=== PATIENT | female | born 1940 | race Caucasian/White ===

== ENCOUNTER 2020-06-11 21:34 | Observation (INO) | payer MEDICARE ==
[2020-06-11] MEDS ORDERED: Sodium Chloride 0.9% 1000 ML 1,000 ML IV SCH (22:00)
[2020-06-11] MEDS ORDERED: ROCEPHIN 1 Gm-D5w 50 ml Bag** 1 G/50 ML IVPB IV ONE ×2 (22:01→22:10)
[2020-06-11 22:11] LABS: Absolute Neutrophil Ct (ANC) 6.45 (1.4-6.9); BASOPHIL % 0.2 % (0.0-0.4); Basophil (Absolute #) 0.02 (0-0.4); Eosinophil % 2.1 % (0.00-5.0); Eosinophil (Absolute #) 0.19 (0-0.5); Hematocrit 37.1 % (35-47); Hemoglobin 12.1 gm/dl (12.0-16.0); Lymphocyte (Absolute #) 1.76 (1.0-4.6); Lymphocytes % 19.2 % (24.0-44.0); Mean Corpuscular Hemoglobin 30.3 pg (26-32); Mean Corpuscular Hgb Concent. 32.6 g/dl (32-36); Mean Platelet Volume 8.8 fl (7.5-11.0); Monocyte (Absolute #) 0.75 (0.0-1.3); Monocytes % 8.2 % (0.0-12.0); Neutrophil % 70.3 % (36.0-66.0); Platelet Count 347 K/mm3 (150-450); Red Blood Count 3.99 M/mm3 (4.1-5.4); Red Cell Distribution Width 14.1 % (11.5-14.0); White Blood Count 9.2 K/mm3 (4.0-10.5)
[2020-06-11 22:26] LABS: ALBUMIN 4.7 g/dL (3.5-5.0); ANION GAP 16.6 MEQ/L (5-15); BILIRUBIN,TOTAL 0.4 mg/dL (0.2-1.3); Creatinine 1 1.13 mg/dL (0.52-1.04); EST GLOMERULAR FILTRATION RATE 49.5 ML/MIN; Potassium 3.3 mmol/L (3.5-5.1); Total Protein 8.3 g/dL (6.3-8.2)
[2020-06-11 22:31] LABS: Appearance SLIGHTLY CLOUDY (CLEAR); Bacteria MODERATE /HPF (NEGATIVE); Bilirubin NEGATIVE (NEGATIVE); Blood NEGATIVE Ery/ul (0-5); Glucose NEGATIVE (NEGATIVE); Ketones NEGATIVE (NEGATIVE); Leukocyte Esterase LARGE (NEGATIVE); Mucus SLIGHT /HPF (NEGATIVE); Nitrite NEGATIVE (NEGATIVE); Protein,Urine Dip NEGATIVE (Negative); Specific Gravity 1.012 (1.005-1.025); Urobilinogen NEGATIVE mg/dL (0-1); WBC 51-100 /HPF (0-5)
--- NOTE | 2020-06-11 22:47 | ERPHSYRPT ---
- History of Present Illness Source: family, EMS Exam Limitations: clinical condition Patient Subjective Stated Complaint: ems states that they were called to the home for abd pain and diarrhea Triage Nursing Assessment: pt came into er via ambulance, pt is alert, pt is co nfused, pt cover is feces, prolaspe rectum present, hyperactive bowel sounds in all quads, clear lung sounds in all lobes, states pain to rectum, vital wnl Physician History: 79 yo female bib ems. called ems. sts pt was having abd pain, confusion and incessant diarrhea. EMS confirms diarrhea No fever. Some nausea. Pt was not comprehending him and got concerned. Diarrhea started few hours ago. Timing/Duration: today Severity: moderate Associated Symptoms: nausea, malaise Allergies/Adverse Reactions: No Known Drug Allergies Allergy (Unverified 05/29/15 21:13) Home Medications: ALPRAZolam [Xanax 0.5 mg] 0.5 mg PO TID 10/18/14 [History] Amitriptyline HCl 50 mg PO HS 10/18/14 [History] B12/Levomefolate Calcium/B-6 [Folbic Rf Tablet] 1 tab PO DAILY 10/18/14 [History] Memantine HCl [Namenda] 10 mg PO DAILY 10/18/14 [History] Rosuvastatin Calcium [Crestor] 5 mg PO HS 10/18/14 [History] Trandolapril/Verapamil HCl [Tarka ER 4-240 mg Tablet] 1 tab PO DAILY 10/18/14 [History] Meloxicam 7.5 mg PO 06/11/20 [History] Hx Tetanus, Diphtheria Vaccination/Date Given: No (unknown) Hx Influenza Vaccination/Date Given: No (unknown) Hx Pneumococcal Vaccination/Date Given: No (unknown) Travel Risk - International Travel Have you traveled outside of the country in past 3 weeks: No - Coronavirus Screening Are you exhibiting any of the following symptoms?: Yes Symptoms: Vomiting/Diarrhea Close contact with a COVID-19 positive Pt in past 14-21 Days: No - Review of Systems Constitutional: Malaise, No Fever, No Chills Eyes: No Symptoms Ears, Nose, & Throat: No Symptoms Respiratory: No Cough, No Dyspnea Cardiac: No Chest Pain, No Edema, No Syncope Abdominal/Gastrointestinal: Abdominal Pain, Nausea, Diarrhea, No Vomiting Genitourinary Symptoms: No Dysuria Musculoskeletal: No Back Pain, No Neck Pain Skin: No Rash Neurological: No Dizziness, No Focal Weakness, No Sensory Changes Psychological: No Symptoms Endocrine: No Symptoms All Other Systems: Reviewed and Negative - Past Medical History Pertinent Past Medical History: Yes Neurological History: Dementia Cardiac History: High Cholesterol, Hypertension Musculoskeletal History: Degenerative Disk Disease, Osteoarthritis, Osteoporosis Psycho-Social History: Depression - Past Surgical History Past Surgical History: Yes - Social History Smoking Status: Current every day smoker Exposure to second hand smoke: No Drug Use: none Patient Lives Alone: No - Female History Hx Now: No - Nursing Vital Signs Nursing Vital Signs: Initial Vital Signs Temperature 97.4 F 06/11/20 21:42 Pulse Rate 61 06/11/20 21:42 Respiratory Rate 18 06/11/20 21:42 Blood Pressure 94/51 06/11/20 21:42 O2 Sat by Pulse Oximetry 94 L 06/11/20 21:42 Pain Scale Pain Intensity 0 - Physical Exam General Appearance: no apparent distress, alert Eye Exam: PERRL/EOMI, eyes nml inspection Ears, Nose, Throat Exam: normal ENT inspection, TMs normal, pharynx normal, dry mucous membranes Neck Exam: normal inspection, non-tender, supple, full range of motion Respiratory Exam: normal breath sounds, lungs clear, No respiratory distress Cardiovascular Exam: regular rate/rhythm, normal heart sounds, normal peripheral pulses Gastrointestinal/Abdomen Exam: soft, normal bowel sounds, No tenderness, No mass Pelvic Exam: not done Rectal Exam: tenderness, decreased tone, other (mild prolapsed rectum.) Back Exam: normal inspection, normal range of motion, No CVA tenderness, No vertebral tenderness Extremity Exam: normal inspection, normal range of motion, pelvis stable Neurologic Exam: alert, oriented x 3, cooperative, normal mood/affect, nml cerebellar function, nml station & gait, sensation nml, No motor deficits Skin Exam: normal color, warm, dry, No rash Lymphatic Exam: No adenopathy SpO2: 92 - Course Nursing assessment & vital signs reviewed: Yes EKG Interpreted by Me: RATE ([id number]), Sinus Rhythm, prolonged QT interval Ordered Tests: Active Orders 24 hr Category Date Time Status Up With Assistance ROUTINE Activity 06/11/20 23:12 Active Code Status Order ROUTINE Care 06/11/20 23:12 Active EKG-ER Only STAT Care 06/11/20 22:08 Active Fall Protocol ROUTINE Care 06/11/20 23:14 Active Roberts [Catheter-[place] Roberts] STAT Care 06/11/20 21:52 Active IV Care Q6H Care 06/11/20 23:12 Active IV Insertion STAT Care 06/11/20 21:47 Active IV Insertion-2nd Peripheral STAT Care 06/11/20 22:08 Active Intake and Output Q12H Care 06/11/20 23:12 Active Neuro Checks Q4H Care 06/11/20 23:[address] in Observation ROUTINE Care 06/11/20 23:12 Active Telemetry q6h Care 06/11/20 23:12 Active Vital Signs Q4H Care 06/11/20 23:12 Active Heart-Healthy Diet Diet 06/12/20 Breakfast Active BLOOD CULTURE Stat Lab 06/11/20 22:25 Received CBC W DIFF AM.LAB Lab 06/12/20 04:00 Ordered CBC W DIFF Stat Lab 06/11/20 22:00 Completed CMP AM.LAB Lab 06/12/20 04:00 Ordered CMP Stat Lab 06/11/20 22:00 Completed CULTURE,URINE Stat Lab 06/11/20 21:50 Received LIPASE Stat Lab 06/11/20 22:00 Completed UA W/RFX UR CULTURE Stat Lab 06/11/20 21:50 Completed Oxygen Oxymizer LPM 2 lpm RT 06/11/20 23:12 Active Pulse Oximetry CONTINUOUS RT 06/11/20 23:14 Active Medication Summary Generic Name Dose Route Start Last Admin Trade Name Freq PRN Reason Stop Dose Admin Acetaminophen 650 mg 06/11/20 23:12 Tylenol 325 Mg PO 07/11/20 23:11 Q4H PRN PRN PAIN AND/OR FEVER Sodium Chloride 1,000 mls @ 100 mls/hr 06/11/20 22:00 06/11/20 22:13 Sodium Chloride 0.9% 1000 Ml IV 07/11/20 21:59 100 mls/hr .Q10H ÓSCAR Administration Potassium Chloride/Sodium Chloride 1,000 mls @ 100 mls/hr 06/11/20 23:15 Sodium Chloride 0.9% W/ 20 Meq Kcl/Liter IV 07/11/20 23:14 .Q10H ÓSCAR Ceftriaxone Sodium/Dextrose 1 g in 50 mls @ 100 mls/hr 06/12/20 10:00 Rocephin 1 Gm-D5w 50 Ml Bag IV 07/12/20 09:59 Q24H10 ÓSCAR Discontinued Medications Generic Name Dose Route Start Last Admin Trade Name Constantine PRN Reason Stop Dose Admin Alprazolam 0.5 mg 06/11/20 23:17 06/11/20 23:22 Xanax 0.5 Mg PO 06/11/20 23:18 0.5 mg STAT ONE Administration Alprazolam Confirm 06/11/20 23:22 Xanax 0.5 Mg Administered 06/11/20 23:23 Dose 0.5 mg .ROUTE .STK-MED ONE Ceftriaxone Sodium/Dextrose 1 g in 50 mls @ 100 mls/hr 06/11/20 22:01 06/11/20 23:06 Rocephin 1 Gm-D5w 50 Ml Bag IV 06/11/20 22:30 Infused STAT ONE Infusion Ceftriaxone Sodium/Dextrose Confirm 06/11/20 22:10 Rocephin 1 Gm-D5w 50 Ml Bag Administered 06/11/20 22:11 Dose 1 g in 50 mls @ ud IV .STK-MED ONE Lab/Rad Data: Laboratory Result Diagrams 06/11/20 22:00 06/11/20 22:00 Laboratory Results 06/11/20 06/11/20 06/11/20 Range/Units 22:00 22:00 21:50 WBC 9.2 (4.0-10.5) K/mm3 RBC 3.99 L (4.1-5.4) M/mm3 Hgb 12.1 (12.0-16.0) gm/dl Hct 37.1 (35-47) % MCV 93.0 (78-100) fl MCH 30.3 (26-32) pg MCHC 32.6 (32-36) g/dl RDW 14.1 H (11.5-14.0) % Plt Count 347 (150-450) K/mm3 MPV 8.8 (7.5-11.0) fl Gran % 70.3 H (36.0-66.0) % Eos # (Auto) 0.19 (0-0.5) Absolute Lymphs (auto) 1.76 (1.0-4.6) Absolute Monos (auto) 0.75 (0.0-1.3) Lymphocytes % 19.2 L (24.0-44.0) % Monocytes % 8.2 (0.0-12.0) % Eosinophils % 2.1 (0.00-5.0) % Basophils % 0.2 (0.0-0.4) % Absolute Granulocytes 6.45 (1.4-6.9) Basophils # 0.02 (0-0.4) Sodium 133 L (137-145) mmol/L Potassium 3.3 L (3.5-5.1) mmol/L Chloride 97 L (98-107) mmol/L Carbon Dioxide 23 (22-30) mmol/L Anion Gap 16.6 H (5-15) MEQ/L BUN 16 (7-17) mg/dL Creatinine 1.13 H (0.52-1.04) mg/dL Estimated GFR 49.5 ML/MIN Glucose 132 H (74-106) mg/dL Calcium 10.0 (8.4-10.2) mg/dL Total Bilirubin 0.40 (0.2-1.3) mg/dL AST 32 (14-36) U/L ALT 14 (0-35) U/L Alkaline Phosphatase 108 (38-126) U/L Serum Total Protein 8.3 H (6.3-8.2) g/dL Albumin 4.7 (3.5-5.0) g/dL Lipase 261 (23-300) U/L Urine Color YELLOW (YELLOW) Urine Appearance SLIGHTLY CLOUDY (CLEAR) Urine pH 6.0 (5-6) Ur Specific [place] 1.012 (1.005-1.025) Urine Protein NEGATIVE (Negative) Urine Ketones NEGATIVE (NEGATIVE) Urine Blood NEGATIVE (0-5) Ld/ul Urine Nitrite NEGATIVE (NEGATIVE) Urine Bilirubin NEGATIVE (NEGATIVE) Urine Urobilinogen NEGATIVE (0-1) mg/dL Ur Leukocyte Esterase LARGE (NEGATIVE) Urine WBC (Auto) 51-100 (0-5) /HPF Urine RBC (Auto) 6-10 (0-2) /HPF U Epithel Cells (Auto) NONE (FEW) /HPF Urine Bacteria (Auto) MODERATE (NEGATIVE) /HPF Urine Mucus (Auto) SLIGHT (NEGATIVE) /HPF Urine Culture Reflexed ORDERED SEPARATELY (NO) Urine Glucose NEGATIVE (NEGATIVE) mg/dL - Progress Progress: improved Progress Note: 06/11/20 23:37 work up for abd pain with labs and UA. Did not feel imaging was necessary given benign exam. Labs normal. No further workup. UA positive for UTI. Rocephin IV, IVF Admit for obs, IV abx, IVF, monitoring. D/w Dr. Chrisyt who agrees with admission. Discussed with : Mar Will see patient in: hospital (observation) Counseled pt/family regarding: lab results, diagnosis - Departure Departure Disposition: Observation Clinical Impression: UTI (urinary tract infection), Diarrhea Condition: Stable Critical Care Time: No Referrals: ALEX ECSALERA MD [Primary Care Provider] -
[2020-06-11] MEDS ORDERED: TYLENOL 325 MG PO PRN (23:12)
[2020-06-11] MEDS ORDERED: Sodium Chloride 0.9% W/ 20 mEq KCl/LITER 1,000 ML IV SCH (23:15)
[2020-06-11] MEDS ORDERED: xanAX 0.5 MG PO ONE (23:17)
[2020-06-11] MEDS ORDERED: xanAX 0.5 MG ONE (23:22)
[2020-06-12 05:08] LABS: BASOPHIL % 0.1 % (0.0-0.4); Basophil (Absolute #) 0.01 (0-0.4); Eosinophil % 0.5 % (0.00-5.0); Eosinophil (Absolute #) 0.04 (0-0.5); Hematocrit 32.4 % (35-47); Hemoglobin 10.5 gm/dl (12.0-16.0); Lymphocyte (Absolute #) 1.19 (1.0-4.6); Lymphocytes % 14.9 % (24.0-44.0); Mean Cell Volume 93.1 fl (78-100); Mean Corpuscular Hemoglobin 30.2 pg (26-32); Mean Corpuscular Hgb Concent. 32.4 g/dl (32-36); Mean Platelet Volume 8.9 fl (7.5-11.0); Monocyte (Absolute #) 0.77 (0.0-1.3); Monocytes % 9.6 % (0.0-12.0); Neutrophil % 74.9 % (36.0-66.0); Platelet Count 304 K/mm3 (150-450); Red Blood Count 3.48 M/mm3 (4.1-5.4); Red Cell Distribution Width 14.2 % (11.5-14.0)
[2020-06-12 05:26] LABS: ALBUMIN 3.8 g/dL (3.5-5.0); ANION GAP 11.5 MEQ/L (5-15); BILIRUBIN,TOTAL 0.3 mg/dL (0.2-1.3); Calcium 9.1 mg/dL (8.4-10.2); Creatinine 1 0.99 mg/dL (0.52-1.04); EST GLOMERULAR FILTRATION RATE 57.7 ML/MIN; Potassium 4.8 mmol/L (3.5-5.1)
--- NOTE | 2020-06-12 09:06 | PCM.HP ---
History of Present Illness - Chief Complaint Chief Complaint: UTI, Diarrhea History of Present Illness: is a 79 year old female.states that they were called to the home for abd pain and diarrhea - Review of Systems Constitutional: Fever, Chills, Fatigue, Lethargy, Weakness Eyes: No Symptoms Ears, Nose, & Throat: No Symptoms Respiratory: No Cough, No Short Of Breath Cardiac: No Chest Pain, No Edema, No Syncope Abdominal/Gastrointestinal: Abdominal Pain, Nausea, Vomiting, Diarrhea Genitourinary Symptoms: No Dysuria Musculoskeletal: No Back Pain, No Neck Pain Skin: No Rash Neurological: No Dizziness, No Focal Weakness, No Sensory Changes Psychological: No Symptoms Endocrine: No Symptoms Hematologic/Lymphatic: No Symptoms Immunological/Allergic: No Symptoms Medications & Allergies Home Medications: Home Medication List ALPRAZolam [Xanax 0.5 mg] 0.5 mg PO HS 10/18/14 [History Confirmed 06/12/20] Amitriptyline HCl 50 mg PO HS 10/18/14 [History Confirmed 06/11/20] B12/Levomefolate Calcium/B-6 [Folbic Rf Tablet] 1 tab PO DAILY 10/18/14 [History Confirmed 06/11/20] Memantine HCl [Namenda] 10 mg PO HS 10/18/14 [History Confirmed 06/12/20] Rosuvastatin Calcium [Crestor] 5 mg PO HS 10/18/14 [History Confirmed 06/11/20] Trandolapril/Verapamil HCl [Tarka ER 4-240 mg Tablet] 1 tab PO DAILY 10/18/14 [History Confirmed 06/11/20] Meloxicam 7.5 mg PO DAILY 06/11/20 [History Confirmed 06/12/20] Acetaminophen 325 mg [Tylenol 325 mg] 650 mg PO Q6HPRN PRN 06/12/20 [History Confirmed 06/12/20] Allergies/Adverse Reactions: Allergies Allergy/AdvReac Type Severity Reaction Status Date / Time No Known Drug Allergies Allergy Unverified 05/29/15 21:13 - Past Medical History Past Medical History: Yes Neurological History: Dementia Cardiac History: High Cholesterol, Hypertension Musculoskelatal History: Degenerative Disk Disease, Osteoarthritis, Osteoporosis Pyscho-Social History: Depression Comment: pt is a poor historian- no family accompanying pt due to Covid restrictions - Female History Are you now?: No - Past Surgical History Past Surgical History: Yes Other Surgical History: pt is a poor historian- no family accompanying pt due to Covid restrictions - Social History Smoking Status: Current every day smoker Exposure to second hand smoke: No Alcohol: None Drug Use: none - Physical Exam Vital Signs: Vital Signs - 24 hr Temp Pulse Resp BP BP Pulse Ox 06/12/20 07:51 98.1 F 73 16 117/59 94 L 06/12/20 07:31 98 06/12/20 04:00 97.8 F 70 20 102/59 96 06/12/20 00:24 97.5 F 71 20 114/57 93 L 06/12/20 00:21 97.5 F 71 20 114/57 93 L 06/12/20 00:12 97.5 F 71 20 114/57 93 L 06/11/20 23:39 92 L 06/11/20 23:14 93 L 06/11/20 23:05 66 19 92/54 98 06/11/20 22:27 68 18 93/55 92 L 06/11/20 21:42 97.4 F 61 18 94/51 94 L General Appearance: mild distress, lethargy Neurologic Exam: alert, sensation nml, No motor deficits Eye Exam: PERRL/EOMI Ears, Nose, Throat Exam: normal ENT inspection, TMs normal, pharynx normal, moist mucous membranes Neck Exam: normal inspection, non-tender, supple, full range of motion Respiratory Exam: normal breath sounds, lungs clear, No respiratory distress Cardiovascular Exam: regular rate/rhythm, normal heart sounds, normal peripheral pulses Gastrointestinal/Abdomen Exam: soft, tenderness, distention, pulsatile mass (left groin), rebound, No mass Back Exam: normal inspection, normal range of motion, No CVA tenderness, No vertebral tenderness Extremity Exam: normal inspection, normal range of motion, pelvis stable Skin Exam: normal color, warm, dry, No rash Lymphatic Exam: No adenopathy Results - Labs Lab/Micro Results: Lab Results-Last 24 Hours 06/11/20 06/11/20 06/11/20 Range/Units 21:50 22:00 22:00 WBC 9.2 (4.0-10.5) K/mm3 RBC 3.99 L (4.1-5.4) M/mm3 Hgb 12.1 (12.0-16.0) gm/dl Hct 37.1 (35-47) % MCV 93.0 (78-100) fl MCH 30.3 (26-32) pg MCHC 32.6 (32-36) g/dl RDW 14.1 H (11.5-14.0) % Plt Count 347 (150-450) K/mm3 MPV 8.8 (7.5-11.0) fl Gran % 70.3 H (36.0-66.0) % Eos # (Auto) 0.19 (0-0.5) Absolute Lymphs (auto) 1.76 (1.0-4.6) Absolute Monos (auto) 0.75 (0.0-1.3) Lymphocytes % 19.2 L (24.0-44.0) % Monocytes % 8.2 (0.0-12.0) % Eosinophils % 2.1 (0.00-5.0) % Basophils % 0.2 (0.0-0.4) % Absolute Granulocytes 6.45 (1.4-6.9) Basophils # 0.02 (0-0.4) Sodium 133 L (137-145) mmol/L Potassium 3.3 L (3.5-5.1) mmol/L Chloride 97 L (98-107) mmol/L Carbon Dioxide 23 (22-30) mmol/L Anion Gap 16.6 H (5-15) MEQ/L BUN 16 (7-17) mg/dL Creatinine 1.13 H (0.52-1.04) mg/dL Estimated GFR 49.5 ML/MIN Glucose 132 H (74-106) mg/dL Calcium 10.0 (8.4-10.2) mg/dL Total Bilirubin 0.40 (0.2-1.3) mg/dL AST 32 (14-36) U/L ALT 14 (0-35) U/L Alkaline Phosphatase 108 (38-126) U/L Serum Total Protein 8.3 H (6.3-8.2) g/dL Albumin 4.7 (3.5-5.0) g/dL Lipase 261 (23-300) U/L Urine Color YELLOW (YELLOW) Urine Appearance SLIGHTLY CLOUDY (CLEAR) Urine pH 6.0 (5-6) Ur Specific [place] 1.012 (1.005-1.025) Urine Protein NEGATIVE (Negative) Urine Ketones NEGATIVE (NEGATIVE) Urine Blood NEGATIVE (0-5) Ld/ul Urine Nitrite NEGATIVE (NEGATIVE) Urine Bilirubin NEGATIVE (NEGATIVE) Urine Urobilinogen NEGATIVE (0-1) mg/dL Ur Leukocyte Esterase LARGE (NEGATIVE) Urine WBC (Auto) 51-100 (0-5) /HPF Urine RBC (Auto) 6-10 (0-2) /HPF U Epithel Cells (Auto) NONE (FEW) /HPF Urine Bacteria (Auto) MODERATE (NEGATIVE) /HPF Urine Mucus (Auto) SLIGHT (NEGATIVE) /HPF Urine Culture Reflexed ORDERED SEPARATELY (NO) Urine Glucose NEGATIVE (NEGATIVE) mg/dL 06/12/20 06/12/20 Range/Units 04:45 04:45 WBC 8.0 (4.0-10.5) K/mm3 RBC 3.48 L (4.1-5.4) M/mm3 Hgb 10.5 L (12.0-16.0) gm/dl Hct 32.4 L (35-47) % MCV 93.1 (78-100) fl MCH 30.2 (26-32) pg MCHC 32.4 (32-36) g/dl RDW 14.2 H (11.5-14.0) % Plt Count 304 (150-450) K/mm3 MPV 8.9 (7.5-11.0) fl Gran % 74.9 H (36.0-66.0) % Eos # (Auto) 0.04 (0-0.5) Absolute Lymphs (auto) 1.19 (1.0-4.6) Absolute Monos (auto) 0.77 (0.0-1.3) Lymphocytes % 14.9 L (24.0-44.0) % Monocytes % 9.6 (0.0-12.0) % Eosinophils % 0.5 (0.00-5.0) % Basophils % 0.1 (0.0-0.4) % Absolute Granulocytes 6.00 (1.4-6.9) Basophils # 0.01 (0-0.4) Sodium 132 L (137-145) mmol/L Potassium 4.8 D (3.5-5.1) mmol/L Chloride 102 (98-107) mmol/L Carbon Dioxide 23 (22-30) mmol/L Anion Gap 11.5 (5-15) MEQ/L BUN 15 (7-17) mg/dL Creatinine 0.99 (0.52-1.04) mg/dL Estimated GFR 57.7 ML/MIN Glucose 102 (74-106) mg/dL Calcium 9.1 (8.4-10.2) mg/dL Total Bilirubin 0.30 (0.2-1.3) mg/dL AST 30 (14-36) U/L ALT 13 (0-35) U/L Alkaline Phosphatase 78 (38-126) U/L Serum Total Protein 7.0 (6.3-8.2) g/dL Albumin 3.8 (3.5-5.0) g/dL Lipase (23-300) U/L Urine Color (YELLOW) Urine Appearance (CLEAR) Urine pH (5-6) Ur Specific [place] (1.005-1.025) Urine Protein (Negative) Urine Ketones (NEGATIVE) Urine Blood (0-5) Ld/ul Urine Nitrite (NEGATIVE) Urine Bilirubin (NEGATIVE) Urine Urobilinogen (0-1) mg/dL Ur Leukocyte Esterase (NEGATIVE) Urine WBC (Auto) (0-5) /HPF Urine RBC (Auto) (0-2) /HPF U Epithel Cells (Auto) (FEW) /HPF Urine Bacteria (Auto) (NEGATIVE) /HPF Urine Mucus (Auto) (NEGATIVE) /HPF Urine Culture Reflexed (NO) Urine Glucose (NEGATIVE) mg/dL - Radiology Impressions Radiology Exams & Impressions: Radiology Procedures Category Date Time Status ABDOMEN AND PELVIS W&WO CONTRA [CT] Urgent Exams 06/12/20 09:00 Ordered - Other Procedures and Tests Respiratory Therapy 06/11/20 23:12 Oxygen Oxymizer LPM 2 lpm Assessment/Plan (1) Abdominal pain, left lower quadrant Current Visit: Yes Status: Acute Assessment & Plan: Chief Complaint Diagnosis UTI, Diarrhea Allergies Allergy/AdvReac Type Severity Reaction Status Date / Time No Known Drug Allergies Allergy Unverified 05/29/15 21:13 Vital Signs (Last 24 hours) Temp Pulse Resp BP BP Pulse Ox 06/12/20 07:51 98.1 F 73 16 117/59 94 L 06/12/20 07:31 98 06/12/20 04:00 97.8 F 70 20 102/59 96 09/22/20 00:24 97.5 F 71 20 114/57 93 L 06/12/20 00:21 97.5 F 71 20 114/57 93 L 06/12/20 00:12 97.5 F 71 20 114/57 93 L 06/11/20 23:39 92 L 06/11/20 23:14 93 L 06/11/20 23:05 66 19 92/54 98 06/11/20 22:27 68 18 93/55 92 L 06/11/20 21:42 97.4 F 61 18 94/51 94 L Home Medications Medication Instructions Recorded Confirmed Last Taken Type Meloxicam 7.5 mg PO DAILY 06/11/20 06/12/20 Unknown History Acetaminophen 325 mg [Tylenol 650 mg PO Q6HPRN PRN 06/12/20 06/12/20 Unknown History 325 mg] Current Medications Generic Name Dose Route Start Last Admin Trade Name Freq PRN Reason Stop Dose Admin Acetaminophen 650 mg 06/11/20 23:12 Tylenol 325 Mg PO 07/11/20 23:11 Q4H PRN PRN PAIN AND/OR FEVER Potassium Chloride/Sodium Chloride 1,000 mls @ 100 mls/hr 06/11/20 23:15 06/11/20 23:50 Sodium Chloride 0.9% W/ 20 Meq Kcl/Liter IV 07/11/20 23:14 100 mls/hr .Q10H ÓSCAR Administration Ceftriaxone Sodium/Dextrose 1 g in 50 mls @ 100 mls/hr 06/12/20 22:00 Rocephin 1 Gm-D5w 50 Ml Bag IV 07/12/20 21:59 Q24H22 ÓSCAR Discontinued Medications Generic Name Dose Route Start Last Admin Trade Name Freq PRN Reason Stop Dose Admin Alprazolam 0.5 mg 06/11/20 23:17 06/11/20 23:22 Xanax 0.5 Mg PO 06/11/20 23:18 0.5 mg STAT ONE Administration Alprazolam Confirm 06/11/20 23:22 Xanax 0.5 Mg Administered 06/11/20 23:23 Dose 0.5 mg .ROUTE .STK-MED ONE Sodium Chloride 1,000 mls @ 100 mls/hr 06/11/20 22:00 06/11/20 22:13 Sodium Chloride 0.9% 1000 Ml IV 07/11/20 21:59 100 mls/hr .Q10H ÓSCAR Administration Ceftriaxone Sodium/Dextrose 1 g in 50 mls @ 100 mls/hr 06/11/20 22:01 06/11/20 23:06 Rocephin 1 Gm-D5w 50 Ml Bag IV 06/11/20 22:30 Infused STAT ONE Infusion Ceftriaxone Sodium/Dextrose Confirm 06/11/20 22:10 Rocephin 1 Gm-D5w 50 Ml Bag Administered 06/11/20 22:11 Dose 1 g in 50 mls @ ud IV .STK-MED ONE Intake & Output (Last 24 hours) 06/09/20 06/10/20 06/11/20 06/12/20 11:59 11:59 11:59 11:59 Intake Total 652 Output Total 250 Balance 402 Weight 51.9 kg Microbiology Results (Last 24 hours) 06/11/20 22:25 Blood Blood Culture Gram Stain - Pending 06/11/20 22:25 Blood Blood Culture - Pending 06/11/20 21:50 Catherized Urine Culture - Pending 06/11/20 22:00 Blood Blood Culture Gram Stain - Pending 06/11/20 22:00 Blood Blood Culture - Pending Laboratory Results (Last 24 hours) 06/12/20 06/12/20 06/11/20 04:45 04:45 22:00 WBC 8.0 RBC 3.48 L Hgb 10.5 L Hct 32.4 L MCV 93.1 MCH 30.2 MCHC 32.4 RDW 14.2 H Plt Count 304 MPV 8.9 Gran % 74.9 H Eos # (Auto) 0.04 Absolute Lymphs (auto) 1.19 Absolute Monos (auto) 0.77 Lymphocytes % 14.9 L Monocytes % 9.6 Eosinophils % 0.5 Basophils % 0.1 Absolute Granulocytes 6.00 Basophils # 0.01 Sodium 132 L 133 L Potassium 4.8 D 3.3 L Chloride 102 97 L Carbon Dioxide 23 23 Anion Gap 11.5 16.6 H BUN 15 16 Creatinine 0.99 1.13 H Estimated GFR 57.7 49.5 Glucose 102 132 H Calcium 9.1 10.0 Total Bilirubin 0.30 0.40 AST 30 32 ALT 13 14 Alkaline Phosphatase 78 108 Serum Total Protein 7.0 8.3 H Albumin 3.8 4.7 Lipase 261 Urine Color Urine Appearance Urine pH Ur Specific [place] Urine Protein Urine Ketones Urine Blood Urine Nitrite Urine Bilirubin Urine Urobilinogen Ur Leukocyte Esterase Urine WBC (Auto) Urine RBC (Auto) U Epithel Cells (Auto) Urine Bacteria (Auto) Urine Mucus (Auto) Urine Culture Reflexed Urine Glucose 06/11/20 06/11/20 22:00 21:50 WBC 9.2 RBC 3.99 L Hgb 12.1 Hct 37.1 MCV 93.0 MCH 30.3 MCHC 32.6 RDW 14.1 H Plt Count 347 MPV 8.8 Gran % 70.3 H Eos # (Auto) 0.19 Absolute Lymphs (auto) 1.76 Absolute Monos (auto) 0.75 Lymphocytes % 19.2 L Monocytes % 8.2 Eosinophils % 2.1 Basophils % 0.2 Absolute Granulocytes 6.45 Basophils # 0.02 Sodium Potassium Chloride Carbon Dioxide Anion Gap BUN Creatinine Estimated GFR Glucose Calcium Total Bilirubin AST ALT Alkaline Phosphatase Serum Total Protein Albumin Lipase Urine Color YELLOW Urine Appearance SLIGHTLY CLOUDY Urine pH 6.0 Ur Specific [place] 1.012 Urine Protein NEGATIVE Urine Ketones NEGATIVE Urine Blood NEGATIVE Urine Nitrite NEGATIVE Urine Bilirubin NEGATIVE Urine Urobilinogen NEGATIVE Ur Leukocyte Esterase LARGE Urine WBC (Auto) 51-100 Urine RBC (Auto) 6-10 U Epithel Cells (Auto) NONE Urine Bacteria (Auto) MODERATE Urine Mucus (Auto) SLIGHT Urine Culture Reflexed ORDERED SEPARATELY Urine Glucose NEGATIVE Orders (Last 24 hours) Category Date Time Status Up With Assistance ROUTINE Activity 06/11/20 23:12 Active Code Status Order ROUTINE Care 06/11/20 23:12 Active EKG-ER Only STAT Care 06/11/20 22:08 Active Fall Protocol Q1H Care 06/11/20 23:14 Active Roberts [Catheter-[place] Roberts] STAT Care 06/11/20 21:52 Active IV Care Q6H Care 06/11/20 23:12 Active IV Insertion STAT Care 06/11/20 21:47 Active IV Insertion-2nd Peripheral STAT Care 06/11/20 22:08 Active Intake and Output Q12H Care 06/11/20 23:12 Active Neuro Checks Q4H Care 06/11/20 23:[address] in Observation ROUTINE Care 06/11/20 23:12 Active Telemetry q6h Care 06/11/20 23:12 Active Vital Signs Q4H Care 06/11/20 23:12 Active Infection Control Consult ROUTINE Cons 06/12/20 00:30 Active Heart-Healthy Diet Diet 06/12/20 Breakfast Completed NPO Diet 06/12/20 08:59 Active ABDOMEN AND PELVIS W&WO CONTRA [CT] Urgent Exams 06/12/20 09:00 Ordered ABDOMINAL-LIMITED [US] Urgent Exams 06/12/20 09:10 Ordered PELVIC [US] Urgent Exams 06/12/20 09:10 Ordered BLOOD CULTURE Stat Lab 06/11/20 22:25 Received CBC W DIFF AM.LAB Lab 06/12/20 04:45 Completed CBC W DIFF Stat Lab 06/11/20 22:00 Completed CMP AM.LAB Lab 06/12/20 04:45 Completed CMP Stat Lab 06/11/20 22:00 Completed CULTURE,URINE Stat Lab 06/11/20 21:50 Received LIPASE Stat Lab 06/11/20 22:00 Completed UA W/RFX UR CULTURE Stat Lab 06/11/20 21:50 Completed Acetaminophen 325 mg [Tylenol 325 mg] Med 06/11/20 23:12 Active 650 mg PO Q4H PRN PRN Alprazolam 0.5 mg [xanAX 0.5 MG] Med 06/11/20 23:22 Discontinued 0.5 mg .ROUTE .STK-MED ONE Alprazolam 0.5 mg [xanAX 0.5 MG] Med 06/11/20 23:17 Discontinued 0.5 mg PO STAT ONE Ceftriaxone 1 GM/50 ML PREMIX* [ROCEPHIN 1 Gm-D5w 50 ml Med 06/12/20 22:00 Active Bag] 1 g in 50 ml IV Q24H22 Ceftriaxone 1 GM/50 ML PREMIX* [ROCEPHIN 1 Gm-D5w 50 ml Med 06/11/20 22:01 Discontinued Bag] 1 g in 50 ml IV STAT Ceftriaxone 1 GM/50 ML PREMIX* [ROCEPHIN 1 Gm-D5w 50 ml Med 06/11/20 22:10 Discontinued Bag] 1 g in 50 ml IV UD NaCl 0.9% 1000 ml + KCl 20 Meq [Sodium Chloride 0.9% W/ Med 06/11/20 23:15 Active 20 mEq KCl/LITER] 1,000 ml IV 100 mls/hr NaCl 0.9% 1000 ml [Sodium Chloride 0.9% 1000 ML] 1,000 Med 06/11/20 22:00 Discontinued ml IV 100 mls/hr Oxygen Oxymizer LPM 2 lpm RT 06/11/20 23:12 Active Pulse Oximetry CONTINUOUS RT 06/11/20 23:14 Active Smoking Cessation Education ONCE RT 06/12/20 00:30 Completed Patient Care Notes (Last 24 hours) 06/12/20 00:31 Nursing Note by Estefania Jane Pt is confused and unable to verify home medication list. This nurse will [facility] to obtain list from Dr. Schreiber's office. Pt is also unable to verify code status, so she will be made a full code until this can be discussed with spouse. Addendum entered by Estefania Jane RN 06/12/20 00:36: Also this nurse is unable to verify Flu vaccine status. Initialized on 06/12/20 00:31 - END OF NOTE Code(s): R10.32 - LEFT LOWER QUADRANT PAIN (2) Diarrhea Current Visit: Yes Status: Acute Code(s): R19.7 - DIARRHEA, UNSPECIFIED (3) Dementia Current Visit: Yes Status: Acute Qualifiers: Dementia type: vascular dementia Code(s): F03.90 - UNSPECIFIED DEMENTIA WITHOUT BEHAVIORAL DISTURBANCE (4) UTI (urinary tract infection) Current Visit: Yes Status: Acute Code(s): N39.0 - URINARY TRACT INFECTION, SITE NOT SPECIFIED
[2020-06-12] MEDS ORDERED: VERAPAMIL HCL PO SCH (10:00)
[2020-06-12] MEDS ORDERED: TRANDOLAPRIL PO SCH (10:00)
[2020-06-12] MEDS ORDERED: ISOPTIN S.R. 240 MG PO SCH (10:00)
[2020-06-12] MEDS ORDERED: Mavik 2 MG PO SCH (10:00)
[2020-06-12] MEDS ORDERED: B12 PO SCH (10:00)
[2020-06-12] MEDS ORDERED: FOLTX (FOLBIC) PO SCH (10:00)
[2020-06-12] MEDS ORDERED: LEVOMEFOLATE CALCIUM PO SCH (10:00)
[2020-06-12] MEDS ORDERED: MELOXICAM PO SCH (10:00)
[2020-06-12] MEDS ORDERED: B6 PO SCH (10:00)
--- NOTE | 2020-06-12 12:00 | XRAY ---
Indication: Left groin mass. Two-dimensional targeted soft tissue ultrasound left groin demonstrates a 3.5 x 2.2 x 3.2 cm heterogeneous hypoechogenic solid mass with peripheral color Doppler flow favoring adenopathy. No other solid/cystic mass or abnormal fluid collection.
--- NOTE | 2020-06-12 13:14 | XRAY ---
Indication: Groin pain 7 days. No known injury. Multiple contiguous axial images obtained through the abdomen and pelvis without contrast as ordered. Comparison: June 13, 2010. Lung bases/upper abdomen is slightly degraded by respiration artifact. New moderate bibasilar dependent atelectasis and incompletely visualized 7 mm right middle lobe noncalcified nodule. Stable posterior left lower lobe calcified granuloma. Heart is not enlarged. New small hiatal hernia. Left groin demonstrates new 2.7 x 3.3 x 3.7 cm noncalcified soft tissue mass favoring adenopathy. No ventral or inguinal hernias. Noncontrasted stomach and bowel loops appear nonobstructed. Again scattered sigmoid diverticulosis more than before. New Roberts balloon catheter empties the urinary bladder. Appendectomy reported. Stable splenic calcified granulomas. No free fluid/air. Remaining liver, gallbladder, pancreas, spleen, adrenal glands, kidneys, ureters, bladder, and uterus appear unremarkable for noncontrast exam. Progressive worsening heavy scattered vascular calcifications with new distal AAA measuring 2.4 x 2.8 cm. Osseous structures again demonstrates osteopenia with mild double curvature thoracolumbar scoliosis. Progressive worsening multilevel thoracolumbar degenerative spondylosis. Superior endplate L1 demonstrates new concave deformity with 25% height loss favoring remote fracture. Impression: 1. New left inguinal lymphadenopathy as detailed either reactive versus malignancy. 2. New incompletely visualized 7 mm right middle lobe noncalcified nodule. Finding could be granulomatous as there is evidence for old granulomatous disease elsewhere. Outside comparison studies recommended if available. If not, CT chest recommended to establish baseline with follow-up per Fleischner guidelines. 3. 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 4. New remote-appearing L1 superior endplate fracture. 5. New small hiatal hernia and Roberts catheter in situ. 6. Again sigmoid diverticulosis, osteopenia, multilevel degenerative spondylosis, and scoliosis.
[2020-06-12] MEDS ORDERED: ROCEPHIN 1 Gm-D5w 50 ml Bag** 1 G/50 ML IVPB IV ONE (15:07)
--- NOTE | 2020-06-12 16:15 | PCM.DCORD ---
- Discharge Discharge Date: 06/12/20 Disposition: Home, Self-Care Condition: Stable Prescriptions: New Cephalexin Mh 500 mg [Keflex 500 mg] 500 mg PO QID 10 Days #40 capsule No Action Trandolapril/Verapamil HCl [Tarka ER 4-240 mg Tablet] 1 tab PO DAILY Rosuvastatin Calcium [Crestor] 5 mg PO HS B12/Levomefolate Calcium/B-6 [Folbic Rf Tablet] 1 tab PO DAILY Amitriptyline HCl 50 mg PO HS Memantine HCl [Namenda] 10 mg PO HS ALPRAZolam [Xanax 0.5 mg] 0.5 mg PO HS Meloxicam 7.5 mg PO DAILY Acetaminophen 325 mg [Tylenol 325 mg] 650 mg PO Q6HPRN PRN PRN Reason: Pain Instructions: Urinary Tract Infection, Adult (DC) Additional Instructions: Follow up with Dr. Escalera in office, he will discuss results from your CT scan and Ultrasound at the appointment. Take full amount of antibiotics as prescribed, even when symptoms improve Follow up with: ALEX ESCALERA MD [Primary Care Provider] - 06/22/20 9:30 am
[2020-06-12 16:34] VITALS: BP 114/58; PULSE 75; O2SAT 97
[2020-06-12] MEDS ORDERED: NON-FORMULARY ITEM (Memantine Hcl [Namenda] 10 MG) PO SCH (22:00)
[2020-06-12] MEDS ORDERED: xanAX 0.5 MG PO SCH (22:00)
[2020-06-12] MEDS ORDERED: Zocor 10MG PO SCH (22:00)
[2020-06-12] MEDS ORDERED: ROCEPHIN 1 Gm-D5w 50 ml Bag** 1 G/50 ML IVPB IV SCH (22:00)
[2020-06-12] MEDS ORDERED: NON-FORMULARY ITEM (Rosuvastatin Calcium [Crestor] 5 MG) PO SCH (22:00)
[2020-06-12] MEDS ORDERED: Namenda 5 MG PO SCH (22:00)
== END 2020-06-12 16:25 | disposition home or self-care (01) ==
LOC: ED 21:34 → MED SURG 23:35
PROVIDERS: ADMIT General Practice; ATTEND General Practice
DX: R10.32 Left lower quadrant pain (principal); R19.7 Diarrhea, unspecified; N39.0 Urinary tract infection, site not specified; F03.90 Unspecified dementia, unspecified severity, without behavioral disturbance, psychotic disturbance, mood disturbance, and anxiety; I10 Essential (primary) hypertension; E78.00 Pure hypercholesterolemia, unspecified; Z79.899 Other long term (current) drug therapy
CPT/HCPCS: 36000; 36415; 51702; 74176; 76881; 80053; 81001; 83615; 83690; 85025; 87040; 87086; 93005; 93268; 94762; 96360; 96365; 99285; G0378; J0696; A9270-GY

== ENCOUNTER 2020-08-18 12:39 | Emergency (ER) | payer MEDICARE ==
--- NOTE | 2020-08-18 12:44 | ERPHSYRPT ---
- History of Present Illness Time Seen by Provider: 08/18/20 12:44 Source: patient Exam Limitations: no limitations Physician History: This is a 79-year-old white female who has a history of dementia, osteoporosis, hypertension and hypercholesterolemia and fell onto her right hip when trying to get up off a low level couch. She complains of right hip pain and lower back pain. Patient has a history of right-sided sciatica in the past. Patient has no other pain complaints and no other sites of injury per her report and to her 's report. He witnessed the fall. Occurred approximately 1030 to 11:00 this morning Timing/Duration: today Occured at: home Context: fall Quality: aching Hip Pain Location: hip (R) Severity of Pain-Max: moderate Severity of Pain-Current: moderate Modifying Factors: Improves With: movement, other (Palpation of the right hip hurts) Symptoms prior to fall: none Associated Symptoms: denies symptoms Allergies/Adverse Reactions: No Known Drug Allergies Allergy (Verified 08/18/20 13:09) Home Medications: ALPRAZolam [Xanax 0.5 mg] 0.5 mg PO HS 10/18/14 [History] Amitriptyline HCl 50 mg PO HS 10/18/14 [History] B12/Levomefolate Calcium/B-6 [Folbic Rf Tablet] 1 tab PO DAILY 10/18/14 [History] Memantine HCl [Namenda] 10 mg PO HS 10/18/14 [History] Rosuvastatin Calcium [Crestor] 5 mg PO HS 10/18/14 [History] Trandolapril/Verapamil HCl [Tarka ER 4-240 mg Tablet] 1 tab PO DAILY 10/18/14 [History] Meloxicam 7.5 mg PO DAILY 06/11/20 [History] Acetaminophen 325 mg [Tylenol 325 mg] 650 mg PO Q6HPRN PRN 06/12/20 [Hist ory] Hx Tetanus, Diphtheria Vaccination/Date Given: No (unknown) Hx Influenza Vaccination/Date Given: No (unknown) Hx Pneumococcal Vaccination/Date Given: No (unknown) Travel Risk - International Travel Have you traveled outside of the country in past 3 weeks: No - Coronavirus Screening Are you exhibiting any of the following symptoms?: No Close contact with a COVID-19 positive Pt in past 14-21 Days: No - Review of Systems Constitutional: No Symptoms Eyes: No Symptoms Ears, Nose, & Throat: No Symptoms Respiratory: No Symptoms Cardiac: No Symptoms Abdominal/Gastrointestinal: No Symptoms Genitourinary Symptoms: No Symptoms Musculoskeletal: Injury (Right hip) Skin: No Symptoms Neurological: No Symptoms Psychological: No Symptoms Endocrine: No Symptoms Hematologic/Lymphatic: No Symptoms Immunological/Allergic: No Symptoms All Other Systems: Reviewed and Negative - Past Medical History Pertinent Past Medical History: Yes Neurological History: Dementia ENT History: No Pertinent History Cardiac History: High Cholesterol, Hypertension Respiratory History: No Pertinent History Endocrine Medical History: No Pertinent History Musculoskeletal History: Degenerative Disk Disease, Osteoarthritis, Osteoporosis GI Medical History: No Pertinent History History: No Pertinent History Psycho-Social History: Depression Other Medical History: pt is a poor historian- no family accompanying pt due to Covid restrictions - Past Surgical History Past Surgical History: Yes Neuro Surgical History: No Pertinent History Cardiac: No Pertinent History Respiratory: No Pertinent History Gastrointestinal: No Pertinent History Genitourinary: No Pertinent History Musculoskeletal: No Pertinent History Female Surgical History: No Pertinent History Other Surgical History: pt is a poor historian- no family accompanying pt due to Covid restrictions - Social History Smoking Status: Current every day smoker Exposure to second hand smoke: No Drug Use: none Patient Lives Alone: No - Nursing Vital Signs Nursing Vital Signs: Initial Vital Signs Temperature 97.8 F 08/18/20 12:54 Pulse Rate 70 08/18/20 12:54 Respiratory Rate 20 08/18/20 12:54 Blood Pressure 103/72 08/18/20 12:54 O2 Sat by Pulse Oximetry 95 08/18/20 12:54 Pain Scale Pain Intensity 0 - Physical Exam General Appearance: no apparent distress Eye Exam: PERRL/EOMI, eyes nml inspection Ears, Nose, Throat Exam: normal ENT inspection, moist mucous membranes Neck Exam: normal inspection, non-tender, supple, full range of motion Respiratory Exam: airway intact, No chest tenderness, No respiratory distress Gastrointestinal Exam: No tenderness Pelvic Exam: not done Back Exam: normal inspection, normal range of motion, muscle spasm (Right side), No CVA tenderness, No vertebral tenderness Extremity Exam: normal inspection, pelvis stable, tenderness (Right hip to palpation) Neurologic Exam: alert, cooperative, yield engineer II-XII nml as tested, normal mood/affect, nml cerebellar function, sensation nml Skin Exam: normal color, warm, dry Lymphatic Exam: No adenopathy SpO2 Interpretation: normal O2 Delivery: Room Air - Course Nursing assessment & vital signs reviewed: Yes Ordered Tests: Active Orders 24 hr Category Date Time Status IV Insertion STAT Care 08/18/20 13:37 Active HIP UNI (2V) INCL PEL IF DONE Stat Exams 08/18/20 13:00 Completed LOWER EXTREMITY WO CONTRAST [CT] Stat Exams 08/18/20 16:35 Taken LUMBAR LIMITED (2 OR 3 VIEWS) Stat Exams 08/18/20 13:01 Completed CBC W DIFF Stat Lab 08/18/20 19:06 Ordered CMP Stat Lab 08/18/20 19:06 Ordered PROTIME WITH INR Stat Lab 08/18/20 19:06 Ordered Medication Summary Discontinued Medications Generic Name Dose Route Start Last Admin Trade Name Freq PRN Reason Stop Dose Admin Lorazepam 0.5 mg 08/18/20 13:37 08/18/20 13:54 Ativan 2 Mg/1 Ml Vial IV 08/18/20 13:38 0.5 mg STAT ONE Administration Lorazepam Confirm 08/18/20 13:53 Ativan 2 Mg/1 Ml Vial Administered 08/18/20 13:54 Dose 2 mg .ROUTE .STK-MED ONE Methylprednisolone Sodium Succinate 125 mg 08/18/20 15:32 08/18/20 15:51 Solu-Medrol 125 Mg IV 08/18/20 15:33 125 mg STAT ONE Administration Methylprednisolone Sodium Succinate Confirm 08/18/20 15:50 Solu-Medrol 125 Mg Administered 08/18/20 15:51 Dose 125 mg .ROUTE .STK-MED ONE Morphine Sulfate 2 mg 08/18/20 13:18 08/18/20 13:43 Morphine Sulfate 2 Mg Inj IM 08/18/20 13:19 2 mg STAT ONE Administration Morphine Sulfate Confirm 08/18/20 13:19 Morphine Sulfate 2 Mg Inj Administered 08/18/20 13:20 Dose 2 mg .ROUTE .STK-MED ONE Ondansetron HCl 4 mg 08/18/20 13:19 08/18/20 13:44 Zofran Odt 4 Mg PO 08/18/20 13:20 4 mg STAT ONE Administration Ondansetron HCl Confirm 08/18/20 13:19 Zofran Odt 4 Mg Administered 08/18/20 13:20 Dose 4 mg .ROUTE .STK-MED ONE - Progress Progress: improved, pain not gone completely, re-examined Progress Note: 08/18/20 16:09 X-ray of the lumbar spine reveals chronic changes only. I do not not see any acute fracture or subluxation. Lumbar spine #1 has chronic compression fracture present. Clinically, the patient states that she is feeling much better. In fact she states I feel pretty good. We are awaiting the final read from the virtual radiology report. If this is negative for any acute fracture or dislocation, the patient be discharged to home with prescription for steroids and a few days of pain medication. 08/18/20 18:24 Dr. Payne, our radiologist, over read the read of the right hip x-ray performed on this patient. He states that the right hip demonstrates an acute nondisplaced right subcapital femur fracture. There is an old right pubic symphysis fracture. I discussed these findings with the patient's spouse. They are agreeable to be transferred to [facility] for evaluation by Ortho to determine whether or not a surgical procedure is necessary. 08/18/20 18:28 CAT scan of the right hip without contrast reveals a tiny hairline fracture of the subcapital proximal right femur. The neck of the femur appears to be impacted into the head to a minimal degree. The right femoral head is normally positioned within the hip joint acetabulum. 08/18/20 19:11 Medical decision making: I spoke with Dr. Devang Ackerman, the emergency room physician on staff at [facility] in [place]. I reviewed the patient history and x-ray findings with him. He accepts the patient in transfer. We have put the x-rays on the cloud. Counseled pt/family regarding: diagnosis, rad results - Departure Departure Disposition: Transfer Clinical Impression: Closed fracture of right superior pubic ramus, Fracture of femur, subcapital, closed Condition: Stable Critical Care Time: No Referrals: ALEX ESCALERA MD [Primary Care Provider] -
[2020-08-18] MEDS ORDERED: MORPHINE SULFATE 2 MG INJ IM ONE (13:18)
[2020-08-18] MEDS ORDERED: ZOFRAN ODT 4 MG PO ONE (13:19)
[2020-08-18] MEDS ORDERED: MORPHINE SULFATE 2 MG INJ ONE ×2 (13:19→19:48)
[2020-08-18] MEDS ORDERED: ZOFRAN ODT 4 MG ONE (13:19)
[2020-08-18] MEDS ORDERED: Ativan 2 MG/1 ML VIAL IV ONE (13:37)
[2020-08-18] MEDS ORDERED: Ativan 2 MG/1 ML VIAL ONE (13:53)
[2020-08-18] MEDS ORDERED: solu-MEDROL 125 MG IV ONE (15:32)
[2020-08-18] MEDS ORDERED: solu-MEDROL 125 MG ONE (15:50)
--- NOTE | 2020-08-18 17:33 | XRAY ---
Indication: Pain following fall. Comparison: July 26, 2018. AP/crosstable lateral lumbar spine demonstrates new remote-appearing L1 superior endplate fracture with less than 25% height loss. Stable osteopenia, moderate levorotoscoliosis centered at L4, mild/moderate multilevel degenerative spondylosis, and extensive scattered vascular calcifications.
--- NOTE | 2020-08-18 17:41 | XRAY ---
Indication: Right hip pain following fall. Comparison: None AP pelvis and 2 view right hip demonstrates acute nondisplaced right subcapital femur fracture. Elsewhere osteopenia, lower lumbar degenerative spondylosis, old right pubic symphysis fracture, and minimal vascular calcifications. No other bony, articular, or soft tissue abnormalities. Comment: Preliminary interpretation was made by [facility]. No critical discrepancy.
[2020-08-18 19:28] VITALS: BP 138/60; PULSE 80; O2SAT 95
[2020-08-18] MEDS ORDERED: MORPHINE SULFATE 2 MG INJ IV ONE (19:30)
[2020-08-18 19:33] LABS: Absolute Neutrophil Ct (ANC) 7.25 (1.4-6.9); BASOPHIL % 0.1 % (0.0-0.4); Basophil (Absolute #) 0.01 (0-0.4); Eosinophil % 0.2 % (0.00-5.0); Eosinophil (Absolute #) 0.02 (0-0.5); Hematocrit 37.1 % (35-47); Hemoglobin 12.4 gm/dl (12.0-16.0); Lymphocyte (Absolute #) 0.77 (1.0-4.6); Lymphocytes % 9.4 % (24.0-44.0); Mean Cell Volume 92.3 fl (78-100); Mean Corpuscular Hemoglobin 30.8 pg (26-32); Mean Corpuscular Hgb Concent. 33.4 g/dl (32-36); Mean Platelet Volume 9.4 fl (7.5-11.0); Monocyte (Absolute #) 0.13 (0.0-1.3); Monocytes % 1.6 % (0.0-12.0); Neutrophil % 88.7 % (36.0-66.0); Platelet Count 201 K/mm3 (150-450); Red Blood Count 4.02 M/mm3 (4.1-5.4); Red Cell Distribution Width 13.7 % (11.5-14.0); White Blood Count 8.2 K/mm3 (4.0-10.5)
[2020-08-18 19:42] LABS: INR 1.13 (0.8-3.0); PROTIME 12.8 SECONDS (9.95-12.35)
[2020-08-18 19:47] LABS: ALBUMIN 4.6 g/dL (3.5-5.0); ALKALINE PHOSPHATASE 105 U/L (38-126); ANION GAP 12.4 MEQ/L (5-15); BLOOD UREA NITROGEN 13 mg/dL (7-17); CHLORIDE 102 mmol/L (98-107); Calcium 9.7 mg/dL (8.4-10.2); Carbon Dioxide 25 mmol/L (22-30); Creatinine 1 0.75 mg/dL (0.52-1.04); EST GLOMERULAR FILTRATION RATE > 60.0 ML/MIN; Glucose 144 mg/dL (74-106); Potassium 4.1 mmol/L (3.5-5.1); SGOT/AST 32 U/L (14-36); SGPT/ALT 17 U/L (0-35); SODIUM 135 mmol/L (137-145); Total Protein 7.8 g/dL (6.3-8.2)
--- NOTE | 2020-08-18 21:09 | XRAY ---
ndication: Right hip pain following fall. Multiple contiguous axial images obtained through the right hip. Sagittal and coronal reformatted images obtained. Comparison: None. Osseous structures demineralized consistent with patient's age. There is nondisplaced acute subcapital fracture. Old right pubic symphysis fracture. No other fracture, suspicious bony lesions, or osseous destructive process. Right hip articulation intact without effusion. Visualized surrounding soft tissues demonstrates minimal vascular calcifications. Impression: 1. Nondisplaced subcapital fracture. 2. Osteopenia and old right pubic symphysis fracture. Comment: Preliminary interpretation was made by [facility]. No critical discrepancy.
== END 2020-08-18 20:00 | disposition short-term general hospital (02) ==
LOC: ED 12:39
DX: S32.599A Other specified fracture of unspecified pubis, initial encounter for closed fracture (principal); S72.011A Unspecified intracapsular fracture of right femur, initial encounter for closed fracture; M54.5 Low back pain; I10 Essential (primary) hypertension; M81.0 Age-related osteoporosis without current pathological fracture; E78.00 Pure hypercholesterolemia, unspecified; W18.39XA Other fall on same level, initial encounter; Y93.89 Activity, other specified; M54.31 Sciatica, right side; M25.551 Pain in right hip; Z79.899 Other long term (current) drug therapy
CPT/HCPCS: 36000; 36415; 72100; 73502; 73700; 80053; 85025; 85610; 96372; 96374; 96375; 96376; 99285; J2060; J2270; J2930; Q0162

== ENCOUNTER 2021-01-14 12:19 | Observation (INO) | payer MEDICARE ==
[2021-01-14 12:56] LABS: BASOPHIL % 0.1 % (0.0-0.4); Basophil (Absolute #) 0.01 (0-0.4); Eosinophil % 0.4 % (0.00-5.0); Eosinophil (Absolute #) 0.03 (0-0.5); Hematocrit 31.5 % (35-47); Lymphocyte (Absolute #) 1.42 (1.0-4.6); Lymphocytes % 17.8 % (24.0-44.0); Mean Cell Volume 91.3 fl (78-100); Mean Corpuscular Hgb Concent. 31.7 g/dl (32-36); Mean Platelet Volume 9.5 fl (7.5-11.0); Monocyte (Absolute #) 0.51 (0.0-1.3); Monocytes % 6.4 % (0.0-12.0); Neutrophil % 75.3 % (36.0-66.0); Platelet Count 217 K/mm3 (150-450); Red Blood Count 3.45 M/mm3 (4.1-5.4); Red Cell Distribution Width 14.7 % (11.5-14.0)
[2021-01-14 13:03] LABS: Appearance CLOUDY (CLEAR); Bacteria MANY /HPF (NEGATIVE); Bilirubin NEGATIVE (NEGATIVE); Blood SMALL Ery/ul (0-5); Glucose NEGATIVE (NEGATIVE); Ketones SMALL (NEGATIVE); Leukocyte Esterase SMALL (NEGATIVE); Mucus SLIGHT /HPF (NEGATIVE); Nitrite POSITIVE (NEGATIVE); Protein,Urine Dip 30 (Negative); RBC 0-2 /HPF (0-2); Specific Gravity 1.021 (1.005-1.025); Urobilinogen 2 mg/dL (0-1); WBC 51-100 /HPF (0-5)
--- NOTE | 2021-01-14 13:09 | ERPHSYRPT ---
- History of Present Illness Source: patient Exam Limitations: other (Pt w dementia) Patient Subjective Stated Complaint: EMS reports being called out for weakness/lethargy. EMS reports home health RN states pt is increasingly weaker, more lethargic, and more confused x 2 weeks. Triage Nursing Assessment: pt to ED by EMS for weakness and increased confusion. EMS reports home health RN states pt is increasingly weaker, more lethargic, and more confused x 2 weeks. EMS also reports hx dementia. lives at home with and is on his way to ED now. will assess further with his assistance. pt A&O to self and intermittenly to place. states she is unsure why she is in ED now. Physician History: 80 yo wf w advanced dementia presents w increasing lethargy/confusion x 2 wks. History obtained through primary care pediatrician. Cough/fever/N/V/D/focal weakness are all denied. She has become more incontinent of urine. DNR per primary care pediatrician. Timing/Duration: other (2wks) Modifying Factors: Improves With: nothing Associated Symptoms: loss of appetite, malaise, weakness, No nausea, No vomiting, No abdominal pain, No shortness of breath, No heartburn, No diaphoresis, No cough, No chills, No chest pain, No fever, No headaches, No rash, No syncope, No seizure Allergies/Adverse Reactions: No Known Drug Allergies Allergy (Verified 08/18/20 13:09) Home Medications: Amitriptyline HCl 50 mg PO HS 10/18/14 [History] Memantine HCl [Namenda] 10 mg PO HS 10/18/14 [History] Rosuvastatin Calcium [Crestor] 5 mg PO HS 10/18/14 [History] Trandolapril/Verapamil HCl [Tarka ER 4-240 mg Tablet] 0.5 tab PO UD 10/18/14 [History] Acetaminophen 325 mg [Tylenol 325 mg] 650 mg PO Q6HPRN PRN 06/12/20 [History] Cyanocobalamin/Folic AC/Vit B6 [Folbic Tablet] 1 tab PO DAILY 01/14/21 [History] Donepezil HCl 10 mg [Aricept 10 MG] 10 mg PO HS 01/14/21 [History] Loratadine 10 mg [Claritin 10 mg] 10 mg PO DAILY 01/14/21 [History] Melatonin 10 mg PO HS 01/14/21 [History] Oxybutynin Chloride Xl 5 mg [Ditropan XL 5 MG] 5 mg PO DAILY 01/14/21 [History] Tramadol HCl/Acetaminophen [Ultracet Tablet] 1 tab PO Q8HPRN PRN 01/14/21 [History] Hx Tetanus, Diphtheria Vaccination/Date Given: No (unknown) Hx Influenza Vaccination/Date Given: No (unknown) Hx Pneumococcal Vaccination/Date Given: No (unknown) Travel Risk - International Travel Have you traveled outside of the country in past 3 weeks: No - Coronavirus Screening Are you exhibiting any of the following symptoms?: No Close contact with a COVID-19 positive Pt in past 14-21 Days: No - Vaccine Status Have you recieved a Covid-19 vaccination: (unknown at this time) - Review of Systems Constitutional: No Symptoms, Fatigue, Lethargy Eyes: No Symptoms Ears, Nose, & Throat: No Symptoms Respiratory: No Symptoms Cardiac: No Symptoms Abdominal/Gastrointestinal: No Symptoms Genitourinary Symptoms: No Symptoms, Incontinence Musculoskeletal: No Symptoms Skin: No Symptoms Neurological: No Symptoms, Lethargy Psychological: No Symptoms Endocrine: No Symptoms Hematologic/Lymphatic: No Symptoms Immunological/Allergic: No Symptoms - Past Medical History Pertinent Past Medical History: Yes Neurological History: Dementia ENT History: No Pertinent History Cardiac History: High Cholesterol, Hypertension Respiratory History: No Pertinent History Endocrine Medical History: No Pertinent History Musculoskeletal History: Degenerative Disk Disease, Osteoarthritis, Osteoporosis GI Medical History: No Pertinent History History: No Pertinent History Psycho-Social History: Depression Other Medical History: pt is a poor historian- 01/14/21 - Past Surgical History Past Surgical History: Yes Neuro Surgical History: No Pertinent History Cardiac: No Pertinent History Respiratory: No Pertinent History Gastrointestinal: No Pertinent History Genitourinary: No Pertinent History Musculoskeletal: No Pertinent History Female Surgical History: No Pertinent History Other Surgical History: pt is a poor historian- 01/14/21 - Social History Smoking Status: Current every day smoker How long have you smoked: years Exposure to second hand smoke: No Drug Use: none Patient Lives Alone: No Significant Family History: no pertinent family hx - Nursing Vital Signs Nursing Vital Signs: Initial Vital Signs Temperature 98.4 F 01/14/21 12:20 Pulse Rate 77 01/14/21 12:20 Respiratory Rate 17 01/14/21 12:20 Blood Pressure 118/78 01/14/21 12:20 O2 Sat by Pulse Oximetry 95 01/14/21 12:20 Pain Scale Pain Intensity 0 - Physical Exam General Appearance: no apparent distress Eye Exam: PERRL/EOMI, eyes nml inspection Ears, Nose, Throat Exam: pharynx normal, moist mucous membranes Neck Exam: normal inspection, non-tender, supple, full range of motion, No meningismus, No mass, No Brudzinski, No Kernig's Respiratory Exam: airway intact, crackles/rales (Faint at bases B), No respiratory distress Cardiovascular Exam: regular rate/rhythm, murmur (3/6 KIM) Back Exam: normal inspection, normal range of motion, No CVA tenderness, No vertebral tenderness Extremity Exam: normal inspection, normal range of motion, pelvis stable Neurologic Exam: alert (Disoriented to place/Time(baseline)), cooperative, 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, sensation nml, No motor deficits, No sensory deficit Skin Exam: normal color, warm, dry, No rash Lymphatic Exam: No adenopathy SpO2 Interpretation: normal SpO2: 95 O2 Delivery: Room Air - Course Nursing assessment & vital signs reviewed: Yes EKG Interpreted by Me: RATE (NSR/R75/Normal QT-QTc/Poor quality tracing due to artifact/Low voltage/No acute ST-Twave changes) - Radiology Exams Chest X-ray Interpretation: Discussed w/ radiologist (Increased B interstritual lung markings) Ordered Tests: Active Orders 24 hr Category Date Time Status EKG-ER Only STAT Care 01/14/21 12:25 Completed IV Insertion STAT Care 01/14/21 12:25 Completed Heart-Healthy Diet Diet 01/14/21 Dinner Active CHEST 1 VIEW (PORTABLE) Stat Exams 01/14/21 12:25 Completed BLOOD CULTURE Stat Lab 01/14/21 15:40 Received CBC W DIFF AM.LAB Lab 01/15/21 04:00 Ordered CBC W DIFF Stat Lab 01/14/21 12:45 Completed CMP AM.LAB Lab 01/15/21 04:00 Ordered CMP Stat Lab 01/14/21 12:43 Completed CULTURE,URINE Stat Lab 01/14/21 12:43 Received Lactic Acid Stat Lab 01/14/21 12:43 Completed NT PRO BNP Stat Lab 01/14/21 13:59 Completed TROPONIN Q3H Lab 01/14/21 12:43 Completed TROPONIN Q3H Lab 01/14/21 15:40 Completed TROPONIN Q3H Lab 01/14/21 18:50 Completed TROPONIN Q3H Lab 01/14/21 21:52 Completed TROPONIN Q3H Lab 01/15/21 00:30 Ordered UA W/RFX UR CULTURE Stat Lab 01/14/21 12:43 Completed Urine Triage Profile Stat Lab 01/14/21 12:43 Completed Medication Summary Generic Name Dose Route Start Last Admin Trade Name Freq PRN Reason Stop Dose Admin Acetaminophen 650 mg 01/14/21 17:25 Tylenol 325 Mg PO 02/13/21 17:24 Q6HPRN PRN PAIN Acetaminophen 325 mg 01/14/21 17:33 01/14/21 18:55 Tylenol 325 Mg PO 02/13/21 17:32 325 mg Q8H/PRN PRN Administration PAIN Amitriptyline HCl 50 mg 01/14/21 22:00 01/14/21 21:06 Amitriptyline Hcl 50 Mg Tablet PO 02/13/21 21:59 50 mg HS ÓSCAR Administration Donepezil HCl 10 mg 01/14/21 22:00 01/14/21 21:07 Aricept 10 Mg PO 02/13/21 21:59 10 mg HS ÓSCAR Administration Folic Acid 1 tab 01/14/21 18:00 01/14/21 18:39 Foltx (Folbic) PO 02/13/21 17:59 1 tab DAILY ÓSCAR Administration Sodium Chloride 1,000 mls @ 100 mls/hr 01/14/21 15:15 01/14/21 16:11 Sodium Chloride 0.9% 1000 Ml IV 02/13/21 15:14 100 mls/hr .Q10H ÓSCAR Administration Ceftriaxone Sodium/Dextrose 1 g in 50 mls @ 100 mls/hr 01/15/21 10:00 Rocephin 1 Gm-D5w 50 Ml Bag IV 01/18/21 09:59 Q24H10 ÓSCAR Loratadine 10 mg 01/14/21 18:00 01/14/21 18:37 Claritin 10 Mg PO 02/13/21 17:59 10 mg DAILY ÓSCAR Administration Memantine 10 mg 01/14/21 22:00 01/14/21 21:07 Namenda 5 Mg PO 02/13/21 21:59 10 mg HS ÓSCAR Administration Miscellaneous Information 1 each 01/14/21 17:45 Medication Intervention PO 02/13/21 17:44 .RN TO CHECK ON ÓSCAR Ondansetron HCl 4 mg 01/14/21 15:22 Zofran 4 Mg/2 Ml Vial IV 02/13/21 15:21 Q6H PRN PRN NAUSEA/VOMITING Oxybutynin Chloride 5 mg 01/14/21 18:00 01/14/21 18:37 Ditropan Xl 5 Mg PO 02/13/21 17:59 5 mg DAILY ÓSCAR Administration Pantoprazole Sodium 40 mg 01/14/21 17:00 01/14/21 16:12 Protonix 40 Mg Iv IV 02/13/21 16:59 40 mg Q24H10 ÓSCAR Administration Simvastatin 10 mg 01/14/21 22:00 01/14/21 21:07 Zocor 10mg PO 02/13/21 21:59 10 mg HS ÓSCAR Administration Tramadol HCl 50 mg 01/14/21 17:32 01/14/21 18:54 Ultram 50 Mg PO 02/13/21 17:31 50 mg Q8H/PRN PRN Administration PAIN Trandolapril 2 mg 01/15/21 10:00 Mavik 2 Mg PO 02/14/21 09:59 QOD ÓSCAR Verapamil HCl 120 mg 01/15/21 10:00 Isoptin S.R. 240 Mg PO 02/14/21 09:59 QOD ÓSCAR Discontinued Medications Generic Name Dose Route Start Last Admin Trade Name Freq PRN Reason Stop Dose Admin Ceftriaxone Sodium/Dextrose 1 g in 50 mls @ 100 mls/hr 01/14/21 15:25 01/14/21 15:46 Rocephin 1 Gm-D5w 50 Ml Bag IV 01/14/21 15:54 100 mls/hr STAT STA 100 mls/hr Administration Ceftriaxone Sodium/Dextrose Confirm 01/14/21 15:44 Rocephin 1 Gm-D5w 50 Ml Bag Administered 01/14/21 15:45 Dose 1 g in 50 mls @ ud IV .STK-MED ONE Lab/Rad Data: Laboratory Result Diagrams 01/14/21 12:45 01/14/21 12:43 Laboratory Results 01/14/21 01/14/21 01/14/21 Range/Units 15:40 14:33 13:59 WBC (4.0-10.5) K/mm3 RBC (4.1-5.4) M/mm3 Hgb (12.0-16.0) gm/dl Hct (35-47) % MCV (78-100) fl MCH (26-32) pg MCHC (32-36) g/dl RDW (11.5-14.0) % Plt Count (150-450) K/mm3 MPV (7.5-11.0) fl Gran % (36.0-66.0) % Eos # (Auto) (0-0.5) Absolute Lymphs (auto) (1.0-4.6) Absolute Monos (auto) (0.0-1.3) Lymphocytes % (24.0-44.0) % Monocytes % (0.0-12.0) % Eosinophils % (0.00-5.0) % Basophils % (0.0-0.4) % Absolute Granulocytes (1.4-6.9) Basophils # (0-0.4) Sodium (137-145) mmol/L Potassium (3.5-5.1) mmol/L Chloride (98-107) mmol/L Carbon Dioxide (22-30) mmol/L Anion Gap (5-15) MEQ/L BUN (7-17) mg/dL Creatinine (0.52-1.04) mg/dL Estimated GFR ML/MIN Glucose (74-106) mg/dL Lactic Acid (0.4-2.0) Calcium (8.4-10.2) mg/dL Total Bilirubin (0.2-1.3) mg/dL AST (14-36) U/L ALT (0-35) U/L Alkaline Phosphatase (38-126) U/L Troponin I 0.020 (0.000-0.034) ng/mL NT-Pro-B Natriuret Pep 687 (0-1800) pg/mL Serum Total Protein (6.3-8.2) g/dL Albumin (3.5-5.0) g/dL Urine Color (YELLOW) Urine Appearance (CLEAR) Urine pH (5-6) Ur Specific Honeydew (1.005-1.025) Urine Protein (Negative) Urine Ketones (NEGATIVE) Urine Blood (0-5) Ld/ul Urine Nitrite (NEGATIVE) Urine Bilirubin (NEGATIVE) Urine Urobilinogen (0-1) mg/dL Ur Leukocyte Esterase (NEGATIVE) Urine WBC (Auto) (0-5) /HPF Urine RBC (Auto) (0-2) /HPF U Epithel Cells (Auto) (FEW) /HPF Urine Bacteria (Auto) (NEGATIVE) /HPF Urine Mucus (Auto) (NEGATIVE) /HPF Urine Culture Reflexed (NO) Urine Glucose (NEGATIVE) mg/dL Urine Opiates Level (NEGATIVE) Ur Methadone (NEGATIVE) Urine Barbiturates (NEGATIVE) Ur Phencyclidine (PCP) (NEGATIVE) Urine Amphetamine (NEGATIVE) U Benzodiazepine Level (NEGATIVE) Urine Cocaine (NEGATIVE) Urine Marijuana (THC) (NEGATIVE) Influenza Type A Ag NEGATIVE (NEGATIVE) Influenza Type B Ag NEGATIVE (NEGATIVE) RSV (PCR) NEGATIVE (Negative) SARS-CoV-2 (PCR) NEGATIVE (NEGATIVE) 01/14/21 01/14/21 01/14/21 Range/Units 12:45 12:43 12:43 WBC 8.0 (4.0-10.5) K/mm3 RBC 3.45 L (4.1-5.4) M/mm3 Hgb 10.0 L (12.0-16.0) gm/dl Hct 31.5 L (35-47) % MCV 91.3 (78-100) fl MCH 29.0 (26-32) pg MCHC 31.7 L (32-36) g/dl RDW 14.7 H (11.5-14.0) % Plt Count 217 (150-450) K/mm3 MPV 9.5 (7.5-11.0) fl Gran % 75.3 H (36.0-66.0) % Eos # (Auto) 0.03 (0-0.5) Absolute Lymphs (auto) 1.42 (1.0-4.6) Absolute Monos (auto) 0.51 (0.0-1.3) Lymphocytes % 17.8 L (24.0-44.0) % Monocytes % 6.4 (0.0-12.0) % Eosinophils % 0.4 (0.00-5.0) % Basophils % 0.1 (0.0-0.4) % Absolute Granulocytes 6.00 (1.4-6.9) Basophils # 0.01 (0-0.4) Sodium (137-145) mmol/L Potassium (3.5-5.1) mmol/L Chloride (98-107) mmol/L Carbon Dioxide (22-30) mmol/L Anion Gap (5-15) MEQ/L BUN (7-17) mg/dL Creatinine (0.52-1.04) mg/dL Estimated GFR ML/MIN Glucose (74-106) mg/dL Lactic Acid 0.9 (0.4-2.0) Calcium (8.4-10.2) mg/dL Total Bilirubin (0.2-1.3) mg/dL AST (14-36) U/L ALT (0-35) U/L Alkaline Phosphatase (38-126) U/L Troponin I (0.000-0.034) ng/mL NT-Pro-B Natriuret Pep (0-1800) pg/mL Serum Total Protein (6.3-8.2) g/dL Albumin (3.5-5.0) g/dL Urine Color MARCELA (YELLOW) Urine Appearance CLOUDY (CLEAR) Urine pH 5.0 (5-6) Ur Specific Honeydew 1.021 (1.005-1.025) Urine Protein 30 (Negative) Urine Ketones SMALL (NEGATIVE) Urine Blood SMALL (0-5) Ld/ul Urine Nitrite POSITIVE (NEGATIVE) Urine Bilirubin NEGATIVE (NEGATIVE) Urine Urobilinogen 2 (0-1) mg/dL Ur Leukocyte Esterase SMALL (NEGATIVE) Urine WBC (Auto) 51-100 (0-5) /HPF Urine RBC (Auto) 0-2 (0-2) /HPF U Epithel Cells (Auto) NONE (FEW) /HPF Urine Bacteria (Auto) MANY (NEGATIVE) /HPF Urine Mucus (Auto) SLIGHT (NEGATIVE) /HPF Urine Culture Reflexed YES (NO) Urine Glucose NEGATIVE (NEGATIVE) mg/dL Urine Opiates Level (NEGATIVE) Ur Methadone (NEGATIVE) Urine Barbiturates (NEGATIVE) Ur Phencyclidine (PCP) (NEGATIVE) Urine Amphetamine (NEGATIVE) U Benzodiazepine Level (NEGATIVE) Urine Cocaine (NEGATIVE) Urine Marijuana (THC) (NEGATIVE) Influenza Type A Ag (NEGATIVE) Influenza Type B Ag (NEGATIVE) RSV (PCR) (Negative) SARS-CoV-2 (PCR) (NEGATIVE) 01/14/21 01/14/21 01/14/21 Range/Units 12:43 12:43 12:43 WBC (4.0-10.5) K/mm3 RBC (4.1-5.4) M/mm3 Hgb (12.0-16.0) gm/dl Hct (35-47) % MCV (78-100) fl MCH (26-32) pg MCHC (32-36) g/dl RDW (11.5-14.0) % Plt Count (150-450) K/mm3 MPV (7.5-11.0) fl Gran % (36.0-66.0) % Eos # (Auto) (0-0.5) Absolute Lymphs (auto) (1.0-4.6) Absolute Monos (auto) (0.0-1.3) Lymphocytes % (24.0-44.0) % Monocytes % (0.0-12.0) % Eosinophils % (0.00-5.0) % Basophils % (0.0-0.4) % Absolute Granulocytes (1.4-6.9) Basophils # (0-0.4) Sodium 137 (137-145) mmol/L Potassium 3.7 (3.5-5.1) mmol/L Chloride 101 (98-107) mmol/L Carbon Dioxide 27 (22-30) mmol/L Anion Gap 11.3 (5-15) MEQ/L BUN 25 H (7-17) mg/dL Creatinine 0.92 (0.52-1.04) mg/dL Estimated GFR > 60.0 ML/MIN Glucose 97 (74-106) mg/dL Lactic Acid (0.4-2.0) Calcium 9.3 (8.4-10.2) mg/dL Total Bilirubin 0.60 (0.2-1.3) mg/dL AST 32 (14-36) U/L ALT 13 (0-35) U/L Alkaline Phosphatase 86 (38-126) U/L Troponin I 0.015 (0.000-0.034) ng/mL NT-Pro-B Natriuret Pep (0-1800) pg/mL Serum Total Protein 6.8 (6.3-8.2) g/dL Albumin 3.8 (3.5-5.0) g/dL Urine Color (YELLOW) Urine Appearance (CLEAR) Urine pH (5-6) Ur Specific Honeydew (1.005-1.025) Urine Protein (Negative) Urine Ketones (NEGATIVE) Urine Blood (0-5) Ld/ul Urine Nitrite (NEGATIVE) Urine Bilirubin (NEGATIVE) Urine Urobilinogen (0-1) mg/dL Ur Leukocyte Esterase (NEGATIVE) Urine WBC (Auto) (0-5) /HPF Urine RBC (Auto) (0-2) /HPF U Epithel Cells (Auto) (FEW) /HPF Urine Bacteria (Auto) (NEGATIVE) /HPF Urine Mucus (Auto) (NEGATIVE) /HPF Urine Culture Reflexed (NO) Urine Glucose (NEGATIVE) mg/dL Urine Opiates Level NEGATIVE (NEGATIVE) Ur Methadone NEGATIVE (NEGATIVE) Urine Barbiturates NEGATIVE (NEGATIVE) Ur Phencyclidine (PCP) NEGATIVE (NEGATIVE) Urine Amphetamine NEGATIVE (NEGATIVE) U Benzodiazepine Level NEGATIVE (NEGATIVE) Urine Cocaine NEGATIVE (NEGATIVE) Urine Marijuana (THC) NEGATIVE (NEGATIVE) Influenza Type A Ag (NEGATIVE) Influenza Type B Ag (NEGATIVE) RSV (PCR) (Negative) SARS-CoV-2 (PCR) (NEGATIVE) - Progress Progress Note: 01/14/21 13:[address] Schreiber Counseled pt/family regarding: lab results, diagnosis, rad results - Departure Departure Disposition: Observation Clinical Impression: UTI (urinary tract infection) Qualifiers: Urinary tract infection type: acute pyelonephritis Qualified Code(s): N10 - Acute pyelonephritis Condition: Stable Critical Care Time: No
[2021-01-14 13:19] LABS: ALBUMIN 3.8 g/dL (3.5-5.0); ALKALINE PHOSPHATASE 86 U/L (38-126); ANION GAP 11.3 MEQ/L (5-15); BLOOD UREA NITROGEN 25 mg/dL (7-17); CHLORIDE 101 mmol/L (98-107); Calcium 9.3 mg/dL (8.4-10.2); Carbon Dioxide 27 mmol/L (22-30); Creatinine 1 0.92 mg/dL (0.52-1.04); EST GLOMERULAR FILTRATION RATE > 60.0 ML/MIN; Glucose 97 mg/dL (74-106); Potassium 3.7 mmol/L (3.5-5.1); SGOT/AST 32 U/L (14-36); SGPT/ALT 13 U/L (0-35); SODIUM 137 mmol/L (137-145); Total Protein 6.8 g/dL (6.3-8.2)
--- NOTE | 2021-01-14 13:40 | XRAY ---
Exam: AP upright portable chest film from 01/14/2021. Comparison: Two-view chest from 11/02/2013. Indication: 80-year-old female with lethargy, confusion, weakness. Findings: The patient is mildly rotated toward the left. A couple EKG leads are seen. The heart size appears borderline enlarged, but there is some magnification on this AP portable technique. Atherosclerotic vascular calcification is seen within the aortic arch. The remainder of the yao and mediastinal structures appears unremarkable. A calcified granuloma is again seen at the left lung base. There is some accentuation of the peripheral interstitial markings within both midlung zones and at the lung bases. This appears new as compared to 11/02/2013. This may be due to to mild bilateral interstitial scarring/fibrosis, although some other acute or subacute interstitial etiology cannot be completely excluded. Correlate clinically. A superimposed dense air space infiltrate is not seen. No pneumothorax is seen. There is slight blunting of the left lateral costophrenic angle, likely due to pleural thickening. The bones are demineralized. Scoliosis is evident within the visualized thoracolumbar spine. Mild degenerative changes are seen within both shoulder girdles. Impression: 1. Compared to 11/02/2013, there appears to be less inflation of the lungs. In addition, there are new increased bilateral interstitial lung markings within the peripheral midlung zones and at both lung bases. This may be due to chronic interstitial scarring/fibrosis, although an acute interstitial etiology or infectious/inflammatory process is not excluded. Correlate clinically. A dense airspace infiltrate is not seen.
[2021-01-14 13:47] LABS: Amphetamine,Urine NEGATIVE (NEGATIVE); Barbiturate,Urine NEGATIVE (NEGATIVE); Benzodiazepine,Urine NEGATIVE (NEGATIVE); Cocaine,Urine NEGATIVE (NEGATIVE); Methadone,Urine NEGATIVE (NEGATIVE); Opiate,Urine NEGATIVE (NEGATIVE); PCP,Urine NEGATIVE (NEGATIVE); THC,Urine NEGATIVE (NEGATIVE)
[2021-01-14 15:21] LABS: INFLUENZA A NEGATIVE (NEGATIVE); INFLUENZA B NEGATIVE (NEGATIVE); RESPIRATORY SYNCTIAL VIRUS NEGATIVE (Negative)
[2021-01-14] MEDS ORDERED: Zofran 4 MG/2 ML VIAL IV PRN (15:22)
[2021-01-14] MEDS ORDERED: ROCEPHIN 1 Gm-D5w 50 ml Bag** 1 G/50 ML IVPB IV STA (15:25)
[2021-01-14] MEDS ORDERED: ROCEPHIN 1 Gm-D5w 50 ml Bag** 1 G/50 ML IVPB IV ONE (15:44)
[2021-01-14] MEDS: Sodium Chloride 0.9% 1000 ML 1,000 ML IV SCH (16:11)
[2021-01-14] MEDS: PROTONIX 40 MG IV IV SCH (16:12)
[2021-01-14] MEDS ORDERED: ACETAMINOPHEN PO PRN (17:25)
[2021-01-14] MEDS ORDERED: TYLENOL 325 MG PO PRN (17:25)
[2021-01-14] MEDS ORDERED: TRAMADOL HCL PO PRN (17:25)
[2021-01-14] MEDS ORDERED: TRANDOLAPRIL PO SCH (17:30)
[2021-01-14] MEDS ORDERED: VERAPAMIL HCL PO SCH (17:30)
[2021-01-14] MEDS ORDERED: MEDICATION INTERVENTION PO SCH (17:45)
[2021-01-14] MEDS: CLARITIN 10 MG PO SCH (18:37)
[2021-01-14] MEDS: Ditropan XL 5 MG PO SCH (18:37)
[2021-01-14] MEDS: FOLTX (FOLBIC) PO SCH (18:39)
[2021-01-14] MEDS: ULTRAM 50 MG PO PRN (18:54)
[2021-01-14] MEDS: TYLENOL 325 MG PO PRN (18:55)
--- NOTE | 2021-01-14 18:59 | PCM.HP ---
History of Present Illness - Chief Complaint Chief Complaint: weakness and confusion for 1 day History of Present Illness: is a 80 year old female.w advanced dementia presents w increasing lethargy/confusion x 2 wks. History obtained through palliative care coordinator. Cough/fever/N/V/D/focal weakness are all denied. She has become more incontinent of urine. DNR per palliative care coordinator. Timing/Duration: other (2wks) Modifying Factors: Improves With: nothing Associated Symptoms: loss of appetite, malaise, weakness, No nausea, No vomiting, No abdominal pain, No shortness of breath, No heartburn, No diaphoresis, No cough, No chills, No chest pain, No fever, No headaches, No rash, No syncope, No seizure - Review of Systems Constitutional: Lethargy, Weakness, No Fever, No Chills Eyes: No Symptoms Ears, Nose, & Throat: No Symptoms Respiratory: No Cough, No Short Of Breath Cardiac: No Chest Pain, No Edema, No Syncope Abdominal/Gastrointestinal: No Abdominal Pain, No Nausea, No Vomiting, No Diarrhea Genitourinary Symptoms: No Dysuria Musculoskeletal: No Back Pain, No Neck Pain Skin: No Rash Neurological: No Dizziness, No Focal Weakness, No Sensory Changes Psychological: No Symptoms Endocrine: No Symptoms Hematologic/Lymphatic: No Symptoms Immunological/Allergic: No Symptoms Medications & Allergies Home Medications: Home Medication List Amitriptyline HCl 50 mg PO HS 10/18/14 [History Confirmed 01/14/21] Memantine HCl [Namenda] 10 mg PO HS 10/18/14 [History Confirmed 01/14/21] Rosuvastatin Calcium [Crestor] 5 mg PO HS 10/18/14 [History Confirmed 01/14/21] Trandolapril/Verapamil HCl [Tarka ER 4-240 mg Tablet] 0.5 tab PO UD 10/18/14 [History Confirmed 01/14/21] Acetaminophen 325 mg [Tylenol 325 mg] 650 mg PO Q6HPRN PRN 06/12/20 [History Confirmed 01/14/21] Cyanocobalamin/Folic AC/Vit B6 [Folbic Tablet] 1 tab PO DAILY 01/14/21 [History Confirmed 01/14/21] Donepezil HCl 10 mg [Aricept 10 MG] 10 mg PO HS 01/14/21 [History Confirmed 01/14/21] Loratadine 10 mg [Claritin 10 mg] 10 mg PO DAILY 01/14/21 [History Confirmed 01/14/21] Melatonin 10 mg PO HS 01/14/21 [History Confirmed 01/14/21] Oxybutynin Chloride Xl 5 mg [Ditropan XL 5 MG] 5 mg PO DAILY 01/14/21 [History Confirmed 01/14/21] Tramadol HCl/Acetaminophen [Ultracet Tablet] 1 tab PO Q8HPRN PRN 01/14/21 [History Confirmed 01/14/21] Allergies/Adverse Reactions: Allergies Allergy/AdvReac Type Severity Reaction Status Date / Time No Known Drug Allergies Allergy Verified 08/18/20 13:09 - Past Medical History Past Medical History: Yes Neurological History: Dementia ENT History: No Pertinent History Cardiac History: High Cholesterol, Hypertension Respiratory History: No Pertinent History Endocrine Medical History: No Pertinent History Musculoskelatal History: Degenerative Disk Disease, Osteoarthritis, Osteoporosis GI Medical History: No Pertinent History History: No Pertinent History Pyscho-Social History: Depression Comment: pt is a poor historian- 01/14/21. R leg skin cancer/treated. - Female History Are you now?: No - Past Surgical History Past Surgical History: Yes Neuro Surgical History: No Pertinent History Cardiac History: No Pertinent History Respiratory Surgery: No Pertinent History GI Surgical History: No Pertinent History Genitourinary Surgical Hx: No Pertinent History Musculskeletal Surgical Hx: No Pertinent History Female Surgical History: No Pertinent History Other Surgical History: Hebert knee repair. FX R hip repair. - Social History Smoking Status: Former smoker How long have you smoked: years Exposure to second hand smoke: No Alcohol: None Drug Use: none Significant Family History: no pertinent family hx - Physical Exam Vital Signs: Vital Signs - 24 hr Temp Pulse Resp BP Pulse Ox 01/14/21 16:41 99.1 F 76 18 111/61 96 01/14/21 16:07 98.0 F 70 22 111/61 96 01/14/21 15:08 78 18 149/82 98 01/14/21 14:09 85 23 118/73 97 01/14/21 13:57 95 01/14/21 13:54 78 16 124/79 95 01/14/21 12:20 98.4 F 77 17 118/78 95 General Appearance: no apparent distress, alert Neurologic Exam: alert, cooperative, sensation nml, confusion, No motor deficits, No sensory deficit Eye Exam: PERRL/EOMI, eyes nml inspection Ears, Nose, Throat Exam: normal ENT inspection, TMs normal, pharynx normal, moist mucous membranes Neck Exam: normal inspection, non-tender, supple, full range of motion Respiratory Exam: normal breath sounds, lungs clear, No respiratory distress Cardiovascular Exam: regular rate/rhythm, normal heart sounds, normal peripheral pulses Gastrointestinal/Abdomen Exam: soft, normal bowel sounds, No tenderness, No mass Back Exam: normal inspection, normal range of motion, No CVA tenderness, No vertebral tenderness Extremity Exam: normal inspection, normal range of motion, pelvis stable Skin Exam: normal color, warm, dry, No rash Lymphatic Exam: No adenopathy Results - Labs Lab/Micro Results: Lab Results-Last 24 Hours 01/14/21 01/14/21 01/14/21 Range/Units 12:43 12:43 12:43 WBC (4.0-10.5) K/mm3 RBC (4.1-5.4) M/mm3 Hgb (12.0-16.0) gm/dl Hct (35-47) % MCV (78-100) fl MCH (26-32) pg MCHC (32-36) g/dl RDW (11.5-14.0) % Plt Count (150-450) K/mm3 MPV (7.5-11.0) fl Gran % (36.0-66.0) % Eos # (Auto) (0-0.5) Absolute Lymphs (auto) (1.0-4.6) Absolute Monos (auto) (0.0-1.3) Lymphocytes % (24.0-44.0) % Monocytes % (0.0-12.0) % Eosinophils % (0.00-5.0) % Basophils % (0.0-0.4) % Absolute Granulocytes (1.4-6.9) Basophils # (0-0.4) Sodium 137 (137-145) mmol/L Potassium 3.7 (3.5-5.1) mmol/L Chloride 101 (98-107) mmol/L Carbon Dioxide 27 (22-30) mmol/L Anion Gap 11.3 (5-15) MEQ/L BUN 25 H (7-17) mg/dL Creatinine 0.92 (0.52-1.04) mg/dL Estimated GFR > 60.0 ML/MIN Glucose 97 (74-106) mg/dL Lactic Acid (0.4-2.0) Calcium 9.3 (8.4-10.2) mg/dL Total Bilirubin 0.60 (0.2-1.3) mg/dL AST 32 (14-36) U/L ALT 13 (0-35) U/L Alkaline Phosphatase 86 (38-126) U/L Troponin I 0.015 (0.000-0.034) ng/mL NT-Pro-B Natriuret Pep (0-1800) pg/mL Serum Total Protein 6.8 (6.3-8.2) g/dL Albumin 3.8 (3.5-5.0) g/dL Urine Color (YELLOW) Urine Appearance (CLEAR) Urine pH (5-6) Ur Specific Red Bud (1.005-1.025) Urine Protein (Negative) Urine Ketones (NEGATIVE) Urine Blood (0-5) Ld/ul Urine Nitrite (NEGATIVE) Urine Bilirubin (NEGATIVE) Urine Urobilinogen (0-1) mg/dL Ur Leukocyte Esterase (NEGATIVE) Urine WBC (Auto) (0-5) /HPF Urine RBC (Auto) (0-2) /HPF U Epithel Cells (Auto) (FEW) /HPF Urine Bacteria (Auto) (NEGATIVE) /HPF Urine Mucus (Auto) (NEGATIVE) /HPF Urine Culture Reflexed (NO) Urine Glucose (NEGATIVE) mg/dL Urine Opiates Level NEGATIVE (NEGATIVE) Ur Methadone NEGATIVE (NEGATIVE) Urine Barbiturates NEGATIVE (NEGATIVE) Ur Phencyclidine (PCP) NEGATIVE (NEGATIVE) Urine Amphetamine NEGATIVE (NEGATIVE) U Benzodiazepine Level NEGATIVE (NEGATIVE) Urine Cocaine NEGATIVE (NEGATIVE) Urine Marijuana (THC) NEGATIVE (NEGATIVE) Influenza Type A Ag (NEGATIVE) Influenza Type B Ag (NEGATIVE) RSV (PCR) (Negative) SARS-CoV-2 (PCR) (NEGATIVE) 01/14/21 01/14/21 01/14/21 Range/Units 12:43 12:43 12:45 WBC 8.0 (4.0-10.5) K/mm3 RBC 3.45 L (4.1-5.4) M/mm3 Hgb 10.0 L (12.0-16.0) gm/dl Hct 31.5 L (35-47) % MCV 91.3 (78-100) fl MCH 29.0 (26-32) pg MCHC 31.7 L (32-36) g/dl RDW 14.7 H (11.5-14.0) % Plt Count 217 (150-450) K/mm3 MPV 9.5 (7.5-11.0) fl Gran % 75.3 H (36.0-66.0) % Eos # (Auto) 0.03 (0-0.5) Absolute Lymphs (auto) 1.42 (1.0-4.6) Absolute Monos (auto) 0.51 (0.0-1.3) Lymphocytes % 17.8 L (24.0-44.0) % Monocytes % 6.4 (0.0-12.0) % Eosinophils % 0.4 (0.00-5.0) % Basophils % 0.1 (0.0-0.4) % Absolute Granulocytes 6.00 (1.4-6.9) Basophils # 0.01 (0-0.4) Sodium (137-145) mmol/L Potassium (3.5-5.1) mmol/L Chloride (98-107) mmol/L Carbon Dioxide (22-30) mmol/L Anion Gap (5-15) MEQ/L BUN (7-17) mg/dL Creatinine (0.52-1.04) mg/dL Estimated GFR ML/MIN Glucose (74-106) mg/dL Lactic Acid 0.9 (0.4-2.0) Calcium (8.4-10.2) mg/dL Total Bilirubin (0.2-1.3) mg/dL AST (14-36) U/L ALT (0-35) U/L Alkaline Phosphatase (38-126) U/L Troponin I (0.000-0.034) ng/mL NT-Pro-B Natriuret Pep (0-1800) pg/mL Serum Total Protein (6.3-8.2) g/dL Albumin (3.5-5.0) g/dL Urine Color MARCELA (YELLOW) Urine Appearance CLOUDY (CLEAR) Urine pH 5.0 (5-6) Ur Specific Red Bud 1.021 (1.005-1.025) Urine Protein 30 (Negative) Urine Ketones SMALL (NEGATIVE) Urine Blood SMALL (0-5) Ld/ul Urine Nitrite POSITIVE (NEGATIVE) Urine Bilirubin NEGATIVE (NEGATIVE) Urine Urobilinogen 2 (0-1) mg/dL Ur Leukocyte Esterase SMALL (NEGATIVE) Urine WBC (Auto) 51-100 (0-5) /HPF Urine RBC (Auto) 0-2 (0-2) /HPF U Epithel Cells (Auto) NONE (FEW) /HPF Urine Bacteria (Auto) MANY (NEGATIVE) /HPF Urine Mucus (Auto) SLIGHT (NEGATIVE) /HPF Urine Culture Reflexed YES (NO) Urine Glucose NEGATIVE (NEGATIVE) mg/dL Urine Opiates Level (NEGATIVE) Ur Methadone (NEGATIVE) Urine Barbiturates (NEGATIVE) Ur Phencyclidine (PCP) (NEGATIVE) Urine Amphetamine (NEGATIVE) U Benzodiazepine Level (NEGATIVE) Urine Cocaine (NEGATIVE) Urine Marijuana (THC) (NEGATIVE) Influenza Type A Ag (NEGATIVE) Influenza Type B Ag (NEGATIVE) RSV (PCR) (Negative) SARS-CoV-2 (PCR) (NEGATIVE) 01/14/21 01/14/21 01/14/21 Range/Units 13:59 14:33 15:40 WBC (4.0-10.5) K/mm3 RBC (4.1-5.4) M/mm3 Hgb (12.0-16.0) gm/dl Hct (35-47) % MCV (78-100) fl MCH (26-32) pg MCHC (32-36) g/dl RDW (11.5-14.0) % Plt Count (150-450) K/mm3 MPV (7.5-11.0) fl Gran % (36.0-66.0) % Eos # (Auto) (0-0.5) Absolute Lymphs (auto) (1.0-4.6) Absolute Monos (auto) (0.0-1.3) Lymphocytes % (24.0-44.0) % Monocytes % (0.0-12.0) % Eosinophils % (0.00-5.0) % Basophils % (0.0-0.4) % Absolute Granulocytes (1.4-6.9) Basophils # (0-0.4) Sodium (137-145) mmol/L Potassium (3.5-5.1) mmol/L Chloride (98-107) mmol/L Carbon Dioxide (22-30) mmol/L Anion Gap (5-15) MEQ/L BUN (7-17) mg/dL Creatinine (0.52-1.04) mg/dL Estimated GFR ML/MIN Glucose (74-106) mg/dL Lactic Acid (0.4-2.0) Calcium (8.4-10.2) mg/dL Total Bilirubin (0.2-1.3) mg/dL AST (14-36) U/L ALT (0-35) U/L Alkaline Phosphatase (38-126) U/L Troponin I 0.020 (0.000-0.034) ng/mL NT-Pro-B Natriuret Pep 687 (0-1800) pg/mL Serum Total Protein (6.3-8.2) g/dL Albumin (3.5-5.0) g/dL Urine Color (YELLOW) Urine Appearance (CLEAR) Urine pH (5-6) Ur Specific Red Bud (1.005-1.025) Urine Protein (Negative) Urine Ketones (NEGATIVE) Urine Blood (0-5) Ld/ul Urine Nitrite (NEGATIVE) Urine Bilirubin (NEGATIVE) Urine Urobilinogen (0-1) mg/dL Ur Leukocyte Esterase (NEGATIVE) Urine WBC (Auto) (0-5) /HPF Urine RBC (Auto) (0-2) /HPF U Epithel Cells (Auto) (FEW) /HPF Urine Bacteria (Auto) (NEGATIVE) /HPF Urine Mucus (Auto) (NEGATIVE) /HPF Urine Culture Reflexed (NO) Urine Glucose (NEGATIVE) mg/dL Urine Opiates Level (NEGATIVE) Ur Methadone (NEGATIVE) Urine Barbiturates (NEGATIVE) Ur Phencyclidine (PCP) (NEGATIVE) Urine Amphetamine (NEGATIVE) U Benzodiazepine Level (NEGATIVE) Urine Cocaine (NEGATIVE) Urine Marijuana (THC) (NEGATIVE) Influenza Type A Ag NEGATIVE (NEGATIVE) Influenza Type B Ag NEGATIVE (NEGATIVE) RSV (PCR) NEGATIVE (Negative) SARS-CoV-2 (PCR) NEGATIVE (NEGATIVE) - Radiology Impressions Radiology Exams & Impressions: Radiology Procedures Category Date Time Status CHEST 1 VIEW (PORTABLE) Stat Exams 01/14/21 12:25 Completed RAD/CHEST 1 VIEW (PORTABLE) Exam: AP upright portable chest film from 01/14/2021. Comparison: Two-view chest from 11/02/2013. Indication: 80-year-old female with lethargy, confusion, weakness. Findings: The patient is mildly rotated toward the left. A couple EKG leads are seen. The heart size appears borderline enlarged, but there is some magnification on this AP portable technique. Atherosclerotic vascular calcification is seen within the aortic arch. The remainder of the yao and mediastinal structures appears unremarkable. A calcified granuloma is again seen at the left lung base. There is some accentuation of the peripheral interstitial markings within both midlung zones and at the lung bases. This appears new as compared to 11/02/2013. This may be due to to mild bilateral interstitial scarring/fibrosis, although some other acute or subacute interstitial etiology cannot be completely excluded. Correlate clinically. A superimposed dense air space infiltrate is not seen. No pneumothorax is seen. There is slight blunting of the left lateral costophrenic angle, likely due to pleural thickening. The bones are demineralized. Scoliosis is evident within the visualized thoracolumbar spine. Mild degenerative changes are seen within both shoulder girdles. Impression: 1. Compared to 11/02/2013, there appears to be less inflation of the lungs. In addition, there are new increased bilateral interstitial lung markings within the peripheral midlung zones and at both lung bases. This may be due to chronic interstitial scarring/fibrosis, although an acute interstitial etiology or infectious/inflammatory process is not excluded. Correlate clinically. A dense airspace infiltrate is not seen. Assessment/Plan (1) UTI (urinary tract infection) Current Visit: Yes Status: Acute Qualifiers: Urinary tract infection type: acute pyelonephritis Qualified Code(s): N10 - Acute pyelonephritis Assessment & Plan: Chief Complaint Diagnosis UTI Allergies Allergy/AdvReac Type Severity Reaction Status Date / Time No Known Drug Allergies Allergy Verified 08/18/20 13:09 Vital Signs (Last 24 hours) Temp Pulse Resp BP Pulse Ox 01/14/21 16:41 99.1 F 76 18 111/61 96 01/14/21 16:07 98.0 F 70 22 111/61 96 01/14/21 15:08 78 18 149/82 98 01/14/21 14:09 85 23 118/73 97 01/14/21 13:57 95 01/14/21 13:54 78 16 124/79 95 01/14/21 12:20 98.4 F 77 17 118/78 95 Home Medications Medication Instructions Recorded Confirmed Last Taken Type Cyanocobalamin/Folic AC/Vit B6 1 tab PO DAILY 01/14/21 01/14/21 01/13/21 History [Folbic Tablet] Donepezil HCl 10 mg [Aricept 10 10 mg PO HS 01/14/21 01/14/21 01/13/21 History MG] Loratadine 10 mg [Claritin 10 10 mg PO DAILY 01/14/21 01/14/21 01/13/21 History mg] Melatonin 5 mg PO HS 01/14/21 01/14/21 01/13/21 History Oxybutynin Chloride Xl 5 mg 5 mg PO DAILY 01/14/21 01/14/21 01/12/21 History [Ditropan XL 5 MG] Tramadol HCl/Acetaminophen 1 tab PO Q8HPRN PRN 01/14/21 01/14/21 Unknown History [Ultracet Tablet] Current Medications Generic Name Dose Route Start Last Admin Trade Name Freq PRN Reason Stop Dose Admin Acetaminophen 650 mg 01/14/21 17:25 Tylenol 325 Mg PO 02/13/21 17:24 Q6HPRN PRN PAIN Acetaminophen 325 mg 01/14/21 17:33 01/14/21 18:55 Tylenol 325 Mg PO 02/13/21 17:32 325 mg Q8H/PRN PRN Administration PAIN Amitriptyline HCl 50 mg 01/14/21 22:00 Amitriptyline Hcl 50 Mg Tablet PO 02/13/21 21:59 HS ÓSCAR Donepezil HCl 10 mg 01/14/21 22:00 Aricept 10 Mg PO 02/13/21 21:59 HS ÓSCAR Folic Acid 1 tab 01/14/21 18:00 01/14/21 18:39 Foltx (Folbic) PO 02/13/21 17:59 1 tab DAILY ÓSCAR Administration Sodium Chloride 1,000 mls @ 100 mls/hr 01/14/21 15:15 01/14/21 16:11 Sodium Chloride 0.9% 1000 Ml IV 02/13/21 15:14 100 mls/hr .Q10H ÓSCAR Administration Ceftriaxone Sodium/Dextrose 1 g in 50 mls @ 100 mls/hr 01/15/21 10:00 Rocephin 1 Gm-D5w 50 Ml Bag IV 01/18/21 09:59 Q24H10 ÓSCAR Loratadine 10 mg 01/14/21 18:00 01/14/21 18:37 Claritin 10 Mg PO 02/13/21 17:59 10 mg DAILY ÓSCAR Administration Memantine 10 mg 01/14/21 22:00 Namenda 5 Mg PO 02/13/21 21:59 HS [facility] Miscellaneous Information 1 each 01/14/21 17:45 Medication Intervention PO 02/13/21 17:44 .RN TO CHECK ON ÓSCAR Ondansetron HCl 4 mg 01/14/21 15:22 Zofran 4 Mg/2 Ml Vial IV 02/13/21 15:21 Q6H PRN PRN NAUSEA/VOMITING Oxybutynin Chloride 5 mg 01/14/21 18:00 01/14/21 18:37 Ditropan Xl 5 Mg PO 02/13/21 17:59 5 mg DAILY ÓSCAR Administration Pantoprazole Sodium 40 mg 01/14/21 17:00 01/14/21 16:12 Protonix 40 Mg Iv IV 02/13/21 16:59 40 mg Q24H10 ÓSCAR Administration Simvastatin 10 mg 01/14/21 22:00 Zocor 10mg PO 02/13/21 21:59 HS [facility] Tramadol HCl 50 mg 01/14/21 17:32 01/14/21 18:54 Ultram 50 Mg PO 02/13/21 17:31 50 mg Q8H/PRN PRN Administration PAIN Trandolapril 2 mg 01/15/21 10:00 Mavik 2 Mg PO 02/14/21 09:59 QOD ÓSCAR Verapamil HCl 120 mg 01/15/21 10:00 Isoptin S.R. 240 Mg PO 02/14/21 09:59 QOD ÓSCAR Discontinued Medications Generic Name Dose Route Start Last Admin Trade Name Freq PRN Reason Stop Dose Admin Ceftriaxone Sodium/Dextrose 1 g in 50 mls @ 100 mls/hr 01/14/21 15:25 01/14/21 15:46 Rocephin 1 Gm-D5w 50 Ml Bag IV 01/14/21 15:54 100 mls/hr STAT STA 100 mls/hr Administration Ceftriaxone Sodium/Dextrose Confirm 01/14/21 15:44 Rocephin 1 Gm-D5w 50 Ml Bag Administered 01/14/21 15:45 Dose 1 g in 50 mls @ ud IV .STK-MED ONE Intake & Output (Last 24 hours) 01/12/21 01/13/21 01/14/21 01/15/21 11:59 11:59 11:59 11:59 Intake Total 120 Balance 120 Weight 76 kg Microbiology Results (Last 24 hours) 01/14/21 15:40 Blood Blood Culture Gram Stain - Pending 01/14/21 15:40 Blood Blood Culture - Pending 01/14/21 12:45 Blood Blood Culture Gram Stain - Pending 01/14/21 12:45 Blood Blood Culture - Pending 01/14/21 12:43 Catherized Urine Culture - Pending Laboratory Results (Last 24 hours) 01/14/21 01/14/21 01/14/21 15:40 14:33 13:59 WBC RBC Hgb Hct MCV MCH MCHC RDW Plt Count MPV Gran % Eos # (Auto) Absolute Lymphs (auto) Absolute Monos (auto) Lymphocytes % Monocytes % Eosinophils % Basophils % Absolute Granulocytes Basophils # Sodium Potassium Chloride Carbon Dioxide Anion Gap BUN Creatinine Estimated GFR Glucose Lactic Acid Calcium Total Bilirubin AST ALT Alkaline Phosphatase Troponin I 0.020 NT-Pro-B Natriuret Pep 687 Serum Total Protein Albumin Urine Color Urine Appearance Urine pH Ur Specific Red Bud Urine Protein Urine Ketones Urine Blood Urine Nitrite Urine Bilirubin Urine Urobilinogen Ur Leukocyte Esterase Urine WBC (Auto) Urine RBC (Auto) U Epithel Cells (Auto) Urine Bacteria (Auto) Urine Mucus (Auto) Urine Culture Reflexed Urine Glucose Urine Opiates Level Ur Methadone Urine Barbiturates Ur Phencyclidine (PCP) Urine Amphetamine U Benzodiazepine Level Urine Cocaine Urine Marijuana (THC) Influenza Type A Ag NEGATIVE Influenza Type B Ag NEGATIVE RSV (PCR) NEGATIVE SARS-CoV-2 (PCR) NEGATIVE 01/14/21 01/14/21 01/14/21 12:45 12:43 12:43 WBC 8.0 RBC 3.45 L Hgb 10.0 L Hct 31.5 L MCV 91.3 MCH 29.0 MCHC 31.7 L RDW 14.7 H Plt Count 217 MPV 9.5 Gran % 75.3 H Eos # (Auto) 0.03 Absolute Lymphs (auto) 1.42 Absolute Monos (auto) 0.51 Lymphocytes % 17.8 L Monocytes % 6.4 Eosinophils % 0.4 Basophils % 0.1 Absolute Granulocytes 6.00 Basophils # 0.01 Sodium Potassium Chloride Carbon Dioxide Anion Gap BUN Creatinine Estimated GFR Glucose Lactic Acid 0.9 Calcium Total Bilirubin AST ALT Alkaline Phosphatase Troponin I NT-Pro-B Natriuret Pep Serum Total Protein Albumin Urine Color MARCELA Urine Appearance CLOUDY Urine pH 5.0 Ur Specific Red Bud 1.021 Urine Protein 30 Urine Ketones SMALL Urine Blood SMALL Urine Nitrite POSITIVE Urine Bilirubin NEGATIVE Urine Urobilinogen 2 Ur Leukocyte Esterase SMALL Urine WBC (Auto) 51-100 Urine RBC (Auto) 0-2 U Epithel Cells (Auto) NONE Urine Bacteria (Auto) MANY Urine Mucus (Auto) SLIGHT Urine Culture Reflexed YES Urine Glucose NEGATIVE Urine Opiates Level Ur Methadone Urine Barbiturates Ur Phencyclidine (PCP) Urine Amphetamine U Benzodiazepine Level Urine Cocaine Urine Marijuana (THC) Influenza Type A Ag Influenza Type B Ag RSV (PCR) SARS-CoV-2 (PCR) 01/14/21 01/14/21 01/14/21 12:43 12:43 12:43 WBC RBC Hgb Hct MCV MCH MCHC RDW Plt Count MPV Gran % Eos # (Auto) Absolute Lymphs (auto) Absolute Monos (auto) Lymphocytes % Monocytes % Eosinophils % Basophils % Absolute Granulocytes Basophils # Sodium 137 Potassium 3.7 Chloride 101 Carbon Dioxide 27 Anion Gap 11.3 BUN 25 H Creatinine 0.92 Estimated GFR > 60.0 Glucose 97 Lactic Acid Calcium 9.3 Total Bilirubin 0.60 AST 32 ALT 13 Alkaline Phosphatase 86 Troponin I 0.015 NT-Pro-B Natriuret Pep Serum Total Protein 6.8 Albumin 3.8 Urine Color Urine Appearance Urine pH Ur Specific Red Bud Urine Protein Urine Ketones Urine Blood Urine Nitrite Urine Bilirubin Urine Urobilinogen Ur Leukocyte Esterase Urine WBC (Auto) Urine RBC (Auto) U Epithel Cells (Auto) Urine Bacteria (Auto) Urine Mucus (Auto) Urine Culture Reflexed Urine Glucose Urine Opiates Level NEGATIVE Ur Methadone NEGATIVE Urine Barbiturates NEGATIVE Ur Phencyclidine (PCP) NEGATIVE Urine Amphetamine NEGATIVE U Benzodiazepine Level NEGATIVE Urine Cocaine NEGATIVE Urine Marijuana (THC) NEGATIVE Influenza Type A Ag Influenza Type B Ag RSV (PCR) SARS-CoV-2 (PCR) Orders (Last 24 hours) Category Date Time Status Bedrest ROUTINE Activity 01/14/21 15:19 Active Code Status Order ROUTINE Care 01/14/21 15:23 Active EKG-ER Only STAT Care 01/14/21 12:25 Completed IV Insertion STAT Care 01/14/21 12:25 Completed Intake and Output Q12H Care 01/14/21 15:[address] in Observation ROUTINE Care 01/14/21 15:14 Active Vital Signs Q4H Care 01/14/21 15:14 Active Gambling Cashier/Discharge Plan ROUTINE Cons 01/14/21 17:38 Active Heart-Healthy Diet Diet 01/14/21 Dinner Active Nutritional Admission Screen ONCE Diet 01/14/21 17:38 Active CHEST 1 VIEW (PORTABLE) Stat Exams 01/14/21 12:25 Completed BLOOD CULTURE Stat Lab 01/14/21 15:40 Received CBC W DIFF AM.LAB Lab 01/15/21 04:00 Ordered CBC W DIFF Stat Lab 01/14/21 12:45 Completed CMP AM.LAB Lab 01/15/21 04:00 Ordered CMP Stat Lab 01/14/21 12:43 Completed CULTURE,URINE Stat Lab 01/14/21 12:43 Received Lactic Acid Stat Lab 01/14/21 12:43 Completed NT PRO BNP Stat Lab 01/14/21 13:59 Completed TROPONIN Q3H Lab 01/14/21 12:43 Completed TROPONIN Q3H Lab 01/14/21 15:40 Completed TROPONIN Q3H Lab 01/14/21 18:50 Received TROPONIN Q3H Lab 01/14/21 21:30 Ordered TROPONIN Q3H Lab 01/15/21 00:30 Ordered UA W/RFX UR CULTURE Stat Lab 01/14/21 12:43 Completed Urine Triage Profile Stat Lab 01/14/21 12:43 Completed AMITRIPTYLINE HCL 50 mg Tab [AMITRIPTYLINE HCL 50 mg Med 01/14/21 22:00 Active Tablet] 50 mg PO HS Acetaminophen 325 mg [Tylenol 325 mg] Med 01/14/21 17:33 Active 325 mg PO Q8H/PRN PRN Acetaminophen 325 mg [Tylenol 325 mg] Med 01/14/21 17:25 Active 650 mg PO Q6HPRN PRN Ceftriaxone 1 GM/50 ML PREMIX* [ROCEPHIN 1 Gm-D5w 50 ml Med 01/15/21 10:00 Active Bag] 1 g in 50 ml IV Q24H10 Ceftriaxone 1 GM/50 ML PREMIX* [ROCEPHIN 1 Gm-D5w 50 ml Med 01/14/21 15:25 Discontinued Bag] 1 g in 50 ml IV STAT Ceftriaxone 1 GM/50 ML PREMIX* [ROCEPHIN 1 Gm-D5w 50 ml Med 01/14/21 15:44 Discontinued Bag] 1 g in 50 ml IV UD Donepezil HCl 10 mg [Aricept 10 MG] Med 01/14/21 22:00 Active 10 mg PO HS Folic Acid/Vitamin B Comp W-C* [Foltx (Folbic)] Med 01/14/21 18:00 Active 1 tab PO DAILY Loratadine 10 mg [Claritin 10 mg] Med 01/14/21 18:00 Active 10 mg PO DAILY Medication Intervention Med 01/14/21 17:45 Active 1 each PO .RN TO CHECK ON Memantine HCl 5 mg [Namenda 5 MG] Med 01/14/21 22:00 Active 10 mg PO HS NaCl 0.9% 1000 ml [Sodium Chloride 0.9% 1000 ML] 1,000 Med 01/14/21 15:15 Active ml IV 100 mls/hr Ondansetron HCl 4 mg/2 ml [Zofran 4 MG/2 ML VIAL] Med 01/14/21 15:22 Active 4 mg IV Q6H PRN PRN Oxybutynin Chloride Xl 5 mg [Ditropan XL 5 MG] Med 01/14/21 18:00 Active 5 mg PO DAILY Pantoprazole 40 mg [Protonix 40 mg IV] Med 01/14/21 17:00 Active 40 mg IV Q24H10 Simvastatin 10 mg [Zocor 10MG] Med 01/14/21 22:00 Active 10 mg PO HS Tramadol HCl 50 mg [Ultram 50 mg] Med 01/14/21 17:32 Active 50 mg PO Q8H/PRN PRN Trandolapril 2 mg [Mavik 2 MG] Med 01/15/21 10:00 Active 2 mg PO QOD Verapamil HCl Sr 240 mg [Isoptin S.r. 240 mg] Med 01/15/21 10:00 Active 120 mg PO QOD OT Screen per Nursing Assess ONCE OT 01/14/21 17:38 Active PT Screen per Nursing Assess ONCE PT 01/14/21 17:38 Active Speech Therapy Eval & Treat [ST Eval & Treat (MD Order) ST 01/14/21 17:09 Active ] .as ordered Transfer Order Routine Transfer 01/14/21 Completed Code(s): N39.0 - URINARY TRACT INFECTION, SITE NOT SPECIFIED (2) Confusion with non-focal neuro exam Current Visit: Yes Status: Acute Code(s): R41.0 - DISORIENTATION, UNSPECIFIED
[2021-01-14] MEDS: Aricept 10 MG PO SCH (21:07)
[2021-01-14] MEDS: Namenda 5 MG PO SCH (21:07)
[2021-01-14] MEDS: Zocor 10MG PO SCH (21:07)
[2021-01-14] MEDS ORDERED: NON-FORMULARY ITEM (Rosuvastatin Calcium [Crestor] 5 MG) PO SCH (22:00)
[2021-01-14] MEDS ORDERED: NON-FORMULARY ITEM (Memantine Hcl [Namenda] 10 MG) PO SCH (22:00)
[2021-01-14] MEDS ORDERED: NON-FORMULARY ITEM (Melatonin [Melatonin] 5 MG) PO SCH (22:00)
[2021-01-15] MEDS: Sodium Chloride 0.9% 1000 ML 1,000 ML IV SCH (02:30)
[2021-01-15] MEDS ORDERED: Colace 100 MG PO PRN (04:31)
[2021-01-15 05:39] LABS: Absolute Neutrophil Ct (ANC) 3.85 (1.4-6.9); BASOPHIL % 0.5 % (0.0-0.4); Basophil (Absolute #) 0.03 (0-0.4); Eosinophil % 3.7 % (0.00-5.0); Eosinophil (Absolute #) 0.22 (0-0.5); Hematocrit 31.4 % (35-47); Hemoglobin 9.9 gm/dl (12.0-16.0); Lymphocyte (Absolute #) 1.44 (1.0-4.6); Mean Cell Volume 92.1 fl (78-100); Mean Corpuscular Hgb Concent. 31.5 g/dl (32-36); Mean Platelet Volume 9.7 fl (7.5-11.0); Monocyte (Absolute #) 0.47 (0.0-1.3); Monocytes % 7.8 % (0.0-12.0); Platelet Count 225 K/mm3 (150-450); Red Blood Count 3.41 M/mm3 (4.1-5.4); Red Cell Distribution Width 14.6 % (11.5-14.0)
[2021-01-15 06:00] LABS: ALBUMIN 3.9 g/dL (3.5-5.0); ALKALINE PHOSPHATASE 82 U/L (38-126); BLOOD UREA NITROGEN 20 mg/dL (7-17); CHLORIDE 105 mmol/L (98-107); Calcium 9.2 mg/dL (8.4-10.2); Carbon Dioxide 25 mmol/L (22-30); Creatinine 1 0.82 mg/dL (0.52-1.04); EST GLOMERULAR FILTRATION RATE > 60.0 ML/MIN; Glucose 93 mg/dL (74-106); SGOT/AST 36 U/L (14-36); SGPT/ALT 16 U/L (0-35); SODIUM 136 mmol/L (137-145); Total Protein 7.1 g/dL (6.3-8.2)
[2021-01-15 06:02] LABS: Potassium 3.8 mmol/L (3.5-5.1)
[2021-01-15 06:17] LABS: ANION GAP 9.8 MEQ/L (5-15)
[2021-01-15] MEDS: Ditropan XL 5 MG PO SCH (09:27)
[2021-01-15] MEDS: Mavik 2 MG PO SCH (09:29)
[2021-01-15] MEDS: ISOPTIN S.R. 240 MG PO SCH (09:29)
[2021-01-15] MEDS: ROCEPHIN 1 Gm-D5w 50 ml Bag** 1 G/50 ML IVPB IV SCH (09:30)
[2021-01-15] MEDS: FOLTX (FOLBIC) PO SCH (09:30)
[2021-01-15] MEDS: PROTONIX 40 MG IV IV SCH (09:30)
[2021-01-15] MEDS: CLARITIN 10 MG PO SCH (09:30)
[2021-01-15] MEDS: ULTRAM 50 MG PO PRN (09:31)
[2021-01-15] MEDS: TYLENOL 325 MG PO PRN ×2 (09:32→20:05)
[2021-01-15] MEDS ORDERED: Colace 100 MG PO SCH (10:00)
[2021-01-15] MEDS: Namenda 5 MG PO SCH (20:03)
[2021-01-15] MEDS: Aricept 10 MG PO SCH (20:03)
[2021-01-15] MEDS: PATIENT OWN MEDICATION PO SCH (20:04)
[2021-01-15] MEDS: Zocor 10MG PO SCH (20:04)
--- NOTE | 2021-01-15 20:38 | PCM.NOTE ---
Date and Time: 01/15/212036 Subjective Assessment: still confused. no fever - Review of Systems Constitutional: No Fever, No Chills Eyes: No Symptoms Ears, Nose, & Throat: No Symptoms Respiratory: No Cough, No Short Of Breath Cardiac: No Chest Pain, No Edema, No Syncope Abdominal/Gastrointestinal: No Abdominal Pain, No Nausea, No Vomiting, No Diarrhea Genitourinary Symptoms: No Dysuria Musculoskeletal: No Back Pain, No Neck Pain Skin: No Rash Neurological: Lethargy, No Dizziness, No Focal Weakness, No Sensory Changes Psychological: No Symptoms Endocrine: No Symptoms Hematologic/Lymphatic: No Symptoms Immunological/Allergic: No Symptoms Objective Exam General Appearance: no apparent distress, alert Neurologic Exam: alert, oriented x 3, cooperative, normal mood/affect, nml cerebellar function, sensation nml, No motor deficits Skin Exam: normal color, warm, dry Eye Exam: PERRL, EOMI, eyes nml inspection Ears, Nose, Throat Exam: normal ENT inspection, pharynx normal, moist mucous membranes Neck Exam: normal inspection, non-tender, supple, full range of motion Respiratory Exam: normal breath sounds, lungs clear, No respiratory distress Cardiovascular Exam: regular rate/rhythm, normal heart sounds Gastrointestinal/Abdomen Exam: soft, No tenderness, No mass Extremity Exam: normal inspection, normal range of motion Back Exam: normal inspection, normal range of motion, No CVA tenderness, No vertebral tenderness Pelvic Exam: deferred Rectal Exam: deferred OBJECTIVE DATA Vital Signs: Vital Signs - 24 hr Temp Pulse Resp BP Pulse Ox 01/15/21 20:00 98.3 F 73 18 124/56 94 L 01/15/21 15:59 97.9 F 65 16 101/58 95 01/15/21 12:00 97.9 F 79 16 118/59 95 01/15/21 07:36 98.5 F 73 16 131/67 92 L 01/15/21 04:00 98 F 77 18 120/56 91 L 01/15/21 01:08 95 Pain Assessment - Last Documented Pain Intensity 0 Pain Scale Used [facility] Intake and Output: Intake & Output 01/13/21 01/14/21 01/15/21 01/16/21 11:59 11:59 11:59 11:59 Intake Total 1536 1083 Output Total 700 300 Balance 836 783 Weight 76 kg 76 kg Lab Results: Lab Results-Last 24 Hours 01/14/21 01/15/21 01/15/21 Range/Units 21:52 05:25 05:25 WBC 6.0 (4.0-10.5) K/mm3 RBC 3.41 L (4.1-5.4) M/mm3 Hgb 9.9 L (12.0-16.0) gm/dl Hct 31.4 L (35-47) % MCV 92.1 (78-100) fl MCH 29.0 (26-32) pg MCHC 31.5 L (32-36) g/dl RDW 14.6 H (11.5-14.0) % Plt Count 225 (150-450) K/mm3 MPV 9.7 (7.5-11.0) fl Gran % 64.0 (36.0-66.0) % Eos # (Auto) 0.22 (0-0.5) Absolute Lymphs (auto) 1.44 (1.0-4.6) Absolute Monos (auto) 0.47 (0.0-1.3) Lymphocytes % 24.0 (24.0-44.0) % Monocytes % 7.8 (0.0-12.0) % Eosinophils % 3.7 (0.00-5.0) % Basophils % 0.5 (0.0-0.4) % Absolute Granulocytes 3.85 (1.4-6.9) Basophils # 0.03 (0-0.4) Sodium (137-145) mmol/L Potassium (3.5-5.1) mmol/L Chloride (98-107) mmol/L Carbon Dioxide (22-30) mmol/L Anion Gap (5-15) MEQ/L BUN (7-17) mg/dL Creatinine (0.52-1.04) mg/dL Estimated GFR ML/MIN Glucose (74-106) mg/dL Calcium (8.4-10.2) mg/dL Total Bilirubin (0.2-1.3) mg/dL AST (14-36) U/L ALT (0-35) U/L Alkaline Phosphatase (38-126) U/L Troponin I 0.015 < 0.012 (0.000-0.034) ng/mL Serum Total Protein (6.3-8.2) g/dL Albumin (3.5-5.0) g/dL 01/15/21 Range/Units 05:25 WBC (4.0-10.5) K/mm3 RBC (4.1-5.4) M/mm3 Hgb (12.0-16.0) gm/dl Hct (35-47) % MCV (78-100) fl MCH (26-32) pg MCHC (32-36) g/dl RDW (11.5-14.0) % Plt Count (150-450) K/mm3 MPV (7.5-11.0) fl Gran % (36.0-66.0) % Eos # (Auto) (0-0.5) Absolute Lymphs (auto) (1.0-4.6) Absolute Monos (auto) (0.0-1.3) Lymphocytes % (24.0-44.0) % Monocytes % (0.0-12.0) % Eosinophils % (0.00-5.0) % Basophils % (0.0-0.4) % Absolute Granulocytes (1.4-6.9) Basophils # (0-0.4) Sodium 136 L (137-145) mmol/L Potassium 3.8 (3.5-5.1) mmol/L Chloride 105 (98-107) mmol/L Carbon Dioxide 25 (22-30) mmol/L Anion Gap 9.8 (5-15) MEQ/L BUN 20 H (7-17) mg/dL Creatinine 0.82 (0.52-1.04) mg/dL Estimated GFR > 60.0 ML/MIN Glucose 93 (74-106) mg/dL Calcium 9.2 (8.4-10.2) mg/dL Total Bilirubin 0.40 (0.2-1.3) mg/dL AST 36 (14-36) U/L ALT 16 (0-35) U/L Alkaline Phosphatase 82 (38-126) U/L Troponin I (0.000-0.034) ng/mL Serum Total Protein 7.1 (6.3-8.2) g/dL Albumin 3.9 (3.5-5.0) g/dL Radiology Exams: Radiology Procedures Category Date Time Status CHEST 1 VIEW (PORTABLE) Stat Exams 01/14/21 12:25 Completed Multi-Disciplinary Progress Notes: Multi-Disciplinary Progress Notes 01/15/21 15:05 Case Management Note by Neelam Simon PT'S HERE VISITING. DISCUSSED THAT REFERRAL HAD BEEN SENT TO [facility]. NO OTHER NEEDS IDENTIFIED AT PRESENT TIME. Initialized on 01/15/21 15:05 - END OF NOTE 01/15/21 14:45 (created 01/15/21 15:06) Case Management Note by Neelam Simon REFERRAL FAXED TO [facility], SPOKE WITH DOROTHY TO REPORT. ALSO, PASRR COMPLETE, NO LEVEL II REQUIRED. ALSO, SENT TO [facility]. Initialized on 01/15/21 15:06 - END OF NOTE 01/15/21 08:15 (created 01/15/21 14:12) Case Management Note by Neelam Simon LONG DISCUSSION WITH SARAH VIA TELEPHONE REGARDING PT'S NEEDS FOR DISCHARGE. SARAH REPORTS THAT PT HAS HAD INCREASED CONFUSION AND WEAKNESS OVER THE LAST COUPLE OF WEEKS. REPORTS THAT HE HAS HAD SITTERS COMING IN TO HELP [facility]. REPORTS THAT THE [facility] WAS CONCERNED YESTERDAY WHEN SHE VISITED AND ENCOURAGED THEM TO COME TO HOSPITAL. DID DISCUSS DX: UTI AND THE EFFECTS IT CAN HAVE ON MENTAL STATUS. REPORTS THAT 2 WEEKS AGO PT WAS INDEPENDENT, SHE WAS ABLE TO DRESS/BATHE/TOILET HERSELF. BUT NOW SHE NEEDED HELP TO DO EVERYTHING. REPORTS THAT PT FELL IN JULY AND FRACTURED HER HIP AND WENT TO [facility] FOR REHAB STAY. REPORTS THAT HE PICKED HER UP ON Sep AND TOOK HER HOME. SINCE THEN THEY HAVE HAD ISSUES OFF/ON, BUT PT HAD BEEN DOING WELL UP UNTIL 2 WEEKS AGO. REPORTS THAT HE CAN NOT CARE OF HER IN THE STATE THAT SHE IS IN NOW. DOES NOT FEEL THAT SITTERS AND HHC SERVICES WOULD BE ENOUGH SUPPORT. REQUESTS REFERRAL TO [facility], [place], OR [facility]. HE JUST WANTS TO KEEP PT CLOSE TO HOME. REPORTS THAT PT HAD WANDERED A BIT WHEN SHE WAS AT [facility] THE LAST TIME, SO HE WAS UNSURE IF THEY WOULD BE ABLE TO TAKE HER BACK TO REHAB. DISCUSSED THAT PT WAS SO WEAK, THAT THIS LIKELY WOULD NOT BE AN ISSUE AT THIS MOMENT. ALSO, DISCUSSED WITH SARAH THAT WITH PT'S INSURANCE THE HALFWAY WOULD HAVE TO GET PRECERT FROM INSURANCE PRIOR TO REHAB STAY. SARAH VERBALIZED UNDERSTANDING TO ALL INFORMATION. WILL MAKE REFERRALS PER REQUEST. Initialized on 01/15/21 14:12 - END OF NOTE Assessment/Plan (1) UTI (urinary tract infection) Current Visit: Yes Status: Acute Qualifiers: Urinary tract infection type: acute pyelonephritis Qualified Code(s): N10 - Acute pyelonephritis Assessment & Plan: Chief Complaint Diagnosis weakness and confusion for 1 day Allergies Allergy/AdvReac Type Severity Reaction Status Date / Time No Known Drug Allergies Allergy Verified 08/18/20 13:09 Vital Signs (Last 24 hours) Temp Pulse Resp BP Pulse Ox 01/15/21 20:00 98.3 F 73 18 124/56 94 L 01/15/21 15:59 97.9 F 65 16 101/58 95 01/15/21 12:00 97.9 F 79 16 118/59 95 01/15/21 07:36 98.5 F 73 16 131/67 92 L 01/15/21 04:00 98 F 77 18 120/56 91 L 01/15/21 01:08 95 Home Medications Medication Instructions Recorded Confirmed Last Taken Type Cyanocobalamin/Folic AC/Vit B6 1 tab PO DAILY 01/14/21 01/14/21 01/13/21 History [Folbic Tablet] Donepezil HCl 10 mg [Aricept 10 10 mg PO HS 01/14/21 01/14/21 01/13/21 History MG] Loratadine 10 mg [Claritin 10 10 mg PO DAILY 01/14/21 01/14/21 01/13/21 History mg] Melatonin 10 mg PO HS 01/14/21 01/14/21 01/13/21 History Oxybutynin Chloride Xl 5 mg 5 mg PO DAILY 01/14/21 01/14/21 01/12/21 History [Ditropan XL 5 MG] Tramadol HCl/Acetaminophen 1 tab PO Q8HPRN PRN 01/14/21 01/14/21 Unknown History [Ultracet Tablet] Current Medications Generic Name Dose Route Start Last Admin Trade Name Freq PRN Reason Stop Dose Admin Acetaminophen 650 mg 01/14/21 17:25 Tylenol 325 Mg PO 02/13/21 17:24 Q6HPRN PRN PAIN Acetaminophen 325 mg 01/14/21 17:33 01/15/21 20:05 Tylenol 325 Mg PO 02/13/21 17:32 325 mg Q8H/PRN PRN Administration PAIN Amitriptyline HCl 50 mg 01/14/21 22:00 01/15/21 20:03 Amitriptyline Hcl 50 Mg Tablet PO 02/13/21 21:59 50 mg HS ÓSCAR Administration Docusate Sodium 100 mg 01/15/21 04:31 Colace 100 Mg PO 02/14/21 04:30 DAILY PRN PRN CONSTIPATION Donepezil HCl 10 mg 01/14/21 22:00 01/15/21 20:03 Aricept 10 Mg PO 02/13/21 21:59 10 mg HS ÓSCAR Administration Folic Acid 1 tab 01/14/21 18:00 01/15/21 09:30 Foltx (Folbic) PO 02/13/21 17:59 1 tab DAILY ÓSCAR Administration Sodium Chloride 1,000 mls @ 100 mls/hr 01/14/21 15:15 01/15/21 02:30 Sodium Chloride 0.9% 1000 Ml IV 02/13/21 15:14 100 mls/hr .Q10H ÓSCAR Administration Ceftriaxone Sodium/Dextrose 1 g in 50 mls @ 100 mls/hr 01/15/21 10:00 01/15/21 09:30 Rocephin 1 Gm-D5w 50 Ml Bag IV 01/18/21 09:59 100 mls/hr Q24H10 ÓSCAR Administration Loratadine 10 mg 01/14/21 18:00 01/15/21 09:30 Claritin 10 Mg PO 02/13/21 17:59 10 mg DAILY ÓSCAR Administration Memantine 10 mg 01/14/21 22:00 01/15/21 20:03 Namenda 5 Mg PO 02/13/21 21:59 10 mg HS ÓSCAR Administration Ondansetron HCl 4 mg 01/14/21 15:22 Zofran 4 Mg/2 Ml Vial IV 02/13/21 15:21 Q6H PRN PRN NAUSEA/VOMITING Oxybutynin Chloride 5 mg 01/14/21 18:00 01/15/21 09:27 Ditropan Xl 5 Mg PO 02/13/21 17:59 5 mg DAILY ÓSCAR Administration Pantoprazole Sodium 40 mg 01/14/21 17:00 01/15/21 09:30 Protonix 40 Mg Iv IV 02/13/21 16:59 40 mg Q24H10 ÓSCAR Administration Patient Own Med: 1 each 01/15/21 22:00 01/15/21 20:04 Melatonin 10 Mg PO 02/14/21 21:59 1 each Capsule HS ÓSCAR Administration Simvastatin 10 mg 01/14/21 22:00 01/15/21 20:04 Zocor 10mg PO 02/13/21 21:59 10 mg HS ÓSCAR Administration Tramadol HCl 50 mg 01/14/21 17:32 01/15/21 09:31 Ultram 50 Mg PO 02/13/21 17:31 50 mg Q8H/PRN PRN Administration PAIN Trandolapril 2 mg 01/15/21 10:00 01/15/21 09:29 Mavik 2 Mg PO 02/14/21 09:59 2 mg QOD ÓSCAR Administration Verapamil HCl 120 mg 01/15/21 10:00 01/15/21 09:29 Isoptin S.R. 240 Mg PO 02/14/21 09:59 120 mg QOD ÓSCAR Administration Discontinued Medications Generic Name Dose Route Start Last Admin Trade Name Freq PRN Reason Stop Dose Admin Docusate Sodium 100 mg 01/15/21 10:00 Colace 100 Mg PO 02/14/21 09:59 DAILY ÓSCAR Ceftriaxone Sodium/Dextrose 1 g in 50 mls @ 100 mls/hr 01/14/21 15:25 01/14/21 15:46 Rocephin 1 Gm-D5w 50 Ml Bag IV 01/14/21 15:54 100 mls/hr STAT STA 100 mls/hr Administration Ceftriaxone Sodium/Dextrose Confirm 01/14/21 15:44 Rocephin 1 Gm-D5w 50 Ml Bag Administered 01/14/21 15:45 Dose 1 g in 50 mls @ ud IV .STK-MED ONE Miscellaneous Information 1 each 01/14/21 17:45 Medication Intervention PO 02/13/21 17:44 .RN TO CHECK ON ÓSCAR Intake & Output (Last 24 hours) 01/13/21 01/14/21 01/15/21 01/16/21 11:59 11:59 11:59 11:59 Intake Total 1536 1083 Output Total 700 300 Balance 836 783 Weight 76 kg 76 kg Microbiology Results (Last 24 hours) 01/14/21 12:43 Catherized Urine Culture - Preliminary GRAM NEGATIVE ID AND SENSITIVITY PENDING Laboratory Results (Last 24 hours) 01/15/21 01/15/21 01/15/21 05:25 05:25 05:25 WBC 6.0 RBC 3.41 L Hgb 9.9 L Hct 31.4 L MCV 92.1 MCH 29.0 MCHC 31.5 L RDW 14.6 H Plt Count 225 MPV 9.7 Gran % 64.0 Eos # (Auto) 0.22 Absolute Lymphs (auto) 1.44 Absolute Monos (auto) 0.47 Lymphocytes % 24.0 Monocytes % 7.8 Eosinophils % 3.7 Basophils % 0.5 Absolute Granulocytes 3.85 Basophils # 0.03 Sodium 136 L Potassium 3.8 Chloride 105 Carbon Dioxide 25 Anion Gap 9.8 BUN 20 H Creatinine 0.82 Estimated GFR > 60.0 Glucose 93 Calcium 9.2 Total Bilirubin 0.40 AST 36 ALT 16 Alkaline Phosphatase 82 Troponin I < 0.012 Serum Total Protein 7.1 Albumin 3.9 01/14/21 21:52 WBC RBC Hgb Hct MCV MCH MCHC RDW Plt Count MPV Gran % Eos # (Auto) Absolute Lymphs (auto) Absolute Monos (auto) Lymphocytes % Monocytes % Eosinophils % Basophils % Absolute Granulocytes Basophils # Sodium Potassium Chloride Carbon Dioxide Anion Gap BUN Creatinine Estimated GFR Glucose Calcium Total Bilirubin AST ALT Alkaline Phosphatase Troponin I 0.015 Serum Total Protein Albumin Orders (Last 24 hours) Category Date Time Status Miscellaneous Nursing Order ROUTINE Care 01/15/21 15:17 Active Straigth Cath [Cath for Specimen-Straight] UD Care 01/15/21 07:19 Active Mechanical Soft Diet 01/15/21 Breakfast Active CBC W DIFF AM.LAB Lab 01/15/21 05:25 Completed CMP AM.LAB Lab 01/15/21 05:25 Completed TROPONIN Q3H Lab 01/14/21 21:52 Completed TROPONIN Q3H Lab 01/15/21 05:25 Completed AMITRIPTYLINE HCL 50 mg Tab [AMITRIPTYLINE HCL 50 mg Med 01/14/21 22:00 Active Tablet] 50 mg PO HS Ceftriaxone 1 GM/50 ML PREMIX* [ROCEPHIN 1 Gm-D5w 50 ml Med 01/15/21 10:00 Active Bag] 1 g in 50 ml IV Q24H10 Docusate Sodium 100 mg [Colace 100 MG] Med 01/15/21 10:00 Discontinued 100 mg PO DAILY Docusate Sodium 100 mg [Colace 100 MG] Med 01/15/21 04:31 Active 100 mg PO DAILY PRN PRN Donepezil HCl 10 mg [Aricept 10 MG] Med 01/14/21 22:00 Active 10 mg PO HS Memantine HCl 5 mg [Namenda 5 MG] Med 01/14/21 22:00 Active 10 mg PO HS Patient Own Med [Patient Own Medication] Med 01/15/21 22:00 Active 1 each PO HS Simvastatin 10 mg [Zocor 10MG] Med 01/14/21 22:00 Active 10 mg PO HS Trandolapril 2 mg [Mavik 2 MG] Med 01/15/21 10:00 Active 2 mg PO QOD Verapamil HCl Sr 240 mg [Isoptin S.r. 240 mg] Med 01/15/21 10:00 Active 120 mg PO QOD PT Eval & Treat ( Order) ONCE PT 01/15/21 15:10 Active Patient Care Notes (Last 24 hours) 01/15/21 15:05 Case Management Note by Neelam Simon PT'S HERE VISITING. DISCUSSED THAT REFERRAL HAD BEEN SENT TO [facility]. NO OTHER NEEDS IDENTIFIED AT PRESENT TIME. Initialized on 01/15/21 15:05 - END OF NOTE 01/15/21 14:45 (created 01/15/21 15:06) Case Management Note by Neelam Simon REFERRAL FAXED TO [facility], SPOKE WITH DOROTHY TO REPORT. ALSO, PASRR COMPLETE, NO LEVEL II REQUIRED. ALSO, SENT TO [facility]. Initialized on 01/15/21 15:06 - END OF NOTE 01/15/21 09:12 Nursing Note by Dorothy Jacob Patient up to bedside commode and voided 700 cc urine. Remains confused but denies any pain or discomfort right now. Initialized on 01/15/21 09:12 - END OF NOTE 01/15/21 08:15 (created 01/15/21 14:12) Case Management Note by Neelam Simon LONG DISCUSSION WITH SARAH VIA TELEPHONE REGARDING PT'S NEEDS FOR DISCHARGE. SARAH REPORTS THAT PT HAS HAD INCREASED CONFUSION AND WEAKNESS OVER THE LAST COUPLE OF WEEKS. REPORTS THAT HE HAS HAD SITTERS COMING IN TO HELP [facility]. REPORTS THAT THE [facility] WAS CONCERNED YESTERDAY WHEN SHE VISITED AND ENCOURAGED THEM TO COME TO HOSPITAL. DID DISCUSS DX: UTI AND THE EFFECTS IT CAN HAVE ON MENTAL STATUS. REPORTS THAT 2 WEEKS AGO PT WAS INDEPENDENT, SHE WAS ABLE TO DRESS/BATHE/TOILET HERSELF. BUT NOW SHE NEEDED HELP TO DO EVERYTHING. REPORTS THAT PT FELL IN JULY AND FRACTURED HER HIP AND WENT TO [facility] FOR REHAB STAY. REPORTS THAT HE PICKED HER UP ON Sep AND TOOK HER HOME. SINCE THEN THEY HAVE HAD ISSUES OFF/ON, BUT PT HAD BEEN DOING WELL UP UNTIL 2 WEEKS AGO. REPORTS THAT HE CAN NOT CARE OF HER IN THE STATE THAT SHE IS IN NOW. DOES NOT FEEL THAT SITTERS AND [facility] WOULD BE ENOUGH SUPPORT. REQUESTS REFERRAL TO [facility], [place], OR [facility]. HE JUST WANTS TO KEEP PT CLOSE TO HOME. REPORTS THAT PT HAD WANDERED A BIT WHEN SHE WAS AT [facility] THE LAST TIME, SO HE WAS UNSURE IF THEY WOULD BE ABLE TO TAKE HER BACK TO REHAB. DISCUSSED THAT PT WAS SO WEAK, THAT THIS LIKELY WOULD NOT BE AN ISSUE AT THIS MOMENT. ALSO, DISCUSSED WITH SARAH THAT WITH PT'S INSURANCE THE HALFWAY WOULD HAVE TO GET PRECERT FROM INSURANCE PRIOR TO REHAB STAY. SARAH VERBALIZED UNDERSTANDING TO ALL INFORMATION. WILL MAKE REFERRALS PER REQUEST. Initialized on 01/15/21 14:12 - END OF NOTE 01/15/21 07:15 (created 01/15/21 07:38) Nursing Note by Pepito Kumar Called Dr Schreiber again to notify regarding no void for this shift. No answer. He called back a few minutes later. Ordered for straight cath once to see what comes out. Initialized on 01/15/21 07:38 - END OF NOTE 01/15/21 06:40 (created 01/15/21 07:36) Nursing Note by Pepito Kumar Called Dr Schreiber to notifiy no void for this shift. No answer. Left message. Initialized on 01/15/21 07:36 - END OF NOTE Code(s): N39.0 - URINARY TRACT INFECTION, SITE NOT SPECIFIED (2) Confusion with non-focal neuro exam Current Visit: Yes Status: Acute Code(s): R41.0 - DISORIENTATION, UNSPECIFIED
[2021-01-16] MEDS: ULTRAM 50 MG PO PRN (00:27)
[2021-01-16] MEDS: Sodium Chloride 0.9% 1000 ML 1,000 ML IV SCH ×3 (00:29→21:03)
--- NOTE | 2021-01-16 07:55 | PCM.NOTE ---
Date and Time: 01/16/21 0754 Subjective Assessment: doing better - Review of Systems Constitutional: No Fever, No Chills Eyes: No Symptoms Ears, Nose, & Throat: No Symptoms Respiratory: No Cough, No Short Of Breath Cardiac: No Chest Pain, No Edema, No Syncope Abdominal/Gastrointestinal: No Abdominal Pain, No Nausea, No Vomiting, No Diarrhea Genitourinary Symptoms: No Dysuria Musculoskeletal: No Back Pain, No Neck Pain Skin: No Rash Neurological: No Dizziness, No Focal Weakness, No Sensory Changes Psychological: No Symptoms Endocrine: No Symptoms Hematologic/Lymphatic: No Symptoms Immunological/Allergic: No Symptoms Objective Exam General Appearance: no apparent distress, alert Neurologic Exam: alert, oriented x 3, cooperative, normal mood/affect, nml cerebellar function, sensation nml, No motor deficits Skin Exam: normal color, warm, dry Eye Exam: PERRL, EOMI, eyes nml inspection Ears, Nose, Throat Exam: normal ENT inspection, pharynx normal, moist mucous membranes Neck Exam: normal inspection, non-tender, supple, full range of motion Respiratory Exam: normal breath sounds, lungs clear, No respiratory distress Cardiovascular Exam: regular rate/rhythm, normal heart sounds Gastrointestinal/Abdomen Exam: soft, No tenderness, No mass Extremity Exam: normal inspection, normal range of motion Back Exam: normal inspection, normal range of motion, No CVA tenderness, No vertebral tenderness Pelvic Exam: deferred Rectal Exam: deferred OBJECTIVE DATA Vital Signs: Vital Signs - 24 hr Temp Pulse Resp BP Pulse Ox 01/16/21 04:00 97.7 F 66 20 117/78 95 01/15/21 23:49 98.0 F 76 18 126/57 94 L 01/15/21 20:00 98.3 F 73 18 124/56 94 L 01/15/21 15:59 97.9 F 65 16 101/58 95 01/15/21 12:00 97.9 F 79 16 118/59 95 Pain Assessment - Last Documented Pain Intensity 4 Pain Scale Used 0-10 Pain Scale Intake and Output: Intake & Output 01/13/21 01/14/21 01/15/21 01/16/21 11:59 11:59 11:59 11:59 Intake Total 1536 2033 Output Total 700 300 Balance 836 1733 Weight 76 kg 76 kg Radiology Exams: Radiology Procedures Category Date Time Status CHEST 1 VIEW (PORTABLE) Stat Exams 01/14/21 12:25 Completed Multi-Disciplinary Progress Notes: Multi-Disciplinary Progress Notes 01/15/21 15:05 Case Management Note by Neelam Simon PT'S HERE VISITING. DISCUSSED THAT REFERRAL HAD BEEN SENT TO [facility]. NO OTHER NEEDS IDENTIFIED AT PRESENT TIME. Initialized on 01/15/21 15:05 - END OF NOTE 01/15/21 14:45 (created 01/15/21 15:06) Case Management Note by Neelam Simon REFERRAL FAXED TO [facility], SPOKE WITH TYRONE TO REPORT. ALSO, PASRR COMPLETE, NO LEVEL II REQUIRED. ALSO, SENT TO [facility]. Initialized on 01/15/21 15:06 - END OF NOTE 01/15/21 08:15 (created 01/15/21 14:12) Case Management Note by Neelam Simon LONG DISCUSSION WITH SARAH VIA TELEPHONE REGARDING PT'S NEEDS FOR DISCHARGE. SARAH REPORTS THAT PT HAS HAD INCREASED CONFUSION AND WEAKNESS OVER THE LAST COUPLE OF WEEKS. REPORTS THAT HE HAS HAD SITTERS COMING IN TO HELP [facility]. REPORTS THAT THE [facility] NURSE WAS CONCERNED YESTERDAY WHEN SHE VISITED AND ENCOURAGED THEM TO COME TO HOSPITAL. DID DISCUSS DX: UTI AND THE EFFECTS IT CAN HAVE ON MENTAL STATUS. REPORTS THAT 2 WEEKS AGO PT WAS INDEPENDENT, SHE WAS ABLE TO DRESS/BATHE/TOILET HERSELF. BUT NOW SHE NEEDED HELP TO DO EVERYTHING. REPORTS THAT PT FELL IN JULY AND FRACTURED HER HIP AND WENT TO [facility] FOR REHAB STAY. REPORTS THAT HE PICKED HER UP ON Sep AND TOOK HER HOME. SINCE THEN THEY HAVE HAD ISSUES OFF/ON, BUT PT HAD BEEN DOING WELL UP UNTIL 2 WEEKS AGO. REPORTS THAT HE CAN NOT CARE OF HER IN THE STATE THAT SHE IS IN NOW. DOES NOT FEEL THAT SITTERS AND HHC SERVICES WOULD BE ENOUGH SUPPORT. REQUESTS REFERRAL TO [facility], [facility], OR [facility]. HE JUST WANTS TO KEEP PT CLOSE TO HOME. REPORTS THAT PT HAD WANDERED A BIT WHEN SHE WAS AT [facility] THE LAST TIME, SO HE WAS UNSURE IF THEY WOULD BE ABLE TO TAKE HER BACK TO REHAB. DISCUSSED THAT PT WAS SO WEAK, THAT THIS LIKELY WOULD NOT BE AN ISSUE AT THIS MOMENT. ALSO, DISCUSSED WITH SARAH THAT WITH PT'S INSURANCE THE RETIREMENT WOULD HAVE TO GET PRECERT FROM INSURANCE PRIOR TO REHAB STAY. SARAH VERBALIZED UNDERSTANDING TO ALL INFORMATION. WILL MAKE REFERRALS PER REQUEST. Initialized on 01/15/21 14:12 - END OF NOTE Assessment/Plan (1) UTI (urinary tract infection) Current Visit: Yes Status: Acute Qualifiers: Urinary tract infection type: acute pyelonephritis Qualified Code(s): N10 - Acute pyelonephritis Assessment & Plan: improving Code(s): N39.0 - URINARY TRACT INFECTION, SITE NOT SPECIFIED (2) Confusion with non-focal neuro exam Current Visit: Yes Status: Acute Code(s): R41.0 - DISORIENTATION, UNSPECIFIED
[2021-01-16] MEDS: CLARITIN 10 MG PO SCH (09:41)
[2021-01-16] MEDS: Ditropan XL 5 MG PO SCH (09:41)
[2021-01-16] MEDS: FOLTX (FOLBIC) PO SCH (09:41)
[2021-01-16] MEDS: PROTONIX 40 MG IV IV SCH (09:41)
[2021-01-16] MEDS: ROCEPHIN 1 Gm-D5w 50 ml Bag** 1 G/50 ML IVPB IV SCH (09:41)
[2021-01-16] MEDS: Zocor 10MG PO SCH (21:23)
[2021-01-16] MEDS: Aricept 10 MG PO SCH (21:23)
[2021-01-16] MEDS: Namenda 5 MG PO SCH (21:23)
[2021-01-16] MEDS: PATIENT OWN MEDICATION PO SCH (21:37)
[2021-01-17] MEDS: Sodium Chloride 0.9% 1000 ML 1,000 ML IV SCH (06:59)
[2021-01-17] MEDS: CLARITIN 10 MG PO SCH (10:00)
[2021-01-17] MEDS: PROTONIX 40 MG IV IV SCH (10:00)
[2021-01-17] MEDS: Mavik 2 MG PO SCH (10:01)
[2021-01-17] MEDS: KEFLEX 250 MG PO SCH ×4 (10:01→20:56)
[2021-01-17] MEDS: FOLTX (FOLBIC) PO SCH (10:01)
[2021-01-17] MEDS: Ditropan XL 5 MG PO SCH (10:01)
[2021-01-17] MEDS: ISOPTIN S.R. 240 MG PO SCH (10:01)
[2021-01-17] MEDS: Namenda 5 MG PO SCH (20:55)
[2021-01-17] MEDS: Aricept 10 MG PO SCH (20:56)
[2021-01-17] MEDS: Zocor 10MG PO SCH (20:56)
[2021-01-17] MEDS: PATIENT OWN MEDICATION PO SCH (20:57)
[2021-01-18] MEDS: KEFLEX 250 MG PO SCH ×3 (10:53→16:40)
[2021-01-18] MEDS: Ditropan XL 5 MG PO SCH (10:53)
[2021-01-18] MEDS: FOLTX (FOLBIC) PO SCH (10:53)
[2021-01-18] MEDS: CLARITIN 10 MG PO SCH (10:53)
[2021-01-18] MEDS: PROTONIX 40 MG IV IV SCH (11:04)
--- NOTE | 2021-01-18 11:40 | PCM.NOTE ---
Date and Time: 1100 Subjective Assessment: doing better - Review of Systems Constitutional: No Fever, No Chills Eyes: No Symptoms Ears, Nose, & Throat: No Symptoms Respiratory: No Cough, No Short Of Breath Cardiac: No Chest Pain, No Edema, No Syncope Abdominal/Gastrointestinal: No Abdominal Pain, No Nausea, No Vomiting, No Diarrhea Genitourinary Symptoms: No Dysuria Musculoskeletal: No Back Pain, No Neck Pain Skin: No Rash Neurological: No Dizziness, No Focal Weakness, No Sensory Changes Psychological: No Symptoms Endocrine: No Symptoms Hematologic/Lymphatic: No Symptoms Immunological/Allergic: No Symptoms Objective Exam General Appearance: no apparent distress, alert Neurologic Exam: alert, oriented x 3, cooperative, normal mood/affect, nml cerebellar function, sensation nml, No motor deficits Skin Exam: normal color, warm, dry Eye Exam: PERRL, EOMI, eyes nml inspection Ears, Nose, Throat Exam: normal ENT inspection, pharynx normal, moist mucous membranes Neck Exam: normal inspection, non-tender, supple, full range of motion Respiratory Exam: normal breath sounds, lungs clear, No respiratory distress Cardiovascular Exam: regular rate/rhythm, normal heart sounds Gastrointestinal/Abdomen Exam: soft, No tenderness, No mass Extremity Exam: normal inspection, normal range of motion Back Exam: normal inspection, normal range of motion, No CVA tenderness, No vertebral tenderness Pelvic Exam: deferred Rectal Exam: deferred OBJECTIVE DATA Vital Signs: Vital Signs - 24 hr Temp Pulse Resp BP Pulse Ox 01/18/21 08:00 98.8 F 77 18 133/79 91 L 01/18/21 04:00 97.8 F 75 20 110/63 94 L 01/18/21 00:00 98.3 F 78 18 147/70 94 L 01/17/21 20:00 98.7 F 79 20 135/68 96 01/17/21 16:00 96.0 F 76 16 119/64 94 L Pain Assessment - Last Documented Pain Intensity 0 Pain Scale Used 0-10 Pain Scale Intake and Output: Intake & Output 01/15/21 01/16/21 01/17/21 01/18/21 11:59 11:59 11:59 11:59 Intake Total 1536 2153 3085 1000 Output Total 700 300 900 Balance 836 1853 3085 100 Weight 76 kg 76 kg Multi-Disciplinary Progress Notes: Multi-Disciplinary Progress Notes 01/18/21 10:44 Case Management Note by Mildred Santamaria SPOKE WITH MMM, THEY REQUEST UPDATED PAPERWORK FOR PT FOR INSURANCE APPROVAL. UPDATES FAXED, DR ESCALERA AWARE OF AWAITING ON INSURANCE APPROVAL AT THIS TIME. Initialized on 01/18/21 10:44 - END OF NOTE 01/17/21 14:25 Physical Therapy Note by Kady Payne PT SEEN FOR ADLS FOR FUNCTIONAL SKILLS WITH TRANSFERS, AMBULATION AND ENDURANCE STRENGTHENING WITHIN PT'S TOLERANCE. PT TRANSFER SUPINE TO SITTING AT SIDE OF BED WITH MOD ASSIST OF 2 TO COMPLETE AND ENCOURAGE POSITIONING CHANGE. SITTING BALANCE AT BEDSIDE INDEPENDENT HOWEVER CCG OF ONE FOR SAFETY. PT AMBULATED WITH ROLLING WALKER 20' WITH MIN TO MOD ASSIST OF TWO TO ASSIST PT WITH ADVANCING THE WALKER AND TO KEEP ATTENTION ON TASK DUE TO EASILY DISTRACTION RELATED TO DEMENTIA LIKE SYMPTOMS. PT DID EXPRESS FATIGUE WITH AMBULATION. LE FUNCTIONAL STRENGTH FAIR TO GOOD AND SIT TO STAND PT DID NOT NEED LIFT ASSIST. NO QUAD WEAKNESS (KNEE BUCKLING) OCCURRED WITH AMBULATION WITH A.D. PT REQUIRED VERBAL AND TACTILE CUES FOR SAFETY WITH TRANSFER STAND TO SIT INTO BEDSIDE CHAIR. PT PLEASANTLY CONFUSED HOWEVER CO OPERATIVE WITH AMBULATION WITH ENCOURAGEMENT. CONTINUE CURRENT IN PATIENT REHAB POC BID TOLERATED WITH HOSPITAL ADMISSION. Initialized on 01/17/21 14:25 - END OF NOTE Assessment/Plan (1) UTI (urinary tract infection) Current Visit: Yes Status: Acute Qualifiers: Urinary tract infection type: acute pyelonephritis Qualified Code(s): N10 - Acute pyelonephritis Assessment & Plan: improving Code(s): N39.0 - URINARY TRACT INFECTION, SITE NOT SPECIFIED (2) Confusion with non-focal neuro exam Current Visit: Yes Status: Acute Code(s): R41.0 - DISORIENTATION, UNSPECIFIED
[2021-01-18 12:09] VITALS: PULSE 74
[2021-01-18 16:54] VITALS: BP 156/71; O2SAT 91
[2021-01-19] MEDS ORDERED: Protonix 40MG Tablet PO SCH (11:30)
== END 2021-01-18 17:28 ==
LOC: ED 12:19 → MED SURG 15:57
PROVIDERS: ADMIT General Practice; ATTEND General Practice
DX: N39.0 Urinary tract infection, site not specified (principal); R41.0 Disorientation, unspecified; R53.1 Weakness; Z79.899 Other long term (current) drug therapy; I10 Essential (primary) hypertension; E78.00 Pure hypercholesterolemia, unspecified; Z20.828 Contact with and (suspected) exposure to other viral communicable diseases
CPT/HCPCS: 0241U; 36000; 36415; 71045; 80053; 80307; 81001; 83605; 83880; 84484; 85025; 87040; 87077; 87086; 87186; 92610; 93005; 97161; 97530; 99285; G0378; J0696; A9270-GY

== ENCOUNTER 2021-02-19 15:12 | Emergency (ER) | payer MEDICARE ==
[2021-02-19] MEDS ORDERED: Sodium Chloride 0.9% 500 ML 500 ML IV ONE ×2 (15:30→15:39)
[2021-02-19 15:42] LABS: Absolute Neutrophil Ct (ANC) 7.94 (1.4-6.9); BASOPHIL % 0.1 % (0.0-0.4); Basophil (Absolute #) 0.01 (0-0.4); Eosinophil % 0.9 % (0.00-5.0); Eosinophil (Absolute #) 0.09 (0-0.5); Hematocrit 36.5 % (35-47); Hemoglobin 10.7 gm/dl (12.0-16.0); Lymphocyte (Absolute #) 1.52 (1.0-4.6); Lymphocytes % 14.7 % (24.0-44.0); Mean Cell Volume 92.9 fl (78-100); Mean Corpuscular Hemoglobin 27.2 pg (26-32); Mean Corpuscular Hgb Concent. 29.3 g/dl (32-36); Mean Platelet Volume 10.9 fl (7.5-11.0); Monocyte (Absolute #) 0.76 (0.0-1.3); Monocytes % 7.4 % (0.0-12.0); Neutrophil % 76.9 % (36.0-66.0); Platelet Count 413 K/mm3 (150-450); Red Blood Count 3.93 M/mm3 (4.1-5.4); Red Cell Distribution Width 16.1 % (11.5-14.0); White Blood Count 10.3 K/mm3 (4.0-10.5)
[2021-02-19 15:58] LABS: ALBUMIN 4.2 g/dL (3.5-5.0); ANION GAP 14.3 MEQ/L (5-15); BILIRUBIN,TOTAL 0.5 mg/dL (0.2-1.3); Calcium 10.7 mg/dL (8.4-10.2); Creatinine 1 1.44 mg/dL (0.52-1.04); EST GLOMERULAR FILTRATION RATE 37.3 ML/MIN; MAGNESIUM 2.4 mg/dL (1.6-2.3); Potassium 3.5 mmol/L (3.5-5.1); Total Protein 7.5 g/dL (6.3-8.2)
[2021-02-19 16:41] LABS: Appearance SLIGHTLY CLOUDY (CLEAR); Bacteria MODERATE /HPF (NEGATIVE); Bilirubin NEGATIVE (NEGATIVE); Blood NEGATIVE Ery/ul (0-5); Epithelial Cells FEW /HPF (FEW); Glucose NEGATIVE (NEGATIVE); Hyaline Casts 0-2 /LPF (0-2); Ketones TRACE (NEGATIVE); Leukocyte Esterase MODERATE (NEGATIVE); Mucus SLIGHT /HPF (NEGATIVE); Nitrite NEGATIVE (NEGATIVE); Non-Squamous Epithelial Cells RARE /HPF (FEW); Protein,Urine Dip 30 (Negative); Specific Gravity 1.024 (1.005-1.025); Urobilinogen 4 mg/dL (0-1)
[2021-02-19] MEDS ORDERED: ROCEPHIN 1 Gm-D5w 50 ml Bag** 1 G/50 ML IVPB IV STA (17:02)
[2021-02-19] MEDS ORDERED: ROCEPHIN 1 Gm-D5w 50 ml Bag** 1 G/50 ML IVPB IV ONE (17:05)
--- NOTE | 2021-02-19 17:06 | XRAY ---
Indication: Possible syncope. Comparison: January 14, 2021. Portable chest better inflated again with chronic interstitial lung markings and a few incidental calcified granulomas. Heart not enlarged for AP portable technique. Bony thorax intact again with osteopenia, degenerative changes, and dextroscoliosis. Impression: Nonacute chest with chronic features.
--- NOTE | 2021-02-19 17:09 | XRAY ---
Indication: Abdomen pain and diarrhea. Patient confused and uncooperative. Multiple contiguous axial images obtained through the abdomen and pelvis without contrast. Comparison: June 12, 2020. Study is again slightly degraded by respiration artifact. Patient's arms also produces beam artifact. Lung bases again demonstrates bilateral dependent atelectasis more than before and left lower lobe calcified granuloma. Heart not enlarged. Noncontrasted stomach and bowel loops appear nonobstructed again with sigmoid diverticulosis. Appendectomy previously reported. No free fluid/air. Remaining liver, gallbladder, pancreas, spleen, adrenal glands, kidneys, ureters, and bladder are grossly unremarkable for noncontrast exam. There remains heavy scattered aortoiliac calcifications with 2.8 cm distal AAA. Osseous structures intact again without osteopenia, multilevel double curvature scoliosis, multilevel thoracolumbar degenerative spondylosis, and remote L1 superior endplate fracture. New finding incompletely visualized proximal right femur fracture with orthopedic fixation hardware. Enlarged left inguinal adenopathy today measures 2.7 x 2.0 cm, previously 3.3 x 2.7 cm. Impression: 1. Limited exam due to respiration and beam artifact. 2. New finding old right proximal femur fracture with orthopedic fixation hardware. 3. Left inguinal lymphadenopathy appears slightly smaller. 4. Grossly stable sigmoid diverticulosis, fracture or short disease with distal AAA, and chronic bony findings.
[2021-02-19] MEDS ORDERED: SODIUM CHLORIDE 0.45% W/ 20 mEq KCL 1,000 ML IV SCH (17:15)
--- NOTE | 2021-02-19 17:16 | ERPHSYRPT ---
- History of Present Illness Time Seen by Provider: 02/19/21 15:15 Source: EMS, intermediate records Exam Limitations: clinical condition Patient Subjective Stated Complaint: Abdominal pain Triage Nursing Assessment: Patient brought into ED via EMS and transferred to bed with assist of 2. Patient Alert to self only and has dx of dementia. Patient resides at [facility] and staff stated patient was using toilet and had a vagal episode and "passed out". Patient has been having diarrhea and abdominal pain. Patient denies pain or discomfort at this time. Patient poor historian. Physician History: 80 years old female with severe dementia, cachexia, chronic hypertension is brought in the ER from intermediate via EMS after she was having diarrhea since morning with abdominal pain and while sitting on the commode she vasovagal, fainted. She is awake alert on presentation but according to intermediate she is not at her baseline. Earlier at intermediate labs were checked and her serum sodium was 154 and is getting fluids. Patient is moving all 4 extremities, mildly agitated and history is limited. Timing/Duration: today, gradual onset, worse Severity: moderate Associated Symptoms: abdominal pain, malaise, weakness Allergies/Adverse Reactions: No Known Drug Allergies Allergy (Verified 02/19/21 15:17) Home Medications: Amitriptyline HCl 50 mg PO HS 10/18/14 [History] Memantine HCl [Namenda] 10 mg PO HS 10/18/14 [History] Rosuvastatin Calcium [Crestor] 5 mg PO HS 10/18/14 [History] Cyanocobalamin/Folic AC/Vit B6 [Folbic Tablet] 1 tab PO DAILY 01/14/21 [History] Donepezil HCl 10 mg [Aricept 10 MG] 10 mg PO DAILY 01/14/21 [History] Loratadine 10 mg [Claritin 10 mg] 10 mg PO DAILY 01/14/21 [History] Melatonin 10 mg PO HS 01/14/21 [History] Oxybutynin Chloride Xl 5 mg [Ditropan XL 5 MG] 5 mg PO DAILY 01/14/21 [History] ALPRAZolam [Alprazolam] 0.5 mg PO Q6H PRN PRN 02/19/21 [History] Acetaminophen 325 mg [Tylenol 325 mg] 2 tablet PO Q6H PRN PRN 02/19/21 [History] Bisacodyl [Dulcolax] 10 mg [place] DAILY PRN PRN 02/19/21 [History] Enoxaparin Sodium [Lovenox] 30 mg SQ BID 02/19/21 [History] Oxycodone HCl 5 mg PO Q4H PRN PRN 02/19/21 [History] Sennosides/Docusate Sodium [Senna Plus 8.6-50 mg Softgel] 1 tab PO BID 02/19/21 [History] Verapamil HCl Sr 240 mg [Isoptin S.r. 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 - Vaccination Dates Date of 2cond Vaccination (if applicable): 11/01/20 Dates if Unknown: Maderma - Review of Systems All Other Systems: Unable due to dementia - Past Medical History Pertinent Past Medical History: Yes Neurological History: Dementia ENT History: No Pertinent History Cardiac History: High Cholesterol, Hypertension Respiratory History: No Pertinent History Endocrine Medical History: No Pertinent History Musculoskeletal History: Degenerative Disk Disease, Osteoarthritis, Osteoporosis GI Medical History: No Pertinent History History: No Pertinent History Psycho-Social History: Depression Other Medical History: pt is a poor historian- 02/19/2021. R leg skin cancer/treated. - Past Surgical History Past Surgical History: Yes Neuro Surgical History: No Pertinent History Cardiac: No Pertinent History Respiratory: No Pertinent History Gastrointestinal: No Pertinent History Genitourinary: No Pertinent History Musculoskeletal: No Pertinent History Female Surgical History: No Pertinent History Other Surgical History: Hebert knee repair. FX R hip repair. - Social History Smoking Status: Former smoker How long have you smoked: years Exposure to second hand smoke: No Drug Use: none Patient Lives Alone: No (MMM) Significant Family History: no pertinent family hx - Nursing Vital Signs Nursing Vital Signs: Initial Vital Signs Temperature 97.3 F 02/19/21 15:18 Pulse Rate 95 H 02/19/21 15:18 Respiratory Rate 20 02/19/21 15:18 Blood Pressure 67/40 02/19/21 15:18 O2 Sat by Pulse Oximetry 93 L 02/19/21 15:18 Pain Scale Pain Intensity 0 - Physical Exam General Appearance: no apparent distress, other (Cachectic) Eye Exam: PERRL/EOMI, No scleral icterus Ears, Nose, Throat Exam: dry mucous membranes, pharyngeal erythema Neck Exam: normal inspection, non-tender, full range of motion Respiratory Exam: normal breath sounds, lungs clear Cardiovascular Exam: regular rate/rhythm, normal heart sounds Gastrointestinal/Abdomen Exam: soft, normal bowel sounds, tenderness (Mild generalized), No guarding Extremity Exam: normal inspection, pelvis stable Neurologic Exam: alert, No oriented x 3, No cooperative, No substitute nurse II-XII nml as tested Skin Exam: normal color SpO2 Interpretation: normal SpO2: 95 O2 Delivery: Room Air - Course EKG Interpreted by Me: RATE (94), Sinus Rhythm, NORMAL AXIS, prolonged QT interval, Q-wave (Inferior) Ordered Tests: Active Orders 24 hr Category Date Time Status Code Status Order ROUTINE Care 02/19/21 18:28 Active EKG-ER Only STAT Care 02/19/21 15:28 Completed IV Care Q6H Care 02/19/21 18:28 Active IV Insertion STAT Care 02/19/21 15:28 Completed NPO (ED) STAT Care 02/19/21 15:28 Completed Neuro Checks Q2H Care 02/19/21 18:28 Active POCT Glucose Check ACHS Care 02/19/21 18:[address] in Observation ROUTINE Care 02/19/21 18:28 Active Walter Hose, Apply ROUTINE Care 02/19/21 18:28 Active Weight,Daily 0600 Care 02/19/21 18:28 Active ABDOMEN AND PELVIS W/0 CONTRAS [CT] Stat Exams 02/19/21 15:29 Completed CHEST 1 VIEW (PORTABLE) Stat Exams 02/19/21 15:29 Completed BLOOD CULTURE Stat Lab 02/19/21 16:28 Received BMP AM.LAB Lab 02/20/21 04:00 Ordered CBC W DIFF AM.LAB Lab 02/20/21 04:00 Ordered CBC W DIFF Stat Lab 02/19/21 15:28 Completed CMP AM.LAB Lab 02/20/21 04:00 Ordered CMP Stat Lab 02/19/21 15:28 Completed CULTURE,URINE Stat Lab 02/19/21 15:57 Received LIPASE Stat Lab 02/19/21 15:28 Completed Lactic Acid Stat Lab 02/19/21 15:28 Completed Lactic Acid Stat Lab 02/19/21 18:04 Completed MAGNESIUM Stat Lab 02/19/21 15:28 Completed TROPONIN Q3H Lab 02/19/21 15:30 Completed TROPONIN Q3H Lab 02/19/21 18:05 Completed TROPONIN Q3H Lab 02/19/21 21:30 Ordered TROPONIN Q3H Lab 02/20/21 00:30 Ordered TROPONIN Q3H Lab 02/20/21 03:30 Ordered UA W/RFX UR CULTURE Stat Lab 02/19/21 15:57 Completed Transfer Order Routine Transfer 02/19/21 Completed Medication Summary Generic Name Dose Route Start Last Admin Trade Name Freq PRN Reason Stop Dose Admin Dextrose/Sodium Chloride 1,000 mls @ 100 mls/hr 02/19/21 18:28 02/19/21 18:54 Dextrose 5% -0.45 Nacl 1000 Ml IV 03/21/21 18:27 Not Given .Q10H ÓSCAR Ceftriaxone Sodium/Dextrose 1 g in 50 mls @ 100 mls/hr 02/20/21 10:00 Rocephin 1 Gm-D5w 50 Ml Bag IV 02/23/21 09:59 Q24H10 ÓCSAR Sodium Chloride 1,000 mls @ 155 mls/hr 02/19/21 19:00 02/19/21 18:46 Sodium Chloride 0.45% 1000 Ml IV 02/19/21 20:00 155 mls/hr .Q6H28M ÓSCAR Administration Ondansetron HCl 4 mg 02/19/21 18:28 Zofran 4 Mg/2 Ml Vial IV 03/21/21 18:27 Q6H PRN PRN NAUSEA/VOMITING Pantoprazole Sodium 40 mg 02/20/21 10:00 Protonix 40 Mg Iv IV 03/22/21 09:59 Q24H10 ÓSCAR Discontinued Medications Generic Name Dose Route Start Last Admin Trade Name Freq PRN Reason Stop Dose Admin Sodium Chloride 500 mls @ 500 mls/hr 02/19/21 15:30 02/19/21 16:42 Sodium Chloride 0.9% 500 Ml IV 02/19/21 16:29 Infused .Q1H ONE Infusion Sodium Chloride Confirm 02/19/21 15:39 Sodium Chloride 0.9% 500 Ml Administered 02/19/21 15:40 Dose 500 mls @ ud IV .STK-MED ONE Ceftriaxone Sodium/Dextrose 1 g in 50 mls @ 100 mls/hr 02/19/21 17:02 02/19/21 17:41 Rocephin 1 Gm-D5w 50 Ml Bag IV 02/19/21 17:31 Infused STAT STA Infusion Ceftriaxone Sodium/Dextrose Confirm 02/19/21 17:05 Rocephin 1 Gm-D5w 50 Ml Bag Administered 02/19/21 17:06 Dose 1 g in 50 mls @ ud IV .STK-MED ONE Potassium Chloride/Sodium Chloride 1,000 mls @ 155 mls/hr 02/19/21 17:15 02/19/21 18:54 Sodium Chloride 0.45% W/ 20 Meq Kcl IV 03/21/21 17:14 Not Given .Q6H28M ÓSCAR Sodium Chloride Confirm 02/19/21 18:39 Sodium Chloride 0.45% 1000 Ml Administered 02/19/21 18:40 Dose 1,000 mls @ ud IV .STK-MED ONE Lab/Rad Data: Laboratory Result Diagrams 02/19/21 15:28 02/19/21 15:28 Laboratory Results 02/19/21 02/19/21 02/19/21 Range/Units 18:05 18:04 17:15 WBC (4.0-10.5) K/mm3 RBC (4.1-5.4) M/mm3 Hgb (12.0-16.0) gm/dl Hct (35-47) % MCV (78-100) fl MCH (26-32) pg MCHC (32-36) g/dl RDW (11.5-14.0) % Plt Count (150-450) K/mm3 MPV (7.5-11.0) fl Gran % (36.0-66.0) % Eos # (Auto) (0-0.5) Absolute Lymphs (auto) (1.0-4.6) Absolute Monos (auto) (0.0-1.3) Lymphocytes % (24.0-44.0) % Monocytes % (0.0-12.0) % Eosinophils % (0.00-5.0) % Basophils % (0.0-0.4) % Absolute Granulocytes (1.4-6.9) Basophils # (0-0.4) Sodium (137-145) mmol/L Potassium (3.5-5.1) mmol/L Chloride (98-107) mmol/L Carbon Dioxide (22-30) mmol/L Anion Gap (5-15) MEQ/L BUN (7-17) mg/dL Creatinine (0.52-1.04) mg/dL Estimated GFR ML/MIN Glucose (74-106) mg/dL Lactic Acid 1.0 (0.4-2.0) Calcium (8.4-10.2) mg/dL Magnesium (1.6-2.3) mg/dL Total Bilirubin (0.2-1.3) mg/dL AST (14-36) U/L ALT (0-35) U/L Alkaline Phosphatase (38-126) U/L Troponin I 0.017 (0.000-0.034) ng/mL Serum Total Protein (6.3-8.2) g/dL Albumin (3.5-5.0) g/dL Lipase (23-300) U/L Urine Color (YELLOW) Urine Appearance (CLEAR) Urine pH (5-6) Ur Specific [place] (1.005-1.025) Urine Protein (Negative) Urine Ketones (NEGATIVE) Urine Blood (0-5) Ld/ul Urine Nitrite (NEGATIVE) Urine Bilirubin (NEGATIVE) Urine Urobilinogen (0-1) mg/dL Ur Leukocyte Esterase (NEGATIVE) Urine WBC (Auto) (0-5) /HPF Urine RBC (Auto) (0-2) /HPF U Hyaline Cast (Auto) (0-2) /LPF U Epithel Cells (Auto) (FEW) /HPF Urine Bacteria (Auto) (NEGATIVE) /HPF U Non-Squamous Epi Cells (FEW) /HPF Urine Mucus (Auto) (NEGATIVE) /HPF Urine Culture Reflexed (NO) Urine Glucose (NEGATIVE) mg/dL Influenza Type A Ag NEGATIVE (NEGATIVE) Influenza Type B Ag NEGATIVE (NEGATIVE) RSV (PCR) NEGATIVE (Negative) SARS-CoV-2 (PCR) NEGATIVE (NEGATIVE) 02/19/21 02/19/21 02/19/21 Range/Units 15:57 15:30 15:28 WBC (4.0-10.5) K/mm3 RBC (4.1-5.4) M/mm3 Hgb (12.0-16.0) gm/dl Hct (35-47) % MCV (78-100) fl MCH (26-32) pg MCHC (32-36) g/dl RDW (11.5-14.0) % Plt Count (150-450) K/mm3 MPV (7.5-11.0) fl Gran % (36.0-66.0) % Eos # (Auto) (0-0.5) Absolute Lymphs (auto) (1.0-4.6) Absolute Monos (auto) (0.0-1.3) Lymphocytes % (24.0-44.0) % Monocytes % (0.0-12.0) % Eosinophils % (0.00-5.0) % Basophils % (0.0-0.4) % Absolute Granulocytes (1.4-6.9) Basophils # (0-0.4) Sodium 148 H (137-145) mmol/L Potassium 3.5 (3.5-5.1) mmol/L Chloride 112 H (98-107) mmol/L Carbon Dioxide 25 (22-30) mmol/L Anion Gap 14.3 (5-15) MEQ/L BUN 40 H (7-17) mg/dL Creatinine 1.44 H (0.52-1.04) mg/dL Estimated GFR 37.3 ML/MIN Glucose 145 H (74-106) mg/dL Lactic Acid (0.4-2.0) Calcium 10.7 H (8.4-10.2) mg/dL Magnesium 2.4 H (1.6-2.3) mg/dL Total Bilirubin 0.50 (0.2-1.3) mg/dL AST 118 H (14-36) U/L ALT 57 H (0-35) U/L Alkaline Phosphatase 121 (38-126) U/L Troponin I 0.020 (0.000-0.034) ng/mL Serum Total Protein 7.5 (6.3-8.2) g/dL Albumin 4.2 (3.5-5.0) g/dL Lipase 173 (23-300) U/L Urine Color MARCELA (YELLOW) Urine Appearance SLIGHTLY CLOUDY (CLEAR) Urine pH 5.0 (5-6) Ur Specific [place] 1.024 (1.005-1.025) Urine Protein 30 (Negative) Urine Ketones TRACE (NEGATIVE) Urine Blood NEGATIVE (0-5) Ld/ul Urine Nitrite NEGATIVE (NEGATIVE) Urine Bilirubin NEGATIVE (NEGATIVE) Urine Urobilinogen 4 (0-1) mg/dL Ur Leukocyte Esterase MODERATE (NEGATIVE) Urine WBC (Auto) 6-10 (0-5) /HPF Urine RBC (Auto) 3-5 (0-2) /HPF U Hyaline Cast (Auto) 0-2 (0-2) /LPF U Epithel Cells (Auto) FEW (FEW) /HPF Urine Bacteria (Auto) MODERATE (NEGATIVE) /HPF U Non-Squamous Epi Cells RARE (FEW) /HPF Urine Mucus (Auto) SLIGHT (NEGATIVE) /HPF Urine Culture Reflexed YES (NO) Urine Glucose NEGATIVE (NEGATIVE) mg/dL Influenza Type A Ag (NEGATIVE) Influenza Type B Ag (NEGATIVE) RSV (PCR) (Negative) SARS-CoV-2 (PCR) (NEGATIVE) 02/19/21 02/19/21 Range/Units 15:28 15:28 WBC 10.3 (4.0-10.5) K/mm3 RBC 3.93 L (4.1-5.4) M/mm3 Hgb 10.7 L (12.0-16.0) gm/dl Hct 36.5 (35-47) % MCV 92.9 (78-100) fl MCH 27.2 (26-32) pg MCHC 29.3 L (32-36) g/dl RDW 16.1 H (11.5-14.0) % Plt Count 413 (150-450) K/mm3 MPV 10.9 (7.5-11.0) fl Gran % 76.9 H (36.0-66.0) % Eos # (Auto) 0.09 (0-0.5) Absolute Lymphs (auto) 1.52 (1.0-4.6) Absolute Monos (auto) 0.76 (0.0-1.3) Lymphocytes % 14.7 L (24.0-44.0) % Monocytes % 7.4 (0.0-12.0) % Eosinophils % 0.9 (0.00-5.0) % Basophils % 0.1 (0.0-0.4) % Absolute Granulocytes 7.94 H (1.4-6.9) Basophils # 0.01 (0-0.4) Sodium (137-145) mmol/L Potassium (3.5-5.1) mmol/L Chloride (98-107) mmol/L Carbon Dioxide (22-30) mmol/L Anion Gap (5-15) MEQ/L BUN (7-17) mg/dL Creatinine (0.52-1.04) mg/dL Estimated GFR ML/MIN Glucose (74-106) mg/dL Lactic Acid 3.1 H (0.4-2.0) Calcium (8.4-10.2) mg/dL Magnesium (1.6-2.3) mg/dL Total Bilirubin (0.2-1.3) mg/dL AST (14-36) U/L ALT (0-35) U/L Alkaline Phosphatase (38-126) U/L Troponin I (0.000-0.034) ng/mL Serum Total Protein (6.3-8.2) g/dL Albumin (3.5-5.0) g/dL Lipase (23-300) U/L Urine Color (YELLOW) Urine Appearance (CLEAR) Urine pH (5-6) Ur Specific [place] (1.005-1.025) Urine Protein (Negative) Urine Ketones (NEGATIVE) Urine Blood (0-5) Ld/ul Urine Nitrite (NEGATIVE) Urine Bilirubin (NEGATIVE) Urine Urobilinogen (0-1) mg/dL Ur Leukocyte Esterase (NEGATIVE) Urine WBC (Auto) (0-5) /HPF Urine RBC (Auto) (0-2) /HPF U Hyaline Cast (Auto) (0-2) /LPF U Epithel Cells (Auto) (FEW) /HPF Urine Bacteria (Auto) (NEGATIVE) /HPF U Non-Squamous Epi Cells (FEW) /HPF Urine Mucus (Auto) (NEGATIVE) /HPF Urine Culture Reflexed (NO) Urine Glucose (NEGATIVE) mg/dL Influenza Type A Ag (NEGATIVE) Influenza Type B Ag (NEGATIVE) RSV (PCR) (Negative) SARS-CoV-2 (PCR) (NEGATIVE) - Progress Progress: improved, re-examined Progress Note: 02/19/21 17:18 80 years old is evaluated for generalized weakness fatigue diarrhea and vasovaga l episode prior to arrival. Patient was hypotensive on presentation with a blood pressure 86, patient does have chronic hypertension and usually her blood pressure stays less than 100 per . She is given his fluid bolus, serum sodium is 148 and chloride 112 with some acute kidney injury. We will continue with the half-normal saline 155mL/h for next 1 L and will recheck serum sodium. Does have UTI and given dose of Rocephin as well. Patient is admitted to . Discussed with : Pascual Will see patient in: hospital (observation) Counseled pt/family regarding: lab results, diagnosis, rad results - Departure Departure Disposition: Observation Clinical Impression: Acute hypernatremia, LAZ (acute kidney injury), Gastroenteritis, Vasovagal episode UTI (urinary tract infection) Qualifiers: Urinary tract infection type: site unspecified Hematuria presence: without hematuria Qualified Code(s): N39.0 - Urinary tract infection, site not specified Condition: Stable Critical Care Time: No
[2021-02-19 17:59] LABS: INFLUENZA A NEGATIVE (NEGATIVE); INFLUENZA B NEGATIVE (NEGATIVE); RESPIRATORY SYNCTIAL VIRUS NEGATIVE (Negative)
[2021-02-19] MEDS ORDERED: Zofran 4 MG/2 ML VIAL IV PRN (18:28)
[2021-02-19] MEDS: Dextrose 5% -0.45 NaCl 1000 ML 1,000 ML IV SCH ×2 (18:54→23:38)
[2021-02-19] MEDS ORDERED: TYLENOL 325 MG PO PRN (22:46)
[2021-02-19] MEDS ORDERED: xanAX 0.5 MG PO PRN (22:47)
[2021-02-19] MEDS ORDERED: Namenda 5 MG PO SCH (22:49)
[2021-02-19] MEDS ORDERED: Zocor 10MG PO SCH (22:52)
[2021-02-20 03:42] LABS: ALBUMIN 3.2 g/dL (3.5-5.0); ANION GAP 8.8 MEQ/L (5-15); BILIRUBIN,TOTAL 0.3 mg/dL (0.2-1.3); Calcium 9.2 mg/dL (8.4-10.2); Creatinine 1 1.22 mg/dL (0.52-1.04); EST GLOMERULAR FILTRATION RATE 45.2 ML/MIN; Total Protein 6.3 g/dL (6.3-8.2)
[2021-02-20 04:01] LABS: Potassium 2.9 mmol/L (3.5-5.1)
[2021-02-20] MEDS: POTASSIUM CHLORIDE 20 mEq IN WATER 100ML 20 MEQ/100 ML BAG IV SCH ×2 (04:35→06:57)
[2021-02-20 05:15] LABS: Absolute Neutrophil Ct (ANC) 4.54 (1.4-6.9); BASOPHIL % 0.1 % (0.0-0.4); Basophil (Absolute #) 0.01 (0-0.4); Eosinophil % 2.4 % (0.00-5.0); Eosinophil (Absolute #) 0.17 (0-0.5); Hematocrit 28.3 % (35-47); Hemoglobin 8.3 gm/dl (12.0-16.0); Lymphocyte (Absolute #) 1.74 (1.0-4.6); Lymphocytes % 24.4 % (24.0-44.0); Mean Corpuscular Hemoglobin 27.6 pg (26-32); Mean Corpuscular Hgb Concent. 29.3 g/dl (32-36); Monocyte (Absolute #) 0.68 (0.0-1.3); Monocytes % 9.5 % (0.0-12.0); Neutrophil % 63.6 % (36.0-66.0); Platelet Count 309 K/mm3 (150-450); Red Blood Count 3.01 M/mm3 (4.1-5.4); Red Cell Distribution Width 15.8 % (11.5-14.0); White Blood Count 7.1 K/mm3 (4.0-10.5)
[2021-02-20] MEDS: Dextrose 5% -0.45 NaCl 1000 ML 1,000 ML IV SCH ×2 (07:02→16:53)
[2021-02-20] MEDS ORDERED: Dextrose 5% -0.45 NaCl 1000 ML 1,000 ML IV ONE (07:02)
[2021-02-20] MEDS: PROTONIX 40 MG IV IV SCH (11:02)
[2021-02-20] MEDS: ROCEPHIN 1 Gm-D5w 50 ml Bag** 1 G/50 ML IVPB IV SCH (11:03)
[2021-02-20 11:39] LABS: Hematocrit 26.1 % (35-47); Hemoglobin 7.7 gm/dl (12.0-16.0); Mean Cell Volume 93.9 fl (78-100); Mean Corpuscular Hemoglobin 27.7 pg (26-32); Mean Corpuscular Hgb Concent. 29.5 g/dl (32-36); Mean Platelet Volume 10.3 fl (7.5-11.0); Platelet Count 256 K/mm3 (150-450); Red Blood Count 2.78 M/mm3 (4.1-5.4); Red Cell Distribution Width 15.8 % (11.5-14.0); White Blood Count 5.7 K/mm3 (4.0-10.5)
[2021-02-20 11:51] LABS: ALBUMIN 2.9 g/dL (3.5-5.0); ALKALINE PHOSPHATASE 79 U/L (38-126); ANION GAP 9.7 MEQ/L (5-15); BLOOD UREA NITROGEN 27 mg/dL (7-17); CHLORIDE 114 mmol/L (98-107); Calcium 8.9 mg/dL (8.4-10.2); Carbon Dioxide 23 mmol/L (22-30); Creatinine 1 0.89 mg/dL (0.52-1.04); EST GLOMERULAR FILTRATION RATE > 60.0 ML/MIN; Glucose 117 mg/dL (74-106); Potassium 3.5 mmol/L (3.5-5.1); SGOT/AST 63 U/L (14-36); SGPT/ALT 38 U/L (0-35); SODIUM 144 mmol/L (137-145); Total Protein 5.7 g/dL (6.3-8.2)
[2021-02-20] MEDS ORDERED: Dulcolax 10 MG SUPP PR PRN (12:54)
[2021-02-20] MEDS ORDERED: OXYCODONE HCL 5 MG PO PRN (12:54)
[2021-02-20] MEDS ORDERED: MEDICATION INTERVENTION PO SCH (13:15)
[2021-02-20] MEDS: Senokot-S Tablet PO SCH ×2 (15:28→21:15)
[2021-02-20] MEDS: FOLTX (FOLBIC) PO SCH (15:28)
[2021-02-20] MEDS: ISOPTIN S.R. 240 MG PO SCH (15:28)
[2021-02-20] MEDS: CLARITIN 10 MG PO SCH (15:28)
[2021-02-20] MEDS: Zestril 5 MG PO SCH (15:29)
[2021-02-20] MEDS: Aricept 10 MG PO SCH (15:30)
[2021-02-20] MEDS: Ditropan XL 5 MG PO SCH (15:30)
[2021-02-20] MEDS: ENOXAPARIN SODIUM SQ SCH ×2 (15:33→21:16)
--- NOTE | 2021-02-20 17:20 | PCM.HP ---
History of Present Illness - Chief Complaint Chief Complaint: c/o diarrhea, confusion for 1 day History of Present Illness: is a 80 year old female.with severe dementia, cachexia, chronic hypertension is [facility] the [facility] after she was having diarrhea since morning with abdominal pain and while sitting on the commode she vasovagal, fainted. She is awake alert on presentation but according to [facility] she is not at her baseline. Earlier at [facility] labs were checked and her serum sodium was 154 and is getting fluids. Patient is moving all 4 extremities, mildly agitated and history is limited. Timing/Duration: today, gradual onset, worse Severity: moderate Associated Symptoms: abdominal pain, malaise, weakness - Review of Systems Constitutional: Lethargy, Weakness, No Fever, No Chills Eyes: No Symptoms Ears, Nose, & Throat: No Symptoms Respiratory: No Cough, No Short Of Breath Cardiac: No Chest Pain, No Edema, No Syncope Abdominal/Gastrointestinal: No Abdominal Pain, No Nausea, No Vomiting, No Diar milton Genitourinary Symptoms: No Dysuria Musculoskeletal: No Back Pain, No Neck Pain Skin: No Rash Neurological: No Dizziness, No Focal Weakness, No Sensory Changes Psychological: No Symptoms Endocrine: No Symptoms Hematologic/Lymphatic: No Symptoms Immunological/Allergic: No Symptoms Medications & Allergies Home Medications: Home Medication List Amitriptyline HCl 50 mg PO HS 10/18/14 [History Confirmed 02/19/21] Memantine HCl [Namenda] 10 mg PO HS 10/18/14 [History Confirmed 02/19/21] Rosuvastatin Calcium [Crestor] 5 mg PO HS 10/18/14 [History Confirmed 02/19/21] Cyanocobalamin/Folic AC/Vit B6 [Folbic Tablet] 1 tab PO DAILY 01/14/21 [History Confirmed 02/19/21] Donepezil HCl 10 mg [Aricept 10 MG] 10 mg PO DAILY 01/14/21 [History Confirmed 02/19/21] Loratadine 10 mg [Claritin 10 mg] 10 mg PO DAILY 01/14/21 [History Confirmed 02/19/21] Melatonin 10 mg PO HS 01/14/21 [History Confirmed 02/19/21] Oxybutynin Chloride Xl 5 mg [Ditropan XL 5 MG] 5 mg PO DAILY 01/14/21 [History Confirmed 02/19/21] ALPRAZolam [Alprazolam] 0.5 mg PO Q6H PRN PRN 02/19/21 [History Confirmed 02/19/21] Acetaminophen 325 mg [Tylenol 325 mg] 2 tablet PO Q6H PRN PRN 02/19/21 [History Confirmed 02/19/21] Bisacodyl [Dulcolax] 10 mg CA DAILY PRN PRN 02/19/21 [History Confirmed 02/19/21] Enoxaparin Sodium [Lovenox] 30 mg SQ BID 02/19/21 [History Confirmed 02/19/21] Oxycodone HCl 5 mg PO Q4H PRN PRN 02/19/21 [History Confirmed 02/19/21] Sennosides/Docusate Sodium [Senna Plus 8.6-50 mg Softgel] 1 tab PO BID 02/19/21 [History Confirmed 02/19/21] Verapamil HCl Sr 240 mg [Isoptin S.r. 240 mg] 240 mg PO DAILY 02/19/21 [History Confirmed 02/19/21] lisinopriL [Lisinopril] 5 mg PO DAILY 02/19/21 [History Confirmed 02/19/21] Allergies/Adverse Reactions: Allergies Allergy/AdvReac Type Severity Reaction Status Date / Time No Known Drug Allergies Allergy Verified 02/19/21 20:54 - Past Medical History Past Medical History: Yes Neurological History: Dementia ENT History: No Pertinent History Cardiac History: High Cholesterol, Hypertension Respiratory History: No Pertinent History Endocrine Medical History: No Pertinent History Musculoskelatal History: Fractures GI Medical History: No Pertinent History History: No Pertinent History Pyscho-Social History: No Pertinent History Reproductive Disorders: No Pertinent History Comment: right hip fx Jul 2020, right femur fx January 2021. Patient unable to provide medical hx. This nurse called and spoke with patient's spouse, Wagner, who assisted with medical hx as well as review of MMM information that was sent. - Female History Are you now?: No - Past Surgical History Past Surgical History: Yes Neuro Surgical History: No Pertinent History Cardiac History: No Pertinent History Respiratory Surgery: No Pertinent History GI Surgical History: No Pertinent History Genitourinary Surgical Hx: No Pertinent History Musculskeletal Surgical Hx: Joint Replacement, Orthopedic Surgery Female Surgical History: No Pertinent History Other Surgical History: Hebert knee repair. FX R hip repair Jul 2020 and R femur repair January 2021. - Social History Smoking Status: Former smoker How long have you smoked: years Exposure to second hand smoke: No Alcohol: None Drug Use: none Significant Family History: no pertinent family hx - Physical Exam Vital Signs: Vital Signs - 24 hr Temp Pulse Resp BP Pulse Ox 02/20/21 15:55 73 16 133/63 94 L 02/20/21 11:38 98.6 F 77 16 118/60 95 02/20/21 07:26 98.0 F 80 16 121/59 94 L 02/20/21 04:00 98.5 F 77 18 107/55 93 L 02/20/21 00:00 98.3 F 85 14 112/61 97 02/19/21 20:54 99.1 F 85 17 97/61 93 L 02/19/21 20:10 95 02/19/21 20:00 112/61 General Appearance: mild distress Neurologic Exam: alert, oriented x 3, cooperative, normal mood/affect, nml cerebellar function, nml station & gait, sensation nml, confusion, No motor deficits Eye Exam: PERRL/EOMI, eyes nml inspection Ears, Nose, Throat Exam: normal ENT inspection, TMs normal, pharynx normal, moist mucous membranes Neck Exam: normal inspection, non-tender, supple, full range of motion Respiratory Exam: normal breath sounds, lungs clear, No respiratory distress Cardiovascular Exam: regular rate/rhythm, normal heart sounds, normal peripheral pulses Gastrointestinal/Abdomen Exam: soft, normal bowel sounds, No tenderness, No mass Back Exam: normal inspection, normal range of motion, No CVA tenderness, No vertebral tenderness Extremity Exam: normal inspection, normal range of motion, pelvis stable Skin Exam: normal color, warm, dry, No rash Lymphatic Exam: No adenopathy Results - Labs Lab/Micro Results: Lab Results-Last 24 Hours 02/19/21 02/19/21 02/19/21 Range/Units 17:15 18:04 18:05 WBC (4.0-10.5) K/mm3 RBC (4.1-5.4) M/mm3 Hgb (12.0-16.0) gm/dl Hct (35-47) % MCV (78-100) fl MCH (26-32) pg MCHC (32-36) g/dl RDW (11.5-14.0) % Plt Count (150-450) K/mm3 MPV (7.5-11.0) fl Gran % (36.0-66.0) % Eos # (Auto) (0-0.5) Absolute Lymphs (auto) (1.0-4.6) Absolute Monos (auto) (0.0-1.3) Lymphocytes % (24.0-44.0) % Monocytes % (0.0-12.0) % Eosinophils % (0.00-5.0) % Basophils % (0.0-0.4) % Absolute Granulocytes (1.4-6.9) Basophils # (0-0.4) Sodium (137-145) mmol/L Potassium (3.5-5.1) mmol/L Chloride (98-107) mmol/L Carbon Dioxide (22-30) mmol/L Anion Gap (5-15) MEQ/L BUN (7-17) mg/dL Creatinine (0.52-1.04) mg/dL Estimated GFR ML/MIN Glucose (74-106) mg/dL POC Glucometer (74 to 106) mg/dL Hemoglobin A1c (4.5-6.0) % Lactic Acid 1.0 (0.4-2.0) Calcium (8.4-10.2) mg/dL Total Bilirubin (0.2-1.3) mg/dL AST (14-36) U/L ALT (0-35) U/L Alkaline Phosphatase (38-126) U/L Troponin I 0.017 (0.000-0.034) ng/mL Serum Total Protein (6.3-8.2) g/dL Albumin (3.5-5.0) g/dL Influenza Type A Ag NEGATIVE (NEGATIVE) Influenza Type B Ag NEGATIVE (NEGATIVE) RSV (PCR) NEGATIVE (Negative) SARS-CoV-2 (PCR) NEGATIVE (NEGATIVE) 02/19/21 02/19/21 02/20/21 Range/Units 20:34 21:25 00:29 WBC (4.0-10.5) K/mm3 RBC (4.1-5.4) M/mm3 Hgb (12.0-16.0) gm/dl Hct (35-47) % MCV (78-100) fl MCH (26-32) pg MCHC (32-36) g/dl RDW (11.5-14.0) % Plt Count (150-450) K/mm3 MPV (7.5-11.0) fl Gran % (36.0-66.0) % Eos # (Auto) (0-0.5) Absolute Lymphs (auto) (1.0-4.6) Absolute Monos (auto) (0.0-1.3) Lymphocytes % (24.0-44.0) % Monocytes % (0.0-12.0) % Eosinophils % (0.00-5.0) % Basophils % (0.0-0.4) % Absolute Granulocytes (1.4-6.9) Basophils # (0-0.4) Sodium (137-145) mmol/L Potassium (3.5-5.1) mmol/L Chloride (98-107) mmol/L Carbon Dioxide (22-30) mmol/L Anion Gap (5-15) MEQ/L BUN (7-17) mg/dL Creatinine (0.52-1.04) mg/dL Estimated GFR ML/MIN Glucose (74-106) mg/dL POC Glucometer 109 H (74 to 106) mg/dL Hemoglobin A1c (4.5-6.0) % Lactic Acid (0.4-2.0) Calcium (8.4-10.2) mg/dL Total Bilirubin (0.2-1.3) mg/dL AST (14-36) U/L ALT (0-35) U/L Alkaline Phosphatase (38-126) U/L Troponin I 0.014 0.016 (0.000-0.034) ng/mL Serum Total Protein (6.3-8.2) g/dL Albumin (3.5-5.0) g/dL Influenza Type A Ag (NEGATIVE) Influenza Type B Ag (NEGATIVE) RSV (PCR) (Negative) SARS-CoV-2 (PCR) (NEGATIVE) 02/20/21 02/20/21 02/20/21 Range/Units 02:06 03:27 03:27 WBC 7.1 (4.0-10.5) K/mm3 RBC 3.01 L (4.1-5.4) M/mm3 Hgb 8.3 L D (12.0-16.0) gm/dl Hct 28.3 L (35-47) % MCV 94.0 (78-100) fl MCH 27.6 (26-32) pg MCHC 29.3 L (32-36) g/dl RDW 15.8 H (11.5-14.0) % Plt Count 309 (150-450) K/mm3 MPV 11.0 (7.5-11.0) fl Gran % 63.6 (36.0-66.0) % Eos # (Auto) 0.17 (0-0.5) Absolute Lymphs (auto) 1.74 (1.0-4.6) Absolute Monos (auto) 0.68 (0.0-1.3) Lymphocytes % 24.4 (24.0-44.0) % Monocytes % 9.5 (0.0-12.0) % Eosinophils % 2.4 (0.00-5.0) % Basophils % 0.1 (0.0-0.4) % Absolute Granulocytes 4.54 (1.4-6.9) Basophils # 0.01 (0-0.4) Sodium (137-145) mmol/L Potassium (3.5-5.1) mmol/L Chloride (98-107) mmol/L Carbon Dioxide (22-30) mmol/L Anion Gap (5-15) MEQ/L BUN (7-17) mg/dL Creatinine (0.52-1.04) mg/dL Estimated GFR ML/MIN Glucose (74-106) mg/dL POC Glucometer 129 H (74 to 106) mg/dL Hemoglobin A1c (4.5-6.0) % Lactic Acid (0.4-2.0) Calcium (8.4-10.2) mg/dL Total Bilirubin (0.2-1.3) mg/dL AST (14-36) U/L ALT (0-35) U/L Alkaline Phosphatase (38-126) U/L Troponin I 0.014 (0.000-0.034) ng/mL Serum Total Protein (6.3-8.2) g/dL Albumin (3.5-5.0) g/dL Influenza Type A Ag (NEGATIVE) Influenza Type B Ag (NEGATIVE) RSV (PCR) (Negative) SARS-CoV-2 (PCR) (NEGATIVE) 02/20/21 02/20/21 02/20/21 Range/Units 03:27 07:01 11:30 WBC 5.7 (4.0-10.5) K/mm3 RBC 2.78 L (4.1-5.4) M/mm3 Hgb 7.7 L (12.0-16.0) gm/dl Hct 26.1 L (35-47) % MCV 93.9 (78-100) fl MCH 27.7 (26-32) pg MCHC 29.5 L (32-36) g/dl RDW 15.8 H (11.5-14.0) % Plt Count 256 (150-450) K/mm3 MPV 10.3 (7.5-11.0) fl Gran % (36.0-66.0) % Eos # (Auto) (0-0.5) Absolute Lymphs (auto) (1.0-4.6) Absolute Monos (auto) (0.0-1.3) Lymphocytes % (24.0-44.0) % Monocytes % (0.0-12.0) % Eosinophils % (0.00-5.0) % Basophils % (0.0-0.4) % Absolute Granulocytes (1.4-6.9) Basophils # (0-0.4) Sodium 144 (137-145) mmol/L Potassium 2.9 L* (3.5-5.1) mmol/L Chloride 113 H (98-107) mmol/L Carbon Dioxide 25 (22-30) mmol/L Anion Gap 8.8 (5-15) MEQ/L BUN 37 H (7-17) mg/dL Creatinine 1.22 H (0.52-1.04) mg/dL Estimated GFR 45.2 ML/MIN Glucose 114 H (74-106) mg/dL POC Glucometer 100 (74 to 106) mg/dL Hemoglobin A1c (4.5-6.0) % Lactic Acid (0.4-2.0) Calcium 9.2 (8.4-10.2) mg/dL Total Bilirubin 0.30 (0.2-1.3) mg/dL AST 75 H (14-36) U/L ALT 41 H (0-35) U/L Alkaline Phosphatase 86 (38-126) U/L Troponin I (0.000-0.034) ng/mL Serum Total Protein 6.3 (6.3-8.2) g/dL Albumin 3.2 L (3.5-5.0) g/dL Influenza Type A Ag (NEGATIVE) Influenza Type B Ag (NEGATIVE) RSV (PCR) (Negative) SARS-CoV-2 (PCR) (NEGATIVE) 02/20/21 02/20/21 02/20/21 Range/Units 11:30 11:33 11:40 WBC (4.0-10.5) K/mm3 RBC (4.1-5.4) M/mm3 Hgb (12.0-16.0) gm/dl Hct (35-47) % MCV (78-100) fl MCH (26-32) pg MCHC (32-36) g/dl RDW (11.5-14.0) % Plt Count (150-450) K/mm3 MPV (7.5-11.0) fl Gran % (36.0-66.0) % Eos # (Auto) (0-0.5) Absolute Lymphs (auto) (1.0-4.6) Absolute Monos (auto) (0.0-1.3) Lymphocytes % (24.0-44.0) % Monocytes % (0.0-12.0) % Eosinophils % (0.00-5.0) % Basophils % (0.0-0.4) % Absolute Granulocytes (1.4-6.9) Basophils # (0-0.4) Sodium 144 (137-145) mmol/L Potassium 3.5 D (3.5-5.1) mmol/L Chloride 114 H (98-107) mmol/L Carbon Dioxide 23 (22-30) mmol/L Anion Gap 9.7 (5-15) MEQ/L BUN 27 H (7-17) mg/dL Creatinine 0.89 (0.52-1.04) mg/dL Estimated GFR > 60.0 ML/MIN Glucose 117 H (74-106) mg/dL POC Glucometer 121 H (74 to 106) mg/dL Hemoglobin A1c 5.67 (4.5-6.0) % Lactic Acid (0.4-2.0) Calcium 8.9 (8.4-10.2) mg/dL Total Bilirubin 0.20 (0.2-1.3) mg/dL AST 63 H (14-36) U/L ALT 38 H (0-35) U/L Alkaline Phosphatase 79 (38-126) U/L Troponin I (0.000-0.034) ng/mL Serum Total Protein 5.7 L (6.3-8.2) g/dL Albumin 2.9 L (3.5-5.0) g/dL Influenza Type A Ag (NEGATIVE) Influenza Type B Ag (NEGATIVE) RSV (PCR) (Negative) SARS-CoV-2 (PCR) (NEGATIVE) 02/20/21 Range/Units 16:17 WBC (4.0-10.5) K/mm3 RBC (4.1-5.4) M/mm3 Hgb (12.0-16.0) gm/dl Hct (35-47) % MCV (78-100) fl MCH (26-32) pg MCHC (32-36) g/dl RDW (11.5-14.0) % Plt Count (150-450) K/mm3 MPV (7.5-11.0) fl Gran % (36.0-66.0) % Eos # (Auto) (0-0.5) Absolute Lymphs (auto) (1.0-4.6) Absolute Monos (auto) (0.0-1.3) Lymphocytes % (24.0-44.0) % Monocytes % (0.0-12.0) % Eosinophils % (0.00-5.0) % Basophils % (0.0-0.4) % Absolute Granulocytes (1.4-6.9) Basophils # (0-0.4) Sodium (137-145) mmol/L Potassium (3.5-5.1) mmol/L Chloride (98-107) mmol/L Carbon Dioxide (22-30) mmol/L Anion Gap (5-15) MEQ/L BUN (7-17) mg/dL Creatinine (0.52-1.04) mg/dL Estimated GFR ML/MIN Glucose (74-106) mg/dL POC Glucometer 112 H (74 to 106) mg/dL Hemoglobin A1c (4.5-6.0) % Lactic Acid (0.4-2.0) Calcium (8.4-10.2) mg/dL Total Bilirubin (0.2-1.3) mg/dL AST (14-36) U/L ALT (0-35) U/L Alkaline Phosphatase (38-126) U/L Troponin I (0.000-0.034) ng/mL Serum Total Protein (6.3-8.2) g/dL Albumin (3.5-5.0) g/dL Influenza Type A Ag (NEGATIVE) Influenza Type B Ag (NEGATIVE) RSV (PCR) (Negative) SARS-CoV-2 (PCR) (NEGATIVE) Microbiology 02/19/21 15:57 Urine Culture - Preliminary Clean Catch Midstream GRAM POSITIVE ID AND SENSITIVITY PENDING Accuchecks Date 02/20/21 Date 02/20/21 Date 02/20/21 Date 02/19/21 Time 16:21 Time 11:38 Time 07:41 Time 22:00 - Radiology Impressions Radiology Exams & Impressions: Radiology Procedures Category Date Time Status ABDOMEN AND PELVIS W/0 CONTRAS [CT] Stat Exams 02/19/21 15:29 Completed CHEST 1 VIEW (PORTABLE) Stat Exams 02/19/21 15:29 Completed Assessment/Plan (1) Dehydration with hypernatremia Current Visit: Yes Status: Acute Assessment & Plan: Chief Complaint Diagnosis hypernatremia Allergies Allergy/AdvReac Type Severity Reaction Status Date / Time No Known Drug Allergies Allergy Verified 02/19/21 20:54 Vital Signs (Last 24 hours) Temp Pulse Resp BP Pulse Ox 02/20/21 15:55 73 16 133/63 94 L 02/20/21 11:38 98.6 F 77 16 118/60 95 02/20/21 07:26 98.0 F 80 16 121/59 94 L 02/20/21 04:00 98.5 F 77 18 107/55 93 L 02/20/21 00:00 98.3 F 85 14 112/61 97 02/19/21 20:54 99.1 F 85 17 97/61 93 L 02/19/21 20:10 95 02/19/21 20:00 112/61 Home Medications Medication Instructions Recorded Confirmed Last Taken Type ALPRAZolam [Alprazolam] 0.5 mg PO Q6H PRN PRN 02/19/21 02/19/21 Unknown History Acetaminophen 325 mg [Tylenol 2 tablet PO Q6H PRN PRN 02/19/21 02/19/21 Unknown History 325 mg] Bisacodyl [Dulcolax] 10 mg CA DAILY PRN PRN 02/19/21 02/19/21 Unknown History Enoxaparin Sodium [Lovenox] 30 mg SQ BID 02/19/21 02/19/21 Unknown History Oxycodone HCl 5 mg PO Q4H PRN PRN 02/19/21 02/19/21 Unknown History Sennosides/Docusate Sodium [Senna 1 tab PO BID 02/19/21 02/19/21 Unknown History Plus 8.6-50 mg Softgel] Verapamil HCl Sr 240 mg 240 mg PO DAILY 02/19/21 02/19/21 Unknown History [Isoptin S.r. 240 mg] lisinopriL [Lisinopril] 5 mg PO DAILY 02/19/21 02/19/21 Unknown History Current Medications Generic Name Dose Route Start Last Admin Trade Name Freq PRN Reason Stop Dose Admin Acetaminophen 650 mg 02/19/21 22:46 Tylenol 325 Mg PO 03/21/21 22:45 Q6H PRN PRN general discomfort Alprazolam 0.5 mg 02/19/21 22:47 Xanax 0.5 Mg PO 03/21/21 22:46 Q6H PRN PRN ANXIETY Amitriptyline HCl 50 mg 02/20/21 22:00 Amitriptyline Hcl 50 Mg Tablet PO 03/22/21 21:59 HS ÓSCAR Bisacodyl 10 mg 02/20/21 12:54 Dulcolax 10 Mg Supp CA 03/22/21 12:53 DAILY PRN PRN CONSTIPATION Donepezil HCl 10 mg 02/20/21 13:00 02/20/21 15:30 Aricept 10 Mg PO 03/22/21 12:59 10 mg DAILY ÓSCAR Administration Enoxaparin Sodium 30 mg 02/20/21 13:00 02/20/21 15:33 Enoxaparin Sodium SQ 03/22/21 12:59 30 mg BID ÓSCAR Administration Folic Acid 1 tab 02/20/21 13:00 02/20/21 15:28 Foltx (Folbic) PO 03/22/21 12:59 Not Given DAILY ÓSCAR Dextrose/Sodium Chloride 1,000 mls @ 100 mls/hr 02/19/21 18:28 02/20/21 16:53 Dextrose 5% -0.45 Nacl 1000 Ml IV 03/21/21 18:27 100 mls/hr .Q10H ÓSCAR Administration Ceftriaxone Sodium/Dextrose 1 g in 50 mls @ 100 mls/hr 02/20/21 10:00 02/20/21 11:03 Rocephin 1 Gm-D5w 50 Ml Bag IV 02/23/21 09:59 100 mls/hr Q24H10 ÓSCAR Administration Lisinopril 5 mg 02/20/21 13:00 02/20/21 15:29 Zestril 5 Mg PO 03/22/21 12:59 Not Given DAILY ÓSCAR Loratadine 10 mg 02/20/21 13:00 02/20/21 15:28 Claritin 10 Mg PO 03/22/21 12:59 Not Given DAILY ÓSCAR Memantine 10 mg 02/20/21 22:00 Namenda 5 Mg PO 03/22/21 21:59 HS [facility] Miscellaneous Information 1 each 02/20/21 13:15 Medication Intervention PO 03/22/21 13:14 .RN TO CHECK ON ÓSCAR Ondansetron HCl 4 mg 02/19/21 18:28 Zofran 4 Mg/2 Ml Vial IV 03/21/21 18:27 Q6H PRN PRN NAUSEA/VOMITING Oxybutynin Chloride 5 mg 02/20/21 13:00 02/20/21 15:30 Ditropan Xl 5 Mg PO 03/22/21 12:59 5 mg DAILY ÓSCAR Administration Oxycodone HCl 5 mg 02/20/21 13:05 Oxy-Ir 5 Mg PO 02/25/21 13:04 Q4H PRN PRN MODERATE TO SEVERE PAIN Pantoprazole Sodium 40 mg 02/20/21 10:00 02/20/21 11:02 Protonix 40 Mg Iv IV 03/22/21 09:59 40 mg Q24H10 ÓSCAR Administration Senna/Docusate Sodium 1 udtab 02/20/21 13:00 02/20/21 15:28 Senokot-S Tablet PO 03/22/21 12:59 Not Given BID ÓSCAR Simvastatin 10 mg 02/20/21 22:00 Zocor 10mg PO 03/22/21 21:59 HS ÓSCAR Verapamil HCl 240 mg 02/20/21 13:00 02/20/21 15:28 Isoptin S.R. 240 Mg PO 03/22/21 12:59 Not Given DAILY ÓSCAR Discontinued Medications Generic Name Dose Route Start Last Admin Trade Name Freq PRN Reason Stop Dose Admin Amitriptyline HCl 50 mg 02/19/21 22:49 02/19/21 23:39 Amitriptyline Hcl 50 Mg Tablet PO 03/21/21 22:48 Not Given HS ÓSCAR Sodium Chloride 500 mls @ 500 mls/hr 02/19/21 15:30 02/19/21 16:42 Sodium Chloride 0.9% 500 Ml IV 02/19/21 16:29 Infused .Q1H ONE Infusion Sodium Chloride Confirm 02/19/21 15:39 Sodium Chloride 0.9% 500 Ml Administered 02/19/21 15:40 Dose 500 mls @ ud IV .STK-MED ONE Ceftriaxone Sodium/Dextrose 1 g in 50 mls @ 100 mls/hr 02/19/21 17:02 02/19/21 17:41 Rocephin 1 Gm-D5w 50 Ml Bag IV 02/19/21 17:31 Infused STAT STA Infusion Ceftriaxone Sodium/Dextrose Confirm 02/19/21 17:05 Rocephin 1 Gm-D5w 50 Ml Bag Administered 02/19/21 17:06 Dose 1 g in 50 mls @ ud IV .STK-MED ONE Potassium Chloride/Sodium Chloride 1,000 mls @ 155 mls/hr 02/19/21 17:15 02/19/21 18:54 Sodium Chloride 0.45% W/ 20 Meq Kcl IV 03/21/21 17:14 Not Given .Q6H28M ÓSCAR Sodium Chloride Confirm 02/19/21 18:39 Sodium Chloride 0.45% 1000 Ml Administered 02/19/21 18:40 Dose 1,000 mls @ ud IV .STK-MED ONE Sodium Chloride 1,000 mls @ 155 mls/hr 02/19/21 19:00 02/19/21 18:46 Sodium Chloride 0.45% 1000 Ml IV 02/19/21 20:00 155 mls/hr .Q6H28M ÓCSAR Administration Potassium Chloride 20 meq in 100 mls @ 50 mls/hr 02/20/21 04:30 02/20/21 06:57 Potassium Chloride 20 Meq In Water 100ml IV 02/20/21 08:29 50 mls/hr Q2H ÓSCAR Administration Dextrose/Sodium Chloride Confirm 02/20/21 07:02 Dextrose 5% -0.45 Nacl 1000 Ml Administered 02/20/21 07:03 Dose 1,000 mls @ ud IV .STK-MED ONE Memantine 10 mg 02/19/21 22:49 02/19/21 23:39 Namenda 5 Mg PO 03/21/21 22:48 Not Given HS ÓSCAR Simvastatin 10 mg 02/19/21 22:52 02/19/21 23:39 Zocor 10mg PO 03/21/21 22:51 Not Given HS ÓSCAR Intake & Output (Last 24 hours) 02/18/21 02/19/21 02/20/21 02/21/21 11:59 11:59 11:59 11:59 Intake Total 1569 240 Output Total 200 Balance 1369 240 Weight 45.4 kg Microbiology Results (Last 24 hours) 02/19/21 15:57 Clean Catch Midstream Urine Culture - Preliminary GRAM POSITIVE ID AND SENSITIVITY PENDING 02/20/21 03:00 Urine, Catheterized Urine Culture - Pending 02/19/21 16:28 Blood Blood Culture Gram Stain - Pending 02/19/21 16:28 Blood Blood Culture - Pending 02/19/21 16:12 Blood Blood Culture Gram Stain - Pending 02/19/21 16:12 Blood Blood Culture - Pending Laboratory Results (Last 24 hours) 02/20/21 02/20/21 02/20/21 16:17 11:40 11:33 WBC RBC Hgb Hct MCV MCH MCHC RDW Plt Count MPV Gran % Eos # (Auto) Absolute Lymphs (auto) Absolute Monos (auto) Lymphocytes % Monocytes % Eosinophils % Basophils % Absolute Granulocytes Basophils # Sodium Potassium Chloride Carbon Dioxide Anion Gap BUN Creatinine Estimated GFR Glucose POC Glucometer 112 H 121 H Hemoglobin A1c 5.67 Lactic Acid Calcium Total Bilirubin AST ALT Alkaline Phosphatase Troponin I Serum Total Protein Albumin Influenza Type A Ag Influenza Type B Ag RSV (PCR) SARS-CoV-2 (PCR) 02/20/21 02/20/21 02/20/21 11:30 11:30 07:01 WBC 5.7 RBC 2.78 L Hgb 7.7 L Hct 26.1 L MCV 93.9 MCH 27.7 MCHC 29.5 L RDW 15.8 H Plt Count 256 MPV 10.3 Gran % Eos # (Auto) Absolute Lymphs (auto) Absolute Monos (auto) Lymphocytes % Monocytes % Eosinophils % Basophils % Absolute Granulocytes Basophils # Sodium 144 Potassium 3.5 D Chloride 114 H Carbon Dioxide 23 Anion Gap 9.7 BUN 27 H Creatinine 0.89 Estimated GFR > 60.0 Glucose 117 H POC Glucometer 100 Hemoglobin A1c Lactic Acid Calcium 8.9 Total Bilirubin 0.20 AST 63 H ALT 38 H Alkaline Phosphatase 79 Troponin I Serum Total Protein 5.7 L Albumin 2.9 L Influenza Type A Ag Influenza Type B Ag RSV (PCR) SARS-CoV-2 (PCR) 02/20/21 02/20/21 02/20/21 03:27 03:27 03:27 WBC 7.1 RBC 3.01 L Hgb 8.3 L D Hct 28.3 L MCV 94.0 MCH 27.6 MCHC 29.3 L RDW 15.8 H Plt Count 309 MPV 11.0 Gran % 63.6 Eos # (Auto) 0.17 Absolute Lymphs (auto) 1.74 Absolute Monos (auto) 0.68 Lymphocytes % 24.4 Monocytes % 9.5 Eosinophils % 2.4 Basophils % 0.1 Absolute Granulocytes 4.54 Basophils # 0.01 Sodium 144 Potassium 2.9 L* Chloride 113 H Carbon Dioxide 25 Anion Gap 8.8 BUN 37 H Creatinine 1.22 H Estimated GFR 45.2 Glucose 114 H POC Glucometer Hemoglobin A1c Lactic Acid Calcium 9.2 Total Bilirubin 0.30 AST 75 H ALT 41 H Alkaline Phosphatase 86 Troponin I 0.014 Serum Total Protein 6.3 Albumin 3.2 L Influenza Type A Ag Influenza Type B Ag RSV (PCR) SARS-CoV-2 (PCR) 02/20/21 02/20/21 02/19/21 02:06 00:29 21:25 WBC RBC Hgb Hct MCV MCH MCHC RDW Plt Count MPV Gran % Eos # (Auto) Absolute Lymphs (auto) Absolute Monos (auto) Lymphocytes % Monocytes % Eosinophils % Basophils % Absolute Granulocytes Basophils # Sodium Potassium Chloride Carbon Dioxide Anion Gap BUN Creatinine Estimated GFR Glucose POC Glucometer 129 H Hemoglobin A1c Lactic Acid Calcium Total Bilirubin AST ALT Alkaline Phosphatase Troponin I 0.016 0.014 Serum Total Protein Albumin Influenza Type A Ag Influenza Type B Ag RSV (PCR) SARS-CoV-2 (PCR) 02/19/21 02/19/21 02/19/21 20:34 18:05 18:04 WBC RBC Hgb Hct MCV MCH MCHC RDW Plt Count MPV Gran % Eos # (Auto) Absolute Lymphs (auto) Absolute Monos (auto) Lymphocytes % Monocytes % Eosinophils % Basophils % Absolute Granulocytes Basophils # Sodium Potassium Chloride Carbon Dioxide Anion Gap BUN Creatinine Estimated GFR Glucose POC Glucometer 109 H Hemoglobin A1c Lactic Acid 1.0 Calcium Total Bilirubin AST ALT Alkaline Phosphatase Troponin I 0.017 Serum Total Protein Albumin Influenza Type A Ag Influenza Type B Ag RSV (PCR) SARS-CoV-2 (PCR) 02/19/21 17:15 WBC RBC Hgb Hct MCV MCH MCHC RDW Plt Count MPV Gran % Eos # (Auto) Absolute Lymphs (auto) Absolute Monos (auto) Lymphocytes % Monocytes % Eosinophils % Basophils % Absolute Granulocytes Basophils # Sodium Potassium Chloride Carbon Dioxide Anion Gap BUN Creatinine Estimated GFR Glucose POC Glucometer Hemoglobin A1c Lactic Acid Calcium Total Bilirubin AST ALT Alkaline Phosphatase Troponin I Serum Total Protein Albumin Influenza Type A Ag NEGATIVE Influenza Type B Ag NEGATIVE RSV (PCR) NEGATIVE SARS-CoV-2 (PCR) NEGATIVE Orders (Last 24 hours) Category Date Time Status Activity [Up in Chair] TID Activity 02/20/21 15:57 Active Catheter Care Record Q6H Care 02/20/21 08:00 Active Code Status Order ROUTINE Care 02/19/21 18:28 Active [facility] [Catheter-[place] [facility]] STAT Care 02/20/21 02:50 Active IV Care Q6H Care 02/19/21 18:28 Active Miscellaneous Nursing Order ROUTINE Care 02/19/21 22:45 Active Neuro Checks Q2H Care 02/19/21 18:28 Active POCT Glucose Check ACHS Care 02/19/21 18:[address] in Observation ROUTINE Care 02/19/21 18:28 Active Walter Hose, Apply ROUTINE Care 02/19/21 18:28 Active Weight,Daily 0600 Care 02/19/21 18:28 Active Infection Control Consult ROUTINE Cons 02/20/21 03:12 Active Pureed Diet Diet 02/20/21 Breakfast Active BLOOD CULTURE Stat Lab 02/19/21 16:28 Received BMP AM.LAB Lab 02/20/21 03:27 Completed CBC Urgent Lab 02/20/21 11:30 Completed CBC W DIFF AM.LAB Lab 02/20/21 03:27 Completed CMP AM.LAB Lab 02/20/21 03:27 Completed CMP Urgent Lab 02/20/21 11:30 Completed CULTURE,URINE Routine Lab 02/20/21 03:00 Received HEMOGLOBIN A1C Urgent Lab 02/20/21 11:40 Completed Lactic Acid Stat Lab 02/19/21 18:04 Completed POCT GLUCOSE Stat Lab 02/19/21 20:34 Completed POCT GLUCOSE Stat Lab 02/20/21 02:06 Completed POCT GLUCOSE Stat Lab 02/20/21 07:01 Completed POCT GLUCOSE Stat Lab 02/20/21 11:33 Completed POCT GLUCOSE Stat Lab 02/20/21 16:17 Completed TROPONIN Q3H Lab 02/19/21 18:05 Completed TROPONIN Q3H Lab 02/19/21 21:25 Completed TROPONIN Q3H Lab 02/20/21 00:29 Completed TROPONIN Q3H Lab 02/20/21 03:27 Completed ALPRAZolam 0.5 MG [xanAX 0.5 MG] Med 02/19/21 22:47 Active 0.5 mg PO Q6H PRN PRN AMITRIPTYLINE HCL 50 mg Tab [AMITRIPTYLINE HCL 50 mg Med 02/19/21 22:49 Discontinued Tablet] 50 mg PO HS AMITRIPTYLINE HCL 50 mg Tab [AMITRIPTYLINE HCL 50 mg Med 02/20/21 22:00 Active Tablet] 50 mg PO HS Acetaminophen 325 mg [Tylenol 325 mg] Med 02/19/21 22:46 Active 650 mg PO Q6H PRN PRN Bisacodyl 10 mg [Dulcolax 10 MG SUPP] Med 02/20/21 12:54 Active 10 mg CA DAILY PRN PRN Ceftriaxone 1 GM/50 ML PREMIX* [ROCEPHIN 1 Gm-D5w 50 ml Med 02/20/21 10:00 Active Bag] 1 g in 50 ml IV Q24H10 Ceftriaxone 1 GM/50 ML PREMIX* [ROCEPHIN 1 Gm-D5w 50 ml Med 02/19/21 17:02 Discontinued Bag] 1 g in 50 ml IV STAT Ceftriaxone 1 GM/50 ML PREMIX* [ROCEPHIN 1 Gm-D5w 50 ml Med 02/19/21 17:05 Discontinued Bag] 1 g in 50 ml IV UD D5w-0.45 NaCl 1000 ml [Dextrose 5% -0.45 NaCl 1000 ML] Med 02/19/21 18:28 Active 1,000 ml IV 100 mls/hr D5w-0.45 NaCl 1000 ml [Dextrose 5% -0.45 NaCl 1000 ML] Med 02/20/21 07:02 Discontinued 1,000 ml IV UD Donepezil HCl 10 mg [Aricept 10 MG] Med 02/20/21 13:00 Active 10 mg PO DAILY Enoxaparin Sodium [Enoxaparin Sodium] Med 02/20/21 13:00 Active 30 mg SQ BID Folic Acid/Vitamin B Comp W-C* [Foltx (Folbic)] Med 02/20/21 13:00 Active 1 tab PO DAILY Lisinopril 5 mg [Zestril 5 MG] Med 02/20/21 13:00 Active 5 mg PO DAILY Loratadine 10 mg [Claritin 10 mg] Med 02/20/21 13:00 Active 10 mg PO DAILY Medication Intervention Med 02/20/21 13:15 Active 1 each PO .RN TO CHECK ON Memantine HCl 5 mg [Namenda 5 MG] Med 02/19/21 22:49 Discontinued 10 mg PO HS Memantine HCl 5 mg [Namenda 5 MG] Med 02/20/21 22:00 Active 10 mg PO HS NaCl 0.45% 1000 ml + KCl 20Meq [SODIUM CHLORIDE 0.45% W Med 02/19/21 17:15 Discontinued / 20 mEq KCL] 1,000 ml IV 155 mls/hr NaCl 0.45% 1000 ml [Sodium Chloride 0.45% 1000 ML] 1, Med 02/19/21 19:00 Discontinued 000 ml IV 155 mls/hr NaCl 0.45% 1000 ml [Sodium Chloride 0.45% 1000 ML] 1, Med 02/19/21 18:39 Discontinued 000 ml IV UD Ondansetron HCl 4 mg/2 ml [Zofran 4 MG/2 ML VIAL] Med 02/19/21 18:28 Active 4 mg IV Q6H PRN PRN Oxybutynin Chloride Xl 5 mg [Ditropan XL 5 MG] Med 02/20/21 13:00 Active 5 mg PO DAILY Oxycodone HCl 5 mg Ir [Oxy-IR 5 MG] Med 02/20/21 13:05 Active 5 mg PO Q4H PRN PRN Pantoprazole 40 mg [Protonix 40 mg IV] Med 02/20/21 10:00 Active 40 mg IV Q24H10 Potassium Chloride 20Meq/100Ml [POTASSIUM CHLORIDE 20 Med 02/20/21 04:30 Discontinued mEq IN WATER 100ML] 20 meq in 100 ml IV Q2H Senna/Docusate Sodium Tab [Senokot-S Tablet] Med 02/20/21 13:00 Active 1 udtab PO BID Simvastatin 10 mg [Zocor 10MG] Med 02/19/21 22:52 Discontinued 10 mg PO HS Simvastatin 10 mg [Zocor 10MG] Med 02/20/21 22:00 Active 10 mg PO HS Verapamil HCl Sr 240 mg [Isoptin S.r. 240 mg] Med 02/20/21 13:00 Active 240 mg PO DAILY Patient Care Notes (Last 24 hours) 02/20/21 15:56 Case Management Note by Neelam Simon SPOKE WITH KAMI AT [facility], REPORTS THAT PT WILL HAVE TO BE RE-CERTED PRIOR TO BEING ABLE TO RETURN TO REHAB. REQUESTS CLINICAL AT THIS TIME. Initialized on 02/20/21 15:56 - END OF NOTE 02/20/21 04:28 Nursing Note by Susie Bernal This nurse called Dr. Schreiber and reported patient's critical potassium level of 2.9. Order received for 2 20mEq K-riders. Initialized on 02/20/21 04:28 - END OF NOTE 02/20/21 02:47 Nursing Note by Susie Bernal This nurse contacted Dr. Schreiber and notified him that patient is lethargic which is a change for her. Patient has also not urinated since admission. Order received to place conrad catheter. Addendum entered by Susie Bernal 02/20/21 02:49: Patient more lethargic around 0130. Blood glucose obtained and was WNL BP 94/54 HR 70. Initialized on 02/20/21 02:47 - END OF NOTE 02/19/21 23:25 Nursing Note by Susie Bernal Patient sat in upright position and offered water with a straw. Patient drank water from straw without any difficulty or S/S aspiration. Initialized on 02/19/21 23:25 - END OF NOTE 02/19/21 22:41 Nursing Note by Susie Bernal This nurse called Dr. Schreiber but no answer, message left at [phone]. This nurse called Dr. Schreiber at [phone]. Informed him of patient's BP 85/52. Unable to assess for symptoms due to dementia. Reported most recent sodium level. Discussed home meds and night time and PRN meds were ordered. Initialized on 02/19/21 22:41 - END OF NOTE 02/19/21 20:45 Nursing Note by Susie Bernal This nurse called and spoke with patient's , Wagner Phelan ([phone]). Information obtained for admission. This nurse [facility] for MAR so that last dose of medications could be known. Nurse at [facility] to fax MAR HATTIE. Initialized on 02/19/21 20:45 - END OF NOTE Code(s): E86.0 - DEHYDRATION; E87.0 - HYPEROSMOLALITY AND HYPERNATREMIA (2) LAZ (acute kidney injury) Current Visit: Yes Status: Acute Code(s): N17.9 - ACUTE KIDNEY FAILURE, UNSPECIFIED (3) Acute hypernatremia Current Visit: Yes Status: Acute Code(s): E87.0 - HYPEROSMOLALITY AND HYPERNATREMIA (4) Hypokalemia Current Visit: No Status: Acute Code(s): E87.6 - HYPOKALEMIA (5) Diarrhea Current Visit: No Status: Resolved Code(s): R19.7 - DIARRHEA, UNSPECIFIED
[2021-02-20] MEDS: Namenda 5 MG PO SCH (21:15)
[2021-02-20] MEDS: Zocor 10MG PO SCH (21:16)
[2021-02-20] MEDS ORDERED: SENNOSIDES PO SCH (22:00)
[2021-02-20] MEDS ORDERED: DOCUSATE SODIUM PO SCH (22:00)
[2021-02-20] MEDS ORDERED: NON-FORMULARY ITEM (Melatonin [Melatonin] 10 MG) PO SCH (22:00)
[2021-02-21] MEDS: Dextrose 5% -0.45 NaCl 1000 ML 1,000 ML IV SCH ×2 (01:51→15:31)
[2021-02-21] MEDS: Zestril 5 MG PO SCH (09:47)
[2021-02-21] MEDS: Senokot-S Tablet PO SCH ×2 (09:47→21:46)
[2021-02-21] MEDS: ISOPTIN S.R. 240 MG PO SCH (09:47)
[2021-02-21] MEDS: Ditropan XL 5 MG PO SCH (09:47)
[2021-02-21] MEDS: CLARITIN 10 MG PO SCH (09:48)
[2021-02-21] MEDS: PROTONIX 40 MG IV IV SCH (09:48)
[2021-02-21] MEDS: FOLTX (FOLBIC) PO SCH (09:48)
[2021-02-21] MEDS: ENOXAPARIN SODIUM SQ SCH ×2 (09:48→21:50)
[2021-02-21] MEDS: Aricept 10 MG PO SCH (09:48)
[2021-02-21] MEDS: ROCEPHIN 1 Gm-D5w 50 ml Bag** 1 G/50 ML IVPB IV SCH (09:48)
[2021-02-21] MEDS: Oxy-IR 5 MG PO PRN ×3 (09:53→22:35)
[2021-02-21] MEDS: Zocor 10MG PO SCH (21:46)
[2021-02-21] MEDS: Namenda 5 MG PO SCH (21:47)
[2021-02-22] MEDS: Dextrose 5% -0.45 NaCl 1000 ML 1,000 ML IV SCH (01:11)
[2021-02-22 03:37] VITALS: BP 113/55; PULSE 76; O2SAT 92
[2021-02-22] MEDS: Oxy-IR 5 MG PO PRN (07:13)
[2021-02-22] MEDS: ISOPTIN S.R. 240 MG PO SCH (08:31)
[2021-02-22] MEDS: CLARITIN 10 MG PO SCH ×2 (08:32→08:54)
[2021-02-22] MEDS: Senokot-S Tablet PO SCH ×2 (08:32→08:54)
[2021-02-22] MEDS: PROTONIX 40 MG IV IV SCH (08:32)
[2021-02-22] MEDS: ENOXAPARIN SODIUM SQ SCH (08:32)
[2021-02-22] MEDS: Ditropan XL 5 MG PO SCH ×2 (08:32→08:54)
[2021-02-22] MEDS: Aricept 10 MG PO SCH (08:32)
[2021-02-22] MEDS: FOLTX (FOLBIC) PO SCH ×2 (08:32→08:54)
[2021-02-22] MEDS: Zestril 5 MG PO SCH (08:32)
[2021-02-22] MEDS: ROCEPHIN 1 Gm-D5w 50 ml Bag** 1 G/50 ML IVPB IV SCH (08:33)
== END 2021-02-22 10:55 ==
LOC: ED 15:12 → MED SURG 18:27
PROVIDERS: ADMIT General Practice; ATTEND General Practice
DX: E87.0 Hyperosmolality and hypernatremia (principal); N17.9 Acute kidney failure, unspecified; K52.9 Noninfective gastroenteritis and colitis, unspecified; N39.0 Urinary tract infection, site not specified; R55 Syncope and collapse; I10 Essential (primary) hypertension; Z79.899 Other long term (current) drug therapy; F03.90 Unspecified dementia, unspecified severity, without behavioral disturbance, psychotic disturbance, mood disturbance, and anxiety; M81.0 Age-related osteoporosis without current pathological fracture
CPT/HCPCS: 0241U; 36000; 36415; 71045; 74176; 80048; 80053; 81001; 82947; 83036; 83605; 83690; 83735; 84484; 85025; 85027; 87040; 87077; 87086; 87186; 93005; 93268; 96365; 99284; G0378; J0696; J1650; J3480; A9270-GY